=== PATIENT | male | born 1945 | race Caucasian/White ===

== ENCOUNTER 2020-05-15 18:33 | Emergency (ER) | payer MEDICARE ==
[~2020-05-15] VITALS: Ht 172.7 cm; Wt 70.3 kg
[2020-05-15 18:33] VITALS: BP 84/56
--- NOTE | 2020-05-15 18:40 | PHYS DOC ---
General Adult EDM: Chief Complaint: ALTERED MENTAL STATUS HPI: HPI: 74-year-old male with significant history of hypertension, diabetes mellitus, COPD, CAD with CABG, CHF, who presents from nursing facility for the evaluation of altered mentation and reported apneic episodes. The patient is new to the [facility] facility as of noon today. The patient reportedly had gradually decreasing mentation, as well as reported apneic episodes lasting several seconds at a time. Upon presentation, GCS is 7. He has some dried emesis around his mouth concerning for aspiration event. Of note, the patient had a recent bowel resection for pneumatosis with PEG placement at [place] in the very recent past. Review of Systems: Review of Systems: Review of systems unable to be obtained secondary to altered mentation. Heart Score: Risk Factors: Risk Factors: DM, Current or recent (<one month) smoker, HTN, HLP, family history of CAD, obesity. Risk Scores: Score 0 - 3: 2.5% MACE over next 6 weeks - Discharge Home Score 4 - 6: 20.3% MACE over next 6 weeks - Admit for Clinical Observation Score 7 - 10: 72.7% MACE over next 6 weeks - Early Invasive Strategies Physical Exam: PE: Gen: Obtunded. Head: NC/AT. Eyes: No scleral icterus. No conjunctival injection. PERRL 4 mm. ENT: MMM. Dried emesis around mouth. Neck: Supple. NT. CV: Tachycardic and regular 125. Peripheral pulses intact. Resp: Rhonchorous bilaterally. Occasional apneic episodes witnessed to last ~15 seconds at a time. Abd: Soft. NT. ND. Upper abdominal PEG in place. MSK: No peripheral cyanosis. No edema. Neuro: GCS 7. Skin. Warm. Dry. Psych: Obtunded. Current Patient Data: Labs: Laboratory Tests Test 05/15/20 18:41 05/15/20 19:27 White Blood Count 8.7 x10^3/uL (4.0-11.0) Red Blood Count 4.25 x10^6/uL (4.30-5.70) L Hemoglobin 11.0 g/dL (13.0-17.5) L Hematocrit 34.1 % (39.0-53.0) L Mean Corpuscular Volume 80 fL (79-100) Mean Corpuscular Hemoglobin 26 pg (25-35) Mean Corpuscular Hemoglobin Concent 32 g/dL (31-37) Red Cell Distribution Width 18.3 % (11.5-14.5) H Platelet Count 607 x10^3/uL (140-400) H Neutrophils (%) (Auto) 81 % (31-73) H Lymphocytes (%) (Auto) 3 % (24-48) L Monocytes (%) (Auto) 10 % (0-9) H Eosinophils (%) (Auto) 5 % (0-3) H Basophils (%) (Auto) 1 % (0-3) Neutrophils # (Auto) 7.0 x10^3uL (1.8-7.7) Lymphocytes # (Auto) 0.3 x10^3/uL (1.0-4.8) L Monocytes # (Auto) 0.9 x10^3/uL (0.0-1.1) Eosinophils # (Auto) 0.5 x10^3/uL (0.0-0.7) Basophils # (Auto) 0.1 x10^3/uL (0.0-0.2) Segmented Neutrophils % 64 % (35-66) Band Neutrophils % 15 % (0-9) H Lymphocytes % 4 % (24-48) L Monocytes % 7 % (0-10) Eosinophils % 9 % (0-5) H Basophils % 1 % (0-3) Platelet Estimate Increased (ADEQUATE) Sodium Level 135 mmol/L (136-145) L Potassium Level 6.1 mmol/L (3.5-5.1) *H Chloride Level 101 mmol/L (98-107) Carbon Dioxide Level 19 mmol/L (21-32) L Anion Gap 15 (6-14) H Blood Urea Nitrogen 25 mg/dL (8-26) Creatinine 1.5 mg/dL (0.7-1.3) H Estimated GFR (Cockcroft-Gault) 46.0 BUN/Creatinine Ratio 17 (6-20) Glucose Level 145 mg/dL (70-99) H Lactic Acid Level 3.0 mmol/L (0.4-2.0) H Calcium Level 9.3 mg/dL (8.5-10.1) Magnesium Level 2.0 mg/dL (1.8-2.4) Total Bilirubin 0.9 mg/dL (0.2-1.0) Aspartate Amino Transferase (AST) 54 U/L (15-37) H Alanine Aminotransferase (ALT) 55 U/L (16-63) Alkaline Phosphatase 254 U/L (46-116) H Troponin I Quantitative < 0.017 ng/mL (0-0.055) ZQ-Vbo-P-Type Natriuretic Peptide 232 pg/mL (0-124) H Total Protein 7.2 g/dL (6.4-8.2) Albumin 2.7 g/dL (3.4-5.0) L Albumin/Globulin Ratio 0.6 (1.0-1.7) L Blood pH 7.35 (7.35-7.46) Blood Gas PCO2 35 mmHg (35-46) Blood Gas PO2 352 mmHg (71-100) H Blood Gas HCO3 19 mmol/L (21-28) L Arterial Bld O2 Saturation (Calc) 100 % (92-99) H FiO2 100 % EKG: EKG: [] Radiology/Procedures: Radiology/Procedures: []FINDINGS: Single view of chest obtained. Degenerative changes of bilateral shoulders. Poststernotomy changes with surgical clips. Calcific atherosclerosis. Well-defined focal airspace consolidation is not seen. IMPRESSION: * No focal airspace consolidation. Electronically signed by: Mukesh Lozano MD (05/15/2020 6:59 PM) [id number] Course & Med Decision Making: Course & Med Decision Making Pertinent Labs and Imaging studies reviewed. (See chart for details) In summary, 74-year-old male who presents from nursing facility in the setting of recent small bowel resection and PEG tube placement, further evaluation of altered mentation and acute respiratory failure. He was intubated for airway protection at around 1900 with a 7.5 ETT, 22 cm at lip with etomidate/sadia. He was hypotensive and tachycardic prehospital, receiving aggressive IV fluid resuscitation. He was also started on low-dose Levophed drip peripherally. Receiving Rocephin as well as Flagyl with concern for possible aspiration event given recent PEG tube placement as well as perioral dried emesis. Attempted IJ central line placement, though unfortunately, the ultrasound device was not functioning. The patient is currently more stable at this time with good peripheral IV access. We will hold off on blind central access at this time, though we will attempt line femoral line if the need arises. [place] based right femoral line placement given labile BP, requiring > 5 mcg/min levophed. No linear probe available for US guided procedure. Awaiting transport to ICU at [facility]. Spoke with spouse in [place], who initially requested transfer back to [place], though I stated that due to patient's critical state, patient would be best suited for the shortest possible transfer to a tertiary facility, i.e. [facility]. Spouse agreeable. Feroz Disclaimer: [employer] Disclaimer: This electronic medical record was generated, in whole or in part, using a voice recognition dictation system. Departure Departure: Impression: Primary Impression: Acute respiratory failure Additional Impressions: Altered mental status Septic shock Disposition: 05 TRANSFER OTHER ([facility]) Admitting Physician: Other (Dr. Stafford) Condition: CRITICAL Justification of Admission: Justification of Admission: Justification of Admission Dx: Yes CHF: Hemodynamic Instability Respiratory Failure: Severe Resp Distress CENTRAL LINE PLACEMENT CENTRAL LINE PLACEMENT: Occupation of Bpm Analyst: Attending Physician Central Line Indications: Long-term IV med use Hand Hygiene Performed?: Yes Maximum Sterile Barriers Used: Mask, Sterile Gown, Sterile Gloves, Large Sterile Drape, Cap Skin Preperation: (Check All): Chlorhexidine Gluconate Prep dry @ Skin Puncture: Yes Patient < 2 months of age?: No Known allergy to CHG?: No Safety concern in premature in: No Insertion Site: Femoral (right) Antimicrobial Catheter Used?: Yes Central Line Catheter Type?: Non-tunneled Successful Placement?: Yes Critical Care Time Critical care time was [40] minutes exclusive of procedures. OSMIN NELSON DO May 15, 2020 18:40
[2020-05-15] MEDS ORDERED: IV NORMAL SALINE 1,000ML 1,000 ML IV ONE ×3 (18:45→23:30)
[2020-05-15] MEDS ORDERED: NOREPINEPHRINE BITARTRATE 8 MG in IV DEXTROSE 5% 250 ML IV PRN (18:45)
[2020-05-15] MEDS ORDERED: IV NORMAL SALINE 250ML 250 ML ONE (18:48)
[2020-05-15] MEDS ORDERED: NOREPINEPHRINE BITARTRATE 4 MG/4 ML VIAL. IV ONE (18:48)
[2020-05-15 19:02] LABS: BASO # 0.1 x10^3/uL (0.0-0.2); BASO % 1 % (0-3); EOS # 0.5 x10^3/uL (0.0-0.7); EOS % 5 % (0-3); HEMATOCRIT 34.1 % (39.0-53.0); LYMPH # 0.3 x10^3/uL (1.0-4.8); LYMPH % 3 % (24-48); MEAN CORPUSCULAR HEMOGLOBIN 26 pg (25-35); MEAN CORPUSCULAR HGB CONC 32 g/dL (31-37); MEAN CORPUSCULAR VOLUME 80 fL (79-100); MONO # 0.9 x10^3/uL (0.0-1.1); MONO % 10 % (0-9); NEUT % 81 % (31-73); PLATELET COUNT 607 x10^3/uL (140-400); RED BLOOD COUNT 4.25 x10^6/uL (4.30-5.70); RED CELL DISTRIBUTION WIDTH 18.3 % (11.5-14.5); WHITE BLOOD COUNT 8.7 x10^3/uL (4.0-11.0)
--- NOTE | 2020-05-15 19:02 | RAD ---
INDICATION: Reason: resp distress / Spl. Instructions: / History: COMPARISON: None. FINDINGS: Single view of chest obtained. Degenerative changes of bilateral shoulders. Poststernotomy changes with surgical clips. Calcific atherosclerosis. Well-defined focal airspace consolidation is not seen. IMPRESSION: * No focal airspace consolidation. Electronically signed by: Mukesh Lozano MD (05/15/2020 6:59 PM) [id number]
[2020-05-15 19:23] LABS: ALBUMIN 2.7 g/dL (3.4-5.0); ALBUMIN/GLOBULIN RATIO 0.6 (1.0-1.7); CALCIUM 9.3 mg/dL (8.5-10.1); CREATININE 1.5 mg/dL (0.7-1.3); TOTAL BILIRUBIN 0.9 mg/dL (0.2-1.0); TOTAL PROTEIN 7.2 g/dL (6.4-8.2)
[2020-05-15 19:27] LABS: POTASSIUM 6.1 mmol/L (3.5-5.1)
[2020-05-15] MEDS ORDERED: MIDAZOLAM HCL 50 MG in IV NORMAL SALINE 50ML 50 ML IV PRN (19:30)
[2020-05-15 19:40] LABS: BGAS PH 7.35 (7.35-7.46)
[2020-05-15] MEDS ORDERED: ROCURONIUM 50 MG/5 ML VIAL. ONE (20:00)
[2020-05-15] MEDS ORDERED: MIDAZOLAM HCL PF 5 MG/5 ML VIAL. ONE (20:00)
[2020-05-15] MEDS ORDERED: ETOMIDATE 40 MG/20 ML VIAL. IV ONE (20:00)
[2020-05-15] MEDS ORDERED: cefTRIAXone SODIUM 1 GM VIAL ONE ×2 (21:13→23:23)
[2020-05-15] MEDS ORDERED: IV NORMAL SALINE 50ML 0 ML ONE (21:13)
[2020-05-15 21:15] LABS: % BANDS 15 % (0-9); % BASOS 1 % (0-3); % EOS 9 % (0-5); % LYMPHS 4 % (24-48); % MONOS 7 % (0-10); % SEGS 64 % (35-66)
[2020-05-15 21:16] LABS: PLT ESTIMATE INCREASED (ADEQUATE)
--- NOTE | 2020-05-15 21:26 | RAD ---
Exam: Chest one INDICATION: Intubation TECHNIQUE: Frontal view of the chest Comparisons: None FINDINGS: Endotracheal tube with tip approximately 2 cm above the yael. Sternotomy wires are noted. Surgical clips overlying the left heart border are seen. The cardiomediastinal silhouette and pulmonary vessels are within normal limits. Strandy opacities at the left lung base. No pleural effusion. IMPRESSION: Lines and tubes described. Electronically signed by: Kar Salazar MD (05/15/2020 9:24 PM) [id number]
[2020-05-15] MEDS ORDERED: IV NORMAL SALINE 50ML 50 ML ONE (23:24)
[2020-05-15] MEDS ORDERED: MIDAZOLAM HCL PF 5 MG/5 ML VIAL. IV ONE (23:30)
== END 2020-05-15 21:53 | disposition short-term general hospital (02) ==
LOC: ER 18:33
DX: A41.9 Sepsis, unspecified organism (principal); R65.21 Severe sepsis with septic shock; J96.00 Acute respiratory failure, unspecified whether with hypoxia or hypercapnia; R41.82 Altered mental status, unspecified; R11.10 Vomiting, unspecified; J44.9 Chronic obstructive pulmonary disease, unspecified; I11.0 Hypertensive heart disease with heart failure; I50.9 Heart failure, unspecified; E11.9 Type 2 diabetes mellitus without complications
CPT/HCPCS: 31500; 36415; 36556; 36600; 71045; 80053; 82803; 83605; 83735; 83880; 84484; 85007; 85025; 94002; 96365; 96375; 99291; J0696; J2250; J3010; J7030

== ENCOUNTER 2020-09-22 09:27 | Emergency (ER) | payer MEDICARE ==
[~2020-09-22] VITALS: Ht 172.7 cm; Wt 60.0 kg
--- NOTE | 2020-09-22 09:43 | PHYS DOC ---
Past History Past Medical History: CAD, COPD, Diabetes, GERD, High Cholesterol, Hypertension, VT, Pneumonia, Other Additional Past Medical Histor: osteoporosis,back pain,carotid stenosis,osteoarthritis,DDD,PTSD,RESP FAIL Past Surgical History: Coronary Bypass Surgery, Hip Replacement, Tonsillectomy, Other Additional Past Surgical Histo: CABG, BOWEL RESECTION WITH PEG, SEPSIS Alcohol Use: None General Adult EDM: Chief Complaint: URINARY FREQUENCY HPI: HPI: Patient is a male who was sent here from the intermediate because he was not following instruction and being combative today there. Patient was recently diagnosed with UTI on 09/20/20, was put on Macrobid 100 mg bid for 7 days. [place] ent refused to take his medications today, refuse to follow instruction there. Patient said he just bought the place. He owns the place. They are working for him so they have to listen to him not the other way around. Patient denied suicidal ideation or homicidal ideation. He denied any abdominal pain, no nausea or vomiting, no chest pain, no shortness of air, no fever, no cough. Review of Systems: Review of Systems: Constitutional: Denies fever or chills Eyes: Denies change in visual acuity HENT: Denies nasal congestion or sore throat Respiratory: Denies cough or shortness of breath Cardiovascular: Denies chest pain or edema GI: Denies abdominal pain, nausea, vomiting, bloody stools or diarrhea : Denies dysuria Musculoskeletal: Denies back pain or joint pain Integument: Denies rash Neurologic: Denies headache, focal weakness or sensory changes Endocrine: Denies polyuria or polydipsia Lymphatic: Denies swollen glands Psychiatric: Denies depression or anxiety Allergies: Allergies: Allergies Coded Allergies Type Severity Reaction Last Updated Verified gabapentin Allergy Unknown Rash 05/16/20 Yes pantoprazole Allergy Unknown Rash 05/16/20 Yes Physical Exam: PE: Constitutional: Well developed, well nourished, no acute distress, non-toxic appearance. [] HENT: Normocephalic, atraumatic, bilateral external ears normal, oropharynx moist, no oral exudates, nose normal. [] Eyes: PERRLA, EOMI, conjunctiva normal, no discharge. [] Neck: Normal range of motion, no tenderness, supple, no stridor. [] Cardiovascular:Heart rate regular rhythm, no murmur [] Lungs & Thorax: Bilateral breath sounds clear to auscultation [] Abdomen: Bowel sounds normal, soft, no tenderness, no masses, no pulsatile masses. [] Skin: Warm, dry, no erythema, no rash. [] Back: No tenderness, no CVA tenderness. [] Extremities: No tenderness, no cyanosis, no clubbing, ROM intact, no edema. [] Neurologic: Alert and oriented X 3, normal motor function, normal sensory function, no focal deficits noted. [] Psychologic: Affect normal, judgement normal, mood normal. [] Current Patient Data: Labs: Laboratory Tests Test 09/22/20 10:00 09/22/20 10:20 Urine Collection Type Unknown Urine Color Yellow Urine Clarity Cloudy Urine pH 5.5 Urine Specific [place] 1.025 Urine Protein 30 mg/dl Urine Glucose (UA) Neg mg/dL Urine Ketones (Stick) Neg mg/dL Urine Blood Large Urine Nitrite Neg Urine Bilirubin Neg Urine Urobilinogen Dipstick 0.2 mg/dL Urine Leukocyte Esterase Trace Urine RBC >40 /HPF Urine WBC 11-20 /HPF Urine Squamous Epithelial Cells Occ /LPF Urine Bacteria Few /HPF Urine Opiates Screen Neg Urine Methadone Screen Neg Urine Barbiturates Neg Urine Phencyclidine Screen Neg Urine Amphetamine/Methamphetamine Neg Urine Benzodiazepines Screen Neg Urine Cocaine Screen Neg Urine Cannabinoids Screen Neg Urine Ethyl Alcohol Neg White Blood Count 4.8 x10^3/uL Red Blood Count 4.85 x10^6/uL Hemoglobin 11.7 g/dL Hematocrit 37.0 % Mean Corpuscular Volume 76 fL Mean Corpuscular Hemoglobin 24 pg Mean Corpuscular Hemoglobin Concent 32 g/dL Red Cell Distribution Width 16.9 % Platelet Count 187 x10^3/uL Neutrophils (%) (Auto) 58 % Lymphocytes (%) (Auto) 25 % Monocytes (%) (Auto) 9 % Eosinophils (%) (Auto) 6 % Basophils (%) (Auto) 1 % Neutrophils # (Auto) 2.8 x10^3uL Lymphocytes # (Auto) 1.2 x10^3/uL Monocytes # (Auto) 0.4 x10^3/uL Eosinophils # (Auto) 0.3 x10^3/uL Basophils # (Auto) 0.1 x10^3/uL Sodium Level 137 mmol/L Potassium Level 3.2 mmol/L Chloride Level 102 mmol/L Carbon Dioxide Level 26 mmol/L Anion Gap 9 Blood Urea Nitrogen 10 mg/dL Creatinine 1.0 mg/dL Estimated GFR (Cockcroft-Gault) 73.2 BUN/Creatinine Ratio 10 Glucose Level 137 mg/dL Calcium Level 8.7 mg/dL Magnesium Level 1.8 mg/dL Total Bilirubin 0.6 mg/dL Aspartate Amino Transf (AST/SGOT) 30 U/L Alanine Aminotransferase (ALT/SGPT) 14 U/L Alkaline Phosphatase 129 U/L Total Protein 7.0 g/dL Albumin 2.6 g/dL Albumin/Globulin Ratio 0.6 Thyroid Stimulating Hormone (TSH) 2.217 uIU/mL Salicylates Level < 2.8 mg/dL Salicylate Last Dose Date Unknown Salicylate Last Dose Time Unknown Acetaminophen Level < 2 mcg/mL Acetaminophen Last Dose Date Unknown Acetaminophen Last Dose Time Unknown Current Medications Medications (Trade) Dose Ordered Sig/[place] Route PRN Reason Start Time Stop Time Status Last Admin Dose Admin Sodium Chloride 500 ml @ 0 mls/hr 1X ONCE IV 09/22/20 10:15 09/22/20 10:16 DC 09/22/20 10:39 Ceftriaxone Sodium 1 gm/ Sodium Chloride 50 ml @ 100 mls/hr 1X ONCE IV 09/22/20 11:45 09/22/20 12:14 DC 09/22/20 12:29 Sodium Chloride 500 ml @ 0 mls/hr 1X ONCE IV 09/22/20 11:45 09/22/20 11:51 DC 09/22/20 12:28 Sodium Chloride 50 ml @ As Directed STK-MED ONCE .ROUTE 09/22/20 12:21 09/22/20 12:21 DC Ceftriaxone Sodium (Rocephin) 1 gm STK-MED ONCE .ROUTE 09/22/20 12:21 09/22/20 12:21 DC Potassium Chloride (Klor-Con) 40 meq 1X ONCE PO 09/22/20 12:45 09/22/20 12:46 DC 09/22/20 13:19 EKG: EKG: [] Radiology/Procedures: Radiology/Procedures: [] Heart Score: Risk Factors: Risk Factors: DM, Current or recent (<one month) smoker, HTN, HLP, family history of CAD, obesity. Risk Scores: Score 0 - 3: 2.5% MACE over next 6 weeks - Discharge Home Score 4 - 6: 20.3% MACE over next 6 weeks - Admit for Clinical Observation Score 7 - 10: 72.7% MACE over next 6 weeks - Early Invasive Strategies Course & Med Decision Making: Course & Med Decision Making Pertinent Labs and Imaging studies reviewed. (See chart for details) Patient is a 75-year-old male who was sent here from intermediate because of he was not cooperative with them this morning.. He was very cooperative, follow instruction and command. He was found to have UTI. He was given IV fluid and Rocephin IV. He denied suicidal ideation or homicidal ideation. He was discharged back to the intermediate. Dragon Disclaimer: [employer] Disclaimer: This electronic medical record was generated, in whole or in part, using a voice recognition dictation system. Departure Departure: Impression: Primary Impression: UTI (urinary tract infection) Additional Impression: Dehydration Disposition: 01 DC HOME SELF CARE/HOMELESS Condition: STABLE Referrals: PCP,UNKNOWN (PCP) STOP TAKING ANTIBIOTIC Patient Instructions: Dehydration, Adult, Urinary Tract Infection Additional Instructions: Thank you for visiting our Emergency Department. We appreciate you trusting us with your care. If any additional problems come up don't hesitate to return to visit us. Please follow up with your primary care provider so they can plan additional care if needed and know about the problem that you had. If symptoms worsen come back to the Emergency Department. Any concerning symptoms that start such as chest pain, shortness of air, weakness or numbness on one side of the body, running high fevers or any other concerning symptoms return to the ER. Scripts Sulfamethoxazole/Trimethoprim (BACTRIM DS TABLET) 1 Each Tablet 1 TAB PO BID for uti for 10 Days, #20 TAB 0 Refills Prov: KEVIN PADILLA DO 09/22/20 KEVIN PADILLA DO Sep 22, 2020 09:43
[2020-09-22] MEDS ORDERED: IV NORMAL SALINE 500ML 500 ML IV ONE ×2 (10:15→11:45)
[2020-09-22 10:30] LABS: BARBITURATES NEG (NEG); BENZODIAZEPINES NEG (NEG); CANNABINOIDS NEG (NEG); COCAINE NEG (NEG); METHADONE NEG (NEG); OPIATES NEG (NEG); PHENCYCLIDINE NEG (NEG)
[2020-09-22 10:36] LABS: BILIRUBIN,URINE NEG (NEG); CLARITY,URINE CLOUDY; COLOR,URINE YELLOW; GLUCOSE,URINE NEG (NEG); NITRITE,URINE NEG (NEG); RBC,URINE >40 /HPF (0-2); UROBILINOGEN,URINE 0.2 mg/dL (0.2 mg/dL)
[2020-09-22 10:37] LABS: BACTERIA,URINE FEW /HPF (0-FEW); SQUAMOUS EPITHELIAL CELL,UR OCC /LPF
[2020-09-22 10:44] LABS: AMPHETAMINE/METHAMPHETAMINE NEG (NEG)
[2020-09-22 10:59] LABS: BASO # 0.1 x10^3/uL (0.0-0.2); BASO % 1 % (0-3); CALCIUM 8.7 mg/dL (8.5-10.1); EOS # 0.3 x10^3/uL (0.0-0.7); EOS % 6 % (0-3); GFR 73.2; HEMOGLOBIN 11.7 g/dL (13.0-17.5); LYMPH # 1.2 x10^3/uL (1.0-4.8); LYMPH % 25 % (24-48); MEAN CORPUSCULAR HEMOGLOBIN 24 pg (25-35); MEAN CORPUSCULAR HGB CONC 32 g/dL (31-37); MEAN CORPUSCULAR VOLUME 76 fL (79-100); MONO # 0.4 x10^3/uL (0.0-1.1); MONO % 9 % (0-9); NEUT # 2.8 x10^3uL (1.8-7.7); NEUT % 58 % (31-73); PLATELET COUNT 187 x10^3/uL (140-400); POTASSIUM 3.2 mmol/L (3.5-5.1); RED BLOOD COUNT 4.85 x10^6/uL (4.30-5.70); RED CELL DISTRIBUTION WIDTH 16.9 % (11.5-14.5); WHITE BLOOD COUNT 4.8 x10^3/uL (4.0-11.0)
[2020-09-22 11:04] LABS: ACETAMIN < 2 mcg/mL (10-30); SALIC < 2.8 mg/dL (2.8-20.0)
[2020-09-22 11:05] LABS: ALBUMIN 2.6 g/dL (3.4-5.0); ALBUMIN/GLOBULIN RATIO 0.6 (1.0-1.7); MAGNESIUM 1.8 mg/dL (1.8-2.4); TOTAL BILIRUBIN 0.6 mg/dL (0.2-1.0)
[2020-09-22] MEDS ORDERED: IV NORMAL SALINE 50ML 50 ML ONE (12:21)
[2020-09-22] MEDS ORDERED: cefTRIAXone SODIUM 1 GM VIAL ONE (12:21)
[2020-09-22] MEDS ORDERED: POTASSIUM CHLORIDE 20 MEQ TABLET.ER. PO ONE (12:45)
[2020-09-22 13:20] VITALS: BP 126/56
[2020-09-22] MEDS ORDERED: SULF1TAB24 PO (13:50)
[2020-09-22] MEDS ORDERED: VIT1TABL6 PO (22:54)
[2020-09-22] MEDS ORDERED: AMLO2.5T5 PO (22:54)
[2020-09-22] MEDS ORDERED: MIRT7.5T8 PO (22:54)
[2020-09-22] MEDS ORDERED: TAMS0.4C97 PO (22:54)
[2020-09-22] MEDS ORDERED: LANO250L TP (22:54)
[2020-09-22] MEDS ORDERED: TRAM50TA PO (22:54)
[2020-09-22] MEDS ORDERED: MELA10TA PO (22:54)
[2020-09-22] MEDS ORDERED: CHOL5POW PO (22:54)
[2020-09-22] MEDS ORDERED: FAMO20TA5 PO (22:54)
[2020-09-22] MEDS ORDERED: APIX5TAB3 PO (22:54)
[2020-09-22] MEDS ORDERED: ACET325T21 PO (22:54)
[2020-09-22] MEDS ORDERED: ALBU2.5V5 NEB (22:54)
[2020-09-22] MEDS ORDERED: LOPE2TAB27 PO (22:54)
[2020-09-22] MEDS ORDERED: OLAN2.5T3 PO (22:54)
[2020-09-22] MEDS ORDERED: GLUC1KIT IM (22:54)
[2020-09-22] MEDS ORDERED: METO25TA4 PO (22:54)
[2020-09-22] MEDS ORDERED: L. R1CAP2 PO (22:54)
[2020-09-22] MEDS ORDERED: NPH,100I3 SQ (22:54)
[2020-09-22] MEDS ORDERED: HALO5AMP IJ (22:54)
[2020-09-22] MEDS ORDERED: ASPI81TA59 PO (22:54)
[2020-09-22] MEDS ORDERED: IPRA3AMP29 NEB (22:54)
[2020-09-22] MEDS ORDERED: POTA20TA4 PO (22:54)
== END 2020-09-22 14:39 | disposition home or self-care (01) ==
LOC: ER 09:27
DX: N39.0 Urinary tract infection, site not specified (principal); E86.0 Dehydration; R35.0 Frequency of micturition; J44.9 Chronic obstructive pulmonary disease, unspecified; K21.9 Gastro-esophageal reflux disease without esophagitis; E11.9 Type 2 diabetes mellitus without complications; E78.00 Pure hypercholesterolemia, unspecified; I11.9 Hypertensive heart disease without heart failure; I25.2 Old myocardial infarction; Z98.890 Other specified postprocedural states; Z88.8 Allergy status to other drugs, medicaments and biological substances
CPT/HCPCS: 36415; 80053; 80307; 80329; 81001; 83735; 84443; 85025; 87086; 96361; 96365; 99284; J0696; J7040; G0480

== ENCOUNTER 2020-09-22 19:49 | Inpatient (IN) | payer MEDICARE ==
[~2020-09-22] VITALS: Ht 165.1 cm; Wt 63.6 kg
[~2020-09-22 19:49] MED LIST: SULF1TAB24 PO
[2020-09-22 21:10] VITALS: BP 148/71
[2020-09-22] MEDS ORDERED: AMLO2.5T5 PO (22:54)
[2020-09-22] MEDS ORDERED: ASPI81TA59 PO (22:54)
[2020-09-22] MEDS ORDERED: VIT1TABL6 PO (22:54)
[2020-09-22] MEDS ORDERED: METO25TA4 PO (22:54)
[2020-09-22] MEDS ORDERED: L. R1CAP2 PO (22:54)
[2020-09-22] MEDS ORDERED: ALBU2.5V5 NEB (22:54)
[2020-09-22] MEDS ORDERED: OLAN2.5T3 PO (22:54)
[2020-09-22] MEDS ORDERED: GLUC1KIT IM (22:54)
[2020-09-22] MEDS ORDERED: POTA20TA4 PO (22:54)
[2020-09-22] MEDS ORDERED: APIX5TAB3 PO (22:54)
[2020-09-22] MEDS ORDERED: LANO250L TP (22:54)
[2020-09-22] MEDS ORDERED: IPRA3AMP29 NEB (22:54)
[2020-09-22] MEDS ORDERED: FAMO20TA5 PO (22:54)
[2020-09-22] MEDS ORDERED: ACET325T21 PO (22:54)
[2020-09-22] MEDS ORDERED: NPH,100I3 SQ (22:54)
[2020-09-22] MEDS ORDERED: HALO5AMP IJ (22:54)
[2020-09-22] MEDS ORDERED: MELA10TA PO (22:54)
[2020-09-22] MEDS ORDERED: TAMS0.4C97 PO (22:54)
[2020-09-22] MEDS ORDERED: MIRT7.5T8 PO (22:54)
[2020-09-22] MEDS ORDERED: LOPE2TAB27 PO (22:54)
[2020-09-22] MEDS ORDERED: TRAM50TA PO (22:54)
[2020-09-22] MEDS ORDERED: CHOL5POW PO (22:54)
[2020-09-22 22:58] LABS: BASO # 0.1 x10^3/uL (0.0-0.2); BASO % 1 % (0-3); EOS # 0.3 x10^3/uL (0.0-0.7); EOS % 4 % (0-3); HEMATOCRIT 36.1 % (39.0-53.0); HEMOGLOBIN 11.3 g/dL (13.0-17.5); LYMPH # 1.5 x10^3/uL (1.0-4.8); LYMPH % 23 % (24-48); MEAN CORPUSCULAR HEMOGLOBIN 24 pg (25-35); MEAN CORPUSCULAR HGB CONC 31 g/dL (31-37); MEAN CORPUSCULAR VOLUME 76 fL (79-100); MONO # 0.8 x10^3/uL (0.0-1.1); MONO % 12 % (0-9); NEUT % 60 % (31-73); PLATELET COUNT 199 x10^3/uL (140-400); RED BLOOD COUNT 4.73 x10^6/uL (4.30-5.70); WHITE BLOOD COUNT 6.7 x10^3/uL (4.0-11.0)
[2020-09-22 23:14] LABS: ALBUMIN 2.4 g/dL (3.4-5.0); ALBUMIN/GLOBULIN RATIO 0.6 (1.0-1.7); CALCIUM 8.3 mg/dL (8.5-10.1); GFR 73.2; MAGNESIUM 1.9 mg/dL (1.8-2.4); TOTAL BILIRUBIN 0.3 mg/dL (0.2-1.0); TOTAL PROTEIN 6.4 g/dL (6.4-8.2)
[2020-09-22 23:27] LABS: POTASSIUM 2.9 mmol/L (3.5-5.1)
[2020-09-22] MEDS: POTASSIUM BICARB 10 MEQ EFFERVESCENT TABLET. FT SCH (23:35)
[2020-09-23 00:35] LABS: BILIRUBIN,URINE NEG (NEG); CLARITY,URINE CLOUDY; COLOR,URINE YELLOW; GLUCOSE,URINE NEG (NEG); NITRITE,URINE NEG (NEG); RBC,URINE >40 /HPF (0-2); UROBILINOGEN,URINE 0.2 mg/dL (0.2 mg/dL)
[2020-09-23 00:36] LABS: BACTERIA,URINE FEW /HPF (0-FEW); SQUAMOUS EPITHELIAL CELL,UR OCC /LPF
--- NOTE | 2020-09-23 02:35 | EKG ---
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
[2020-09-23] MEDS: POTASSIUM BICARB 10 MEQ EFFERVESCENT TABLET. FT SCH (03:40)
[2020-09-23 08:50] VITALS: BP 149/77
[2020-09-23 09:48] VITALS: BP 139/75
[2020-09-23 10:48] LABS: THYROID STIM HORMONE (TSH) 2.056 uIU/mL (0.358-3.740)
[2020-09-23 11:31] LABS: CALCIUM 8.5 mg/dL (8.5-10.1); CREATININE 0.9 mg/dL (0.7-1.3); GFR 82.7; POTASSIUM 3.7 mmol/L (3.5-5.1)
[2020-09-23] MEDS ORDERED: ACETAMINOPHEN 325 MG TABLET PO PRN (12:30)
[2020-09-23] MEDS ORDERED: HALOPERIDOL LACTATE 5 MG IJ SCH ×2 (12:30→13:00)
[2020-09-23] MEDS ORDERED: IPRATRPIUM/ALBUTEROL 0.5/2.5MG 3 ML NEBU. NEB PRN ×2 (12:30→13:00)
[2020-09-23] MEDS ORDERED: NON FORMULARY ITEM (Glucagon,Human Recombinant (Glucagon Emergency Kit) 1 MG) IM SCH ×2 (12:30→13:00)
[2020-09-23] MEDS ORDERED: NON FORMULARY ITEM (Melatonin 1 TAB) PO PRN ×2 (12:30→13:00)
[2020-09-23] MEDS ORDERED: LOPERAMIDE HCL PO PRN ×2 (12:30→13:00)
[2020-09-23] MEDS ORDERED: ALBUTEROL SULFATE 2.5 MG/3 ML NEBU. NEB PRN ×2 (12:30→13:00)
[2020-09-23] MEDS ORDERED: traMADol 50 MG TABLET PO PRN ×2 (12:30→13:00)
[2020-09-23] MEDS ORDERED: MINERAL OIL TP PRN ×2 (12:30→13:00)
[2020-09-23] MEDS ORDERED: LANOLIN TP PRN ×2 (12:30→13:00)
--- NOTE | 2020-09-23 13:23 | SSS ---
ADMIT DATE: 09/23/2020 HISTORY OF PRESENT ILLNESS: The patient is a 75-year-old male patient, a resident at [facility] in [facility], who was admitted to [facility] to be screened for COVID-19 as he will be admitted to [facility] on account of chasing staff, threatening to rape and kill the staff, coming after the staff, threatening to burn down the facility and kill himself, he is going to get a gun. Despite treatment with Haldol, the patient continue this behavior and therefore, the patient was admitted and in fact his tested for coronavirus that to be negative. He himself denied any complaint; however, on initial evaluation, he was found to have hypokalemia with serum potassium of 2.9 that was replenished and his serum potassium is now 3.7 mEq per liter. PAST MEDICAL HISTORY: Significant for type 2 diabetes mellitus with hyperglycemia, dysphagia, oropharyngeal phase. He has chronic obstructive pulmonary disease, severe protein-calorie malnutrition. He has heart failure, essential hypertension, atherosclerotic disease with coronary artery disease, status post coronary artery bypass graft surgery, benign prostatic hypertrophy and resultant urinary retention. He has a gastrostomy tube. PAST SURGICAL HISTORY: Significant for bilateral cataract extraction, tonsillectomy, has coronary artery bypass graft surgery and right hip arthroplasty. He apparently has had a gastrostomy before, that was removed. ALLERGIES: HE IS ALLERGIC TO CALCITONIN, GABAPENTIN AND PROTONIX. MEDICATIONS: He is currently on following medications: He is on ipratropium bromide and albuterol sulfate 0.5-2.5 mg 3 mL by nebulizer twice a day, albuterol sulfate 2.5 mg 3 mL by nebulizer every 4 hours, tamsulosin 0.4 mg daily, apixaban 5 mg twice a day, cholestyramine 5 g powder twice a day, metoprolol tartrate 25 mg p.o. b.i.d., amlodipine besylate 2.5 mg daily, aspirin 81 mg once a day, tramadol 50 mg p.o. q.i.d., acetaminophen 650 mg every 6 hours, mirtazapine 7.5 mg at bedtime, Haldol 5 mg/mL, olanzapine 2.5 mg at bedtime, potassium chloride 20 mEq once a day, loperamide 2 mg 4 times a day, famotidine 20 mg twice a day, lactobacillus rhamnosus 1 capsule daily. He is on NPH insulin 10 units 3 times a day before meals and glucagon 1 mg intramuscular as needed for hypoglycemia, Eucerin cream applied topically as needed for dry skin twice a day, Cerefolin tablet 1 tablet daily and melatonin 3 mg at bedtime. REVIEW OF SYSTEMS: As per history of present illness. FAMILY HISTORY: Noncontributory. SOCIAL HISTORY: He is , has no children. According to him, he continued to smoke, does not drink alcohol or use recreational drugs. 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 PHYSICAL EXAMINATION: GENERAL: When I examined him this afternoon, he looked well and was clearly in no apparent respiratory distress. He was pale, but no jaundice, cyanosis or thyromegaly. No jugular venous distention or limb edema. VITAL SIGNS: His heart rate was 81, blood pressure was 139/75, temperature was 98.5, respiratory rate was 16, and oxygen saturation was 97% on room air. HEAD, EYES, EARS, NOSE AND THROAT: Showed normocephalic and atraumatic. NECK: Supple. HEART: Normal first and second heart sounds. No gallop, rub or murmur. CHEST: Showed central trachea, equal bilateral chest expansion, air entry, vesicular breath sounds. No crepitation or rhonchi. ABDOMEN: Distended, soft, nontender. NEUROLOGIC: He is awake, alert, responding appropriately. All cranial nerves intact. EXTREMITIES: He moves extremities without difficulty. He apparently ambulates with a walker. LABORATORY DATA: Showed a white cell count of 6700, hemoglobin 11, hematocrit 36, MCV 76 and platelet count of 199,000 with normal manual differential. His chemistry initially showed a serum sodium 140, potassium 2.9, chloride 106, bicarbonate 26, anion gap of 8, BUN 7, creatinine 1, estimated GFR was 73 mL per minute. His glucose was 50. Calcium was 8.3, magnesium was 1.9. Total bilirubin, AST, ALT, alkaline phosphatase were normal. Total protein was 6.4, albumin was 2.4. Serum triglycerides were 109, total cholesterol was 131, LDL was 75, HDL cholesterol was 34 and ratio was 3. TSH was 2.056. His D-dimer was 1.36. Urinalysis showed the urine was yellow, cloudy with a pH of 6, specific gravity of 1.030, small amount of protein. The urine was negative for glucose, ketones. There was large amount of blood, negative for nitrite and leukocyte esterase. There were more than 40 rbc's, 5-10 wbc's, and very few bacteria. His SARS-CoV-2 by PCR was negative. IMPRESSION: In summary, this is a 75-year-old male patient, who was a resident at [facility] in [facility], who was admitted on account of chasing staff, threatening to rape and kill staff, coming after the staff, threatening to burn down the facility and kill himself, he is going to get a gun. The patient was screened for his COVID-19 at the skilled side and turned out to be negative and therefore, the patient will be admitted to [facility] for inpatient psychiatric stabilization. RASHI RANDHAWA MD DR: JEAN/mirtha JOB#: [id number] / [id number]
[2020-09-23] MEDS ORDERED: NPH HUMAN INSULIN ISOPHANE SQ SCH ×2 (16:30)
[2020-09-23] MEDS ORDERED: OLANZapine 2.5 MG TABLET PO SCH ×2 (21:00)
[2020-09-23] MEDS ORDERED: SMX/TMP 800/160MG 2TABLET STARTPACK. PO SCH ×2 (21:00)
[2020-09-23] MEDS ORDERED: APIXABAN 5 MG TABLET. PO SCH ×2 (21:00)
[2020-09-23] MEDS ORDERED: MIRTAZAPINE 7.5 MG TABLET. PO SCH ×2 (21:00)
[2020-09-23] MEDS ORDERED: CHOLESTYRAMINE 4 GM PO SCH ×2 (21:00)
[2020-09-23] MEDS ORDERED: METOPROLOL TART IMMED RELEASE 25 MG TABLET. PO SCH ×2 (21:00)
[2020-09-23] MEDS ORDERED: FAMOTIDINE 20 MG TABLET PO SCH ×2 (21:00)
[2020-09-24] MEDS ORDERED: ASPIRIN CHEWABLE 81 MG TABLET. PO SCH ×2 (09:00)
[2020-09-24] MEDS ORDERED: INULIN PO SCH ×2 (09:00)
[2020-09-24] MEDS ORDERED: VIT B12 PO SCH ×2 (09:00)
[2020-09-24] MEDS ORDERED: POTASSIUM CHLORIDE 20 MEQ TABLET.ER. PO SCH ×2 (09:00)
[2020-09-24] MEDS ORDERED: VIT B6 PO SCH ×2 (09:00)
[2020-09-24] MEDS ORDERED: RHAMNOSUS GG PO SCH ×2 (09:00)
[2020-09-24] MEDS ORDERED: TAMSULOSIN 0.4 MG CAP.ER.24H. PO SCH ×2 (09:00)
[2020-09-24] MEDS ORDERED: B2 PO SCH ×2 (09:00)
[2020-09-24] MEDS ORDERED: amLODIPine BESYLATE 2.5 MG TABLET PO SCH ×2 (09:00)
[2020-09-24] MEDS ORDERED: LMEFOLATE CA PO SCH ×2 (09:00)
== END 2020-09-23 12:57 | DRG 640 ==
LOC: ICU 19:49 → UNDODISIN 09-23 12:57
PROVIDERS: ADMIT Internal Medicine; ATTEND Internal Medicine
DX: E87.6 Hypokalemia (principal); E43 Unspecified severe protein-calorie malnutrition; E11.9 Type 2 diabetes mellitus without complications; I11.0 Hypertensive heart disease with heart failure; I25.10 Atherosclerotic heart disease of native coronary artery without angina pectoris; I50.9 Heart failure, unspecified; J44.9 Chronic obstructive pulmonary disease, unspecified; Z96.641 Presence of right artificial hip joint; N40.1 Benign prostatic hyperplasia with lower urinary tract symptoms; R13.12 Dysphagia, oropharyngeal phase; Z20.828 Contact with and (suspected) exposure to other viral communicable diseases; Z93.1 Gastrostomy status; Z95.1 Presence of aortocoronary bypass graft; Z98.41 Cataract extraction status, right eye; Z98.42 Cataract extraction status, left eye; Z88.8 Allergy status to other drugs, medicaments and biological substances; Z68.23 Body mass index [BMI] 23.0-23.9, adult
CPT/HCPCS: 36415; 80048; 80053; 80061; 81001; 82306; 82607; 83036; 83735; 84443; 85025; 85379; 86592; 87086; 93005; U0003

== ENCOUNTER 2020-09-23 12:57 | Inpatient (IN) | payer MEDICARE ==
[~2020-09-23] VITALS: Ht 165.1 cm; Wt 65.6 kg
[~2020-09-23 12:57] MED LIST changes: +ACET325T21 PO; +ALBU2.5V5 NEB; +AMLO2.5T5 PO; +APIX5TAB3 PO; +ASPI81TA59 PO; +CHOL5POW PO; +FAMO20TA5 PO; +GLUC1KIT IM; +HALO5AMP IJ; +IPRA3AMP29 NEB; +L. R1CAP2 PO; +LANO250L TP; +LOPE2TAB27 PO; +MELA10TA PO; +METO25TA4 PO; +MIRT7.5T8 PO; +NPH,100I3 SQ; +OLAN2.5T3 PO; +POTA20TA4 PO; +TAMS0.4C97 PO; +TRAM50TA PO; +VIT1TABL6 PO
[2020-09-23] MEDS ORDERED: ALBUTEROL SULFATE 2.5 MG/3 ML NEBU. NEB PRN (14:15)
[2020-09-23] MEDS ORDERED: IPRATRPIUM/ALBUTEROL 0.5/2.5MG 3 ML NEBU. NEB PRN (14:15)
[2020-09-23] MEDS ORDERED: MINERAL OIL/PETROLATUM TOPICAL CREAM 113GM JAR. TP PRN (14:45)
[2020-09-23] MEDS ORDERED: MAG HYDROX/AL HYDROX/SIMETH 30 ML ORAL.SUSP PO PRN (14:45)
[2020-09-23] MEDS ORDERED: GLUCAGON,HUMAN RECOMBINANT 1 MG KIT. IM PRN (14:45)
[2020-09-23] MEDS ORDERED: MAGNESIUM HYDROXIDE 2,400 MG/30 ML ORAL.SUSP. PO PRN (14:45)
[2020-09-23] MEDS ORDERED: LOPERAMIDE 2 MG CAPSULE PO PRN (14:45)
[2020-09-23] MEDS ORDERED: METHYL SALICYLATE/MENTHOL TOPICAL OINTMENT 57GM TUBE. TP PRN (14:45)
[2020-09-23] MEDS: INSULIN LISPRO 300 UNITS/3 ML VIAL. SQ SCH (17:00)
[2020-09-23 17:34] VITALS: BP 119/71
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
[2020-09-23] MEDS: FAMOTIDINE 20 MG TABLET PO SCH (20:28)
[2020-09-23] MEDS: OLANZapine 2.5 MG TABLET PO SCH (20:28)
[2020-09-23] MEDS: LACTOBACILLUS RHAMNOSUS GG 1 CAPSULE. PO SCH (20:28)
[2020-09-23] MEDS: CHOLESTYRAMINE/ASPARTAME 4 GM PACKET PO SCH (20:28)
[2020-09-23] MEDS: MIRTAZAPINE 7.5 MG TABLET. PO SCH (20:28)
[2020-09-23] MEDS: METOPROLOL TART IMMED RELEASE 25 MG TABLET. PO SCH (20:28)
[2020-09-23] MEDS: APIXABAN 5 MG TABLET. PO SCH (20:29)
[2020-09-23] MEDS: CEFDINIR 300 MG CAPSULE PO SCH (20:29)
--- NOTE | 2020-09-23 20:45 | PDOC ---
Exam Note: Richy Note: Please also refer to the separate dictated note~for this date of service dictated separately.~Patient seen individually. Discussed the patient with Nursing staff reviewed the chart.~Reviewed interim history and current functioning. Reviewed vital signs,~Labs/ Radiology~and current medications noted below. Continue current treatment with the changes noted in the dictated addendum note Assessment: Vital Signs/I&O: Vital Signs Date Time Temp Pulse Resp B/P (MAP) Pulse Ox O2 Delivery O2 Flow Rate FiO2 09/23/20 17:34 98.8 86 18 119/71 (87) 97 Labs: Laboratory Tests Test 09/23/20 15:15 09/23/20 16:55 D-Dimer (Rachel) 2.16 mg/L (0.00-0.50) H Magnesium Level 1.8 mg/dL (1.8-2.4) Glucose (Fingerstick) 117 mg/dL (70-99) H Current Medications: Meds: Current Medications Medications (Trade) Dose Ordered Sig/[place] Route PRN Reason Start Time Stop Time Status Last Admin Dose Admin Insulin Human Lispro (HumaLOG) 10 units TIDWMEALS SQ 09/23/20 17:00 09/23/20 17:00 I have reviewed the current psychotropics carefully including drug interactions. Risk benefit ratio favors no change other than as noted in my dictated progress note. Diagnosis: Problems: (1) Major neurocognitive disorder (2) Dementia in Alzheimer's disease with delusions (3) Dementia in Alzheimer's disease with depression (4) Dementia of the Alzheimer's type with early onset with behavioral disturbance (5) Dementia, vascular, with delusions (6) Dementia, vascular, with depression (7) Anxiety disorder, unspecified (8) Impulse control disorder, unspecified MAYURI ANDERSEN MD Sep 23, 2020 20:45
[2020-09-23] MEDS ORDERED: SMZ/TMP 800/160MG TABLET. PO SCH (21:00)
[2020-09-24 05:57] VITALS: BP 160/80
[2020-09-24] MEDS ORDERED: VIT B12 PO SCH (09:00)
[2020-09-24] MEDS ORDERED: VIT B6 PO SCH (09:00)
[2020-09-24] MEDS ORDERED: B2 PO SCH (09:00)
[2020-09-24] MEDS ORDERED: LMEFOLATE CA PO SCH (09:00)
[2020-09-24] MEDS: POTASSIUM CHLORIDE 20 MEQ TABLET.ER. PO SCH (09:36)
[2020-09-24] MEDS: ASPIRIN CHEWABLE 81 MG TABLET. PO SCH (09:36)
[2020-09-24] MEDS: CHOLESTYRAMINE/ASPARTAME 4 GM PACKET PO SCH ×2 (09:36→20:31)
[2020-09-24] MEDS: LACTOBACILLUS RHAMNOSUS GG 1 CAPSULE. PO SCH ×2 (09:36→20:31)
[2020-09-24] MEDS: TAMSULOSIN 0.4 MG CAP.ER.24H. PO SCH (09:36)
[2020-09-24] MEDS: CEFDINIR 300 MG CAPSULE PO SCH (09:37)
[2020-09-24] MEDS: amLODIPine BESYLATE 2.5 MG TABLET PO SCH (09:37)
[2020-09-24] MEDS: METOPROLOL TART IMMED RELEASE 25 MG TABLET. PO SCH ×2 (09:37→20:32)
[2020-09-24] MEDS: FAMOTIDINE 20 MG TABLET PO SCH ×2 (09:37→20:32)
[2020-09-24] MEDS: APIXABAN 5 MG TABLET. PO SCH ×2 (09:38→20:32)
[2020-09-24] MEDS: INSULIN LISPRO 300 UNITS/3 ML VIAL. SQ SCH ×3 (09:39→17:34)
[2020-09-24] MEDS: DIVALPROEX 125 MG CAP.SPRINK PO SCH ×2 (12:52→17:33)
--- NOTE | 2020-09-24 13:44 | RAD ---
CT HEAD INDICATION: Mental status change COMPARISON: None Available. Exposure: One or more of the following individualized dose reduction techniques were utilized for this examination: 1. Automated exposure control 2. Adjustment of the mA and/or kV according to patient size 3. Use of iterative reconstruction technique TECHNIQUE: 5 mm contiguous axial images were obtained from the skull base to the vertex in both bone and soft tissue algorithm. FINDINGS: Mild bilateral periventricular white matter hypodensities likely chronic small vessel ischemic disease. No evidence of acute intracranial hemorrhage. No extra-axial fluid collections. No mass effect or midline shift. Ventricular size is appropriate. Basal cisterns are patent. No fractures identified.Arrieta-white differentiation is preserved.Globes and orbits are within normal limits. Paranasal sinuses and mastoid air cells are clear. IMPRESSION: No acute intracranial findings. Electronically signed by: Jose Dominguez MD (09/24/2020 1:42 PM) [id number]
[2020-09-24 15:11] VITALS: BP 118/72
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
[2020-09-24] MEDS: CHOLECALCIFEROL (VITAMIN D3) 50,000 UNIT CAPSULE PO SCH (17:59)
[2020-09-24] MEDS: OLANZapine 2.5 MG TABLET PO SCH (20:31)
[2020-09-24] MEDS: MIRTAZAPINE 7.5 MG TABLET. PO SCH (20:32)
--- NOTE | 2020-09-24 21:16 | PDOC ---
Exam Note: Richy Note: Please also refer to the separate dictated note~for this date of service dictated separately.~Patient seen individually. Discussed the patient with Nursing staff reviewed the chart.~Reviewed interim history and current functioning. Reviewed vital signs,~Labs/ Radiology~and current medications noted below. Continue current treatment with the changes noted in the dictated addendum note Assessment: Vital Signs/I&O: Vital Signs Date Time Temp Pulse Resp B/P (MAP) Pulse Ox O2 Delivery O2 Flow Rate FiO2 09/24/20 20:32 89 118/72 09/24/20 15:11 98.3 17 97 09/24/20 05:57 Room Air I & O 09/23/20 09/23/20 09/24/20 15:00 23:00 07:00 Intake Total 260 ml Balance 260 ml Labs: Laboratory Tests Test 09/24/20 08:00 09/24/20 11:50 09/24/20 17:04 Glucose (Fingerstick) 123 mg/dL (70-99) H 63 mg/dL (70-99) L 159 mg/dL (70-99) H Current Medications: Meds: Current Medications Medications (Trade) Dose Ordered Sig/[place] Route PRN Reason Start Time Stop Time Status Last Admin Dose Admin Amlodipine Besylate (Norvasc) 2.5 mg DAILY PO 09/24/20 09:00 09/24/20 09:37 Aspirin (Aspirin Chewable) 81 mg DAILY PO 09/24/20 09:00 09/24/20 09:36 Potassium Chloride (Klor-Con) 20 meq DAILY PO 09/24/20 09:00 09/24/20 09:36 Tamsulosin HCl (Flomax) 0.4 mg DAILY PO 09/24/20 09:00 09/24/20 09:36 Divalproex Sodium (Depakote Sprinkles) 125 mg 0900,1700 PO 09/24/20 12:30 09/24/20 17:33 Vitamin D (Vitamin D3) 50,000 unit WEEKLY PO 09/24/20 17:45 09/24/20 17:59 I have reviewed the current psychotropics carefully including drug interactions. Risk benefit ratio favors no change other than as noted in my dictated progress note. Diagnosis: Problems: (1) History of encephalopathy (2) Impulse control disorder, unspecified (3) Anxiety disorder, unspecified (4) Dementia, vascular, with depression (5) Dementia, vascular, with delusions (6) Dementia in Alzheimer's disease with depression (7) Dementia in Alzheimer's disease with delusions (8) Dementia of the Alzheimer's type with early onset with behavioral disturbance (9) Major neurocognitive disorder MAYURI ANDERSEN MD Sep 24, 2020 21:16
[2020-09-25] MEDS: traMADol 50 MG TABLET PO PRN (03:50)
[2020-09-25 05:51] VITALS: BP 137/73
--- NOTE | 2020-09-25 07:54 | PDOC ---
Exam Note: Richy Note: This note is a late entry for 09/24/2020 covers elements not covered in my initial note. Subjective: The patient was seen on telehealth rounds in the morning of 09/24/2020 for treatment team meeting with Shoshana Perez and Arlene social service agency director and Delilah PERERA. Discussed with nursing staff, reviewed the chart. He slept 8 hours previous night. Per nursing report the patient remains somewhat anxious, labile at times, minimizes, denies any problems prompting admission and rationalizes his behaviors. Review of Systems: Ambulation impaired in wheelchair. No CV, , pulmonary, eye, ENT system symptoms on review. Reliability poor. Mental Status Exam: The patient is oriented to himself and situation. Speech has some latency, at times somewhat pressured. Abstraction is fair. Computation is impaired. Language function intact. Attention span is short. Mood and affect remains somewhat labile, anxious. No suicidal or homicidal ideation. Laboratory Data: Reviewed. Impression: Major neurocognitive disorder Alzheimer vascular with delusion, depression, behavioral disturbance. Anxiety disorder unspecified. Impulse control disorder unspecified. Plan: Given the patients marked mood lability, his previous aggression, we will go ahead and start him on Depakote Sprinkle 125 mg 9 a.m. and 5 p.m. Check CBC, CMP, valproic acid level in 3 days. Continue Remeron and Zyprexa unchanged for now. Adjust further as clinically indicated. Assessment: Vital Signs/I&O: Vital Signs Date Time Temp Pulse Resp B/P (MAP) Pulse Ox O2 Delivery O2 Flow Rate FiO2 09/25/20 05:51 98.3 78 18 137/73 (94) 95 09/24/20 05:57 Room Air I & O 09/24/20 09/24/20 09/25/20 15:00 23:00 07:00 Intake Total 325 ml 445 ml Balance 325 ml 445 ml Labs: Laboratory Tests Test 09/24/20 08:00 09/24/20 11:50 09/24/20 17:04 Glucose (Fingerstick) 123 mg/dL (70-99) H 63 mg/dL (70-99) L 159 mg/dL (70-99) H Current Medications: Meds: Current Medications Medications (Trade) Dose Ordered Sig/[place] Route PRN Reason Start Time Stop Time Status Last Admin Dose Admin Amlodipine Besylate (Norvasc) 2.5 mg DAILY PO 09/24/20 09:00 09/24/20 09:37 Aspirin (Aspirin Chewable) 81 mg DAILY PO 09/24/20 09:00 09/24/20 09:36 Potassium Chloride (Klor-Con) 20 meq DAILY PO 09/24/20 09:00 09/24/20 09:36 Tamsulosin HCl (Flomax) 0.4 mg DAILY PO 09/24/20 09:00 09/24/20 09:36 Divalproex Sodium (Depakote Sprinkles) 125 mg 0900,1700 PO 09/24/20 12:30 09/24/20 17:33 Vitamin D (Vitamin D3) 50,000 unit WEEKLY PO 09/24/20 17:45 09/24/20 17:59 I have reviewed the current psychotropics carefully including drug interactions. Risk benefit ratio favors no change other than as noted in my dictated progress note. Diagnosis: Problems: (1) Impulse control disorder, unspecified (2) Anxiety disorder, unspecified (3) Dementia, vascular, with depression (4) Dementia, vascular, with delusions (5) Dementia in Alzheimer's disease with depression (6) Dementia in Alzheimer's disease with delusions (7) Dementia of the Alzheimer's type with early onset with behavioral disturba nce (8) Major neurocognitive disorder (9) History of encephalopathy MAYURI ANDERSEN MD Sep 25, 2020 07:54
[2020-09-25] MEDS: INSULIN LISPRO 300 UNITS/3 ML VIAL. SQ SCH ×3 (08:00→17:00)
[2020-09-25] MEDS: APIXABAN 5 MG TABLET. PO SCH ×2 (08:59→20:27)
[2020-09-25] MEDS: CHOLESTYRAMINE/ASPARTAME 4 GM PACKET PO SCH ×2 (08:59→20:27)
[2020-09-25] MEDS: TAMSULOSIN 0.4 MG CAP.ER.24H. PO SCH (08:59)
[2020-09-25] MEDS: LACTOBACILLUS RHAMNOSUS GG 1 CAPSULE. PO SCH ×2 (08:59→20:27)
[2020-09-25] MEDS: POTASSIUM CHLORIDE 20 MEQ TABLET.ER. PO SCH (08:59)
[2020-09-25] MEDS: amLODIPine BESYLATE 2.5 MG TABLET PO SCH (08:59)
[2020-09-25] MEDS: DIVALPROEX 125 MG CAP.SPRINK PO SCH ×2 (09:00→17:27)
[2020-09-25] MEDS: FAMOTIDINE 20 MG TABLET PO SCH ×2 (09:00→20:27)
[2020-09-25] MEDS: METOPROLOL TART IMMED RELEASE 25 MG TABLET. PO SCH ×2 (09:00→20:27)
[2020-09-25] MEDS: ASPIRIN CHEWABLE 81 MG TABLET. PO SCH (09:00)
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
[2020-09-25 15:45] VITALS: BP 132/68
[2020-09-25] MEDS: MIRTAZAPINE 7.5 MG TABLET. PO SCH (20:27)
[2020-09-25] MEDS: OLANZapine 2.5 MG TABLET PO SCH (20:27)
--- NOTE | 2020-09-25 20:56 | PDOC ---
Exam Note: Richy Note: Please also refer to the separate dictated note~for this date of service dictated separately.~Patient seen individually. Discussed the patient with Nursing staff reviewed the chart.~Reviewed interim history and current functioning. Reviewed vital signs,~Labs/ Radiology~and current medications noted below. Continue current treatment with the changes noted in the dictated addendum note Assessment: Vital Signs/I&O: Vital Signs Date Time Temp Pulse Resp B/P (MAP) Pulse Ox O2 Delivery O2 Flow Rate FiO2 09/25/20 20:27 81 132/68 09/25/20 15:45 98.2 19 100 09/24/20 05:57 Room Air I & O 09/24/20 09/24/20 09/25/20 15:00 23:00 07:00 Intake Total 325 ml 445 ml Balance 325 ml 445 ml Labs: Laboratory Tests Test 09/25/20 07:32 09/25/20 11:35 09/25/20 17:12 09/25/20 19:33 Glucose (Fingerstick) 98 mg/dL (70-99) 123 mg/dL (70-99) H 148 mg/dL (70-99) H 130 mg/dL (70-99) H Current Medications: I have reviewed the current psychotropics carefully including drug interactions. Risk benefit ratio favors no change other than as noted in my dictated progress note. Diagnosis: Problems: (1) Impulse control disorder, unspecified (2) Anxiety disorder, unspecified (3) Dementia, vascular, with depression (4) Dementia, vascular, with delusions (5) Dementia in Alzheimer's disease with depression (6) Dementia in Alzheimer's disease with delusions (7) Dementia of the Alzheimer's type with early onset with behavioral disturbance (8) Major neurocognitive disorder (9) History of encephalopathy MAYURI ANDERSEN MD Sep 25, 2020 20:56
[2020-09-26 06:00] VITALS: BP 153/80
[2020-09-26 06:29] VITALS: BP 153/80
[2020-09-26] MEDS: ASPIRIN CHEWABLE 81 MG TABLET. PO SCH (08:26)
[2020-09-26] MEDS: LACTOBACILLUS RHAMNOSUS GG 1 CAPSULE. PO SCH ×2 (08:26→21:01)
[2020-09-26] MEDS: INSULIN LISPRO 300 UNITS/3 ML VIAL. SQ SCH ×3 (08:26→17:23)
[2020-09-26] MEDS: FAMOTIDINE 20 MG TABLET PO SCH ×2 (08:26→21:02)
[2020-09-26] MEDS: DIVALPROEX 125 MG CAP.SPRINK PO SCH ×2 (08:27→17:21)
[2020-09-26] MEDS: METOPROLOL TART IMMED RELEASE 25 MG TABLET. PO SCH ×2 (08:27→21:02)
[2020-09-26] MEDS: APIXABAN 5 MG TABLET. PO SCH ×2 (08:27→21:01)
[2020-09-26] MEDS: POTASSIUM CHLORIDE 20 MEQ TABLET.ER. PO SCH (08:27)
[2020-09-26] MEDS: TAMSULOSIN 0.4 MG CAP.ER.24H. PO SCH (08:27)
[2020-09-26] MEDS: amLODIPine BESYLATE 2.5 MG TABLET PO SCH (08:27)
[2020-09-26] MEDS: CHOLESTYRAMINE/ASPARTAME 4 GM PACKET PO SCH ×2 (08:28→21:02)
[2020-09-26 15:46] VITALS: BP 108/76
--- NOTE | 2020-09-26 20:56 | PDOC ---
Exam Note: Richy Note: Please also refer to the separate dictated note~for this date of service dictated separately.~Patient seen individually. Discussed the patient with Nursing staff reviewed the chart.~Reviewed interim history and current functioning. Reviewed vital signs,~Labs/ Radiology~and current medications noted below. Continue current treatment with the changes noted in the dictated addendum note Assessment: Vital Signs/I&O: Vital Signs Date Time Temp Pulse Resp B/P (MAP) Pulse Ox O2 Delivery O2 Flow Rate FiO2 09/26/20 15:46 97.7 96 20 108/76 (87) 97 09/24/20 05:57 Room Air I & O 09/25/20 09/25/20 09/26/20 15:00 23:00 07:00 Intake Total 360 ml 360 ml Balance 360 ml 360 ml Labs: Laboratory Tests Test 09/26/20 07:51 09/26/20 11:40 09/26/20 12:06 09/26/20 17:06 Glucose (Fingerstick) 104 mg/dL (70-99) H 58 mg/dL (70-99) L 98 mg/dL (70-99) 185 mg/dL (70-99) H Test 09/26/20 19:03 Glucose (Fingerstick) 93 mg/dL (70-99) Current Medications: Meds: Current Medications Medications (Trade) Dose Ordered Sig/[place] Route PRN Reason Start Time Stop Time Status Last Admin Dose Admin Insulin Human Lispro (HumaLOG) 8 units TIDWMEALS SQ 09/26/20 17:15 09/26/20 17:23 I have reviewed the current psychotropics carefully including drug interactions. Risk benefit ratio favors no change other than as noted in my dictated progress note. Diagnosis: Problems: (1) Impulse control disorder, unspecified (2) Anxiety disorder, unspecified (3) Dementia, vascular, with depression (4) Dementia, vascular, with delusions (5) Dementia in Alzheimer's disease with depression (6) Dementia in Alzheimer's disease with delusions (7) Dementia of the Alzheimer's type with early onset with behavioral disturbance (8) Major neurocognitive disorder MAYURI ANDERSEN MD Sep 26, 2020 20:56
[2020-09-26] MEDS: OLANZapine 2.5 MG TABLET PO SCH (21:01)
[2020-09-26] MEDS: MIRTAZAPINE 7.5 MG TABLET. PO SCH (21:03)
[2020-09-27 05:37] VITALS: BP 144/79
[2020-09-27 06:04] LABS: BASO # 0.1 x10^3/uL (0.0-0.2); BASO % 2 % (0-3); EOS # 0.4 x10^3/uL (0.0-0.7); EOS % 8 % (0-3); HEMATOCRIT 37.1 % (39.0-53.0); HEMOGLOBIN 11.5 g/dL (13.0-17.5); LYMPH # 1.8 x10^3/uL (1.0-4.8); LYMPH % 37 % (24-48); MEAN CORPUSCULAR HEMOGLOBIN 24 pg (25-35); MEAN CORPUSCULAR HGB CONC 31 g/dL (31-37); MEAN CORPUSCULAR VOLUME 76 fL (79-100); MONO # 0.4 x10^3/uL (0.0-1.1); MONO % 8 % (0-9); NEUT # 2.3 x10^3uL (1.8-7.7); NEUT % 46 % (31-73); PLATELET COUNT 198 x10^3/uL (140-400); RED BLOOD COUNT 4.87 x10^6/uL (4.30-5.70); RED CELL DISTRIBUTION WIDTH 17.3 % (11.5-14.5)
[2020-09-27 06:36] LABS: ALBUMIN 2.4 g/dL (3.4-5.0); ALBUMIN/GLOBULIN RATIO 0.6 (1.0-1.7); ALK PHOS 139 U/L (46-116); ALT (SGPT) 12 U/L (16-63); ANION GAP 6 (6-14); AST (SGOT) 23 U/L (15-37); BLOOD UREA NITROGEN 7 mg/dL (8-26); BUN/CREATININE RATIO 7 (6-20); CALCIUM 8.8 mg/dL (8.5-10.1); CARBON DIOXIDE 27 mmol/L (21-32); CHLORIDE 105 mmol/L (98-107); GFR 73.2; GLUCOSE 103 mg/dL (70-99); SODIUM 138 mmol/L (136-145); TOTAL BILIRUBIN 0.5 mg/dL (0.2-1.0); TOTAL PROTEIN 6.6 g/dL (6.4-8.2); VAL ACID 26 mcg/mL (50-100)
[2020-09-27] MEDS: INSULIN LISPRO 300 UNITS/3 ML VIAL. SQ SCH ×3 (08:00→17:00)
[2020-09-27] MEDS: ASPIRIN CHEWABLE 81 MG TABLET. PO SCH (09:14)
[2020-09-27] MEDS: amLODIPine BESYLATE 2.5 MG TABLET PO SCH (09:14)
[2020-09-27] MEDS: FAMOTIDINE 20 MG TABLET PO SCH ×2 (09:14→20:54)
[2020-09-27] MEDS: POTASSIUM CHLORIDE 20 MEQ TABLET.ER. PO SCH (09:14)
[2020-09-27] MEDS: METOPROLOL TART IMMED RELEASE 25 MG TABLET. PO SCH ×2 (09:15→20:54)
[2020-09-27] MEDS: CHOLESTYRAMINE/ASPARTAME 4 GM PACKET PO SCH ×2 (09:15→20:54)
[2020-09-27] MEDS: TAMSULOSIN 0.4 MG CAP.ER.24H. PO SCH (09:15)
[2020-09-27] MEDS: DIVALPROEX 125 MG CAP.SPRINK PO SCH ×3 (09:15→20:54)
[2020-09-27] MEDS: LACTOBACILLUS RHAMNOSUS GG 1 CAPSULE. PO SCH ×2 (09:15→20:53)
[2020-09-27] MEDS: APIXABAN 5 MG TABLET. PO SCH ×2 (09:15→20:53)
[2020-09-27 15:38] VITALS: BP 124/70
--- NOTE | 2020-09-27 20:52 | PDOC ---
Exam Note: Richy Note: This note is a late entry for 09/25/2020 covers elements not covered in my initial note. Subjective: The patient was seen face to face in the evening of 09/25/2020 with Delilah PERERA. Discussed with nursing staff, reviewed the chart. He slept 5-3/4 hours previous night. The patient remains somewhat anxious, labile, but redirectable. Review of Systems: Ambulation impaired in wheelchair. No CV, , pulmonary, eye, ENT system symptoms on review. The patient still denies any problems that he was blamed for prior to admission and I addressed this with him. Mental Status Exam: The patient is oriented to himself and situation. Speech has some latency, at times somewhat pressured. Abstraction is fair. Computation is impaired. Language function intact. Attention span is short. Mood and affect somewhat anxious. No suicidal or homicidal ideation. Laboratory Data: Reviewed. Impression: Major neurocognitive disorder Alzheimer vascular with delusion, depression, behavioral disturbance. Anxiety disorder unspecified. Impulse control disorder unspecified. Plan: No change from initial note. We will make further adjustments after we get next set of labs on the Depakote and valproic acid level on 09/27. Assessment: Vital Signs/I&O: Vital Signs Date Time Temp Pulse Resp B/P (MAP) Pulse Ox O2 Delivery O2 Flow Rate FiO2 09/27/20 15:38 98.0 81 20 124/70 (88) 99 09/24/20 05:57 Room Air I & O 09/26/20 09/26/20 09/27/20 15:00 23:00 07:00 Intake Total 560 ml 480 ml Balance 560 ml 480 ml Labs: Laboratory Tests Test 09/27/20 05:50 09/27/20 07:14 09/27/20 11:54 09/27/20 16:49 White Blood Count 5.0 x10^3/uL (4.0-11.0) Red Blood Count 4.87 x10^6/uL (4.30-5.70) Hemoglobin 11.5 g/dL (13.0-17.5) L Hematocrit 37.1 % (39.0-53.0) L Mean Corpuscular Volume 76 fL (79-100) L Mean Corpuscular Hemoglobin 24 pg (25-35) L Mean Corpuscular Hemoglobin Concent 31 g/dL (31-37) Red Cell Distribution Width 17.3 % (11.5-14.5) H Platelet Count 198 x10^3/uL (140-400) Neutrophils (%) (Auto) 46 % (31-73) Lymphocytes (%) (Auto) 37 % (24-48) Monocytes (%) (Auto) 8 % (0-9) Eosinophils (%) (Auto) 8 % (0-3) H Basophils (%) (Auto) 2 % (0-3) Neutrophils # (Auto) 2.3 x10^3uL (1.8-7.7) Lymphocytes # (Auto) 1.8 x10^3/uL (1.0-4.8) Monocytes # (Auto) 0.4 x10^3/uL (0.0-1.1) Eosinophils # (Auto) 0.4 x10^3/uL (0.0-0.7) Basophils # (Auto) 0.1 x10^3/uL (0.0-0.2) Sodium Level 138 mmol/L (136-145) Potassium Level 4.0 mmol/L (3.5-5.1) Chloride Level 105 mmol/L (98-107) Carbon Dioxide Level 27 mmol/L (21-32) Anion Gap 6 (6-14) Blood Urea Nitrogen 7 mg/dL (8-26) L Creatinine 1.0 mg/dL (0.7-1.3) Estimated GFR (Cockcroft-Gault) 73.2 BUN/Creatinine Ratio 7 (6-20) Glucose Level 103 mg/dL (70-99) H Calcium Level 8.8 mg/dL (8.5-10.1) Total Bilirubin 0.5 mg/dL (0.2-1.0) Aspartate Amino Transferase (AST) 23 U/L (15-37) Alanine Aminotransferase (ALT) 12 U/L (16-63) L Alkaline Phosphatase 139 U/L (46-116) H Total Protein 6.6 g/dL (6.4-8.2) Albumin 2.4 g/dL (3.4-5.0) L Albumin/Globulin Ratio 0.6 (1.0-1.7) L Valproic Acid Level 26 mcg/mL (50-100) L Valproic Acid Last Dose Date 09/26/20 Valproic Acid Last Dose Time 1700 Glucose (Fingerstick) 102 mg/dL (70-99) H 133 mg/dL (70-99) H 123 mg/dL (70-99) H Test 09/27/20 19:11 Glucose (Fingerstick) 153 mg/dL (70-99) H Current Medications: I have reviewed the current psychotropics carefully including drug interactions. Risk benefit ratio favors no change other than as noted in my dictated progress note. Diagnosis: Problems: (1) Impulse control disorder, unspecified (2) Anxiety disorder, unspecified (3) Dementia, vascular, with depression (4) Dementia, vascular, with delusions (5) Dementia in Alzheimer's disease with depression (6) Dementia in Alzheimer's disease with delusions (7) Dementia of the Alzheimer's type with early onset with behavioral disturbance (8) Major neurocognitive disorder MAYURI ANDERSEN MD Sep 27, 2020 20:52
[2020-09-27] MEDS: MIRTAZAPINE 7.5 MG TABLET. PO SCH (20:54)
[2020-09-27] MEDS: OLANZapine 2.5 MG TABLET PO SCH (20:54)
--- NOTE | 2020-09-27 21:12 | PDOC ---
Exam Note: Richy Note: This note is a late entry for 09/26/2020 covers elements not covered in my initial note. Subjective: The patient was seen on telehealth rounds in the evening of 09/26/2020 with Heidi PERERA. Discussed with nursing staff, reviewed the chart. He slept 4 hours previous night. The patient has been irritable, cranky. Review of Systems: Ambulation impaired in wheelchair. No CV, , pulmonary, eye, ENT system symptoms on review. Reliability poor. Mental Status Exam: The patient is oriented to himself and situation. He is somewhat dismissive and I again addressed circumstances prompting admission. Denied any responsibility for this. Speech has some latency, at times somewhat pressured. Abstraction is fair. Computation is impaired. Language function intact. Attention span is short. Mood and affect remains somewhat labile, anxious. No suicidal or homicidal ideation. Laboratory Data: Reviewed. Impression: Major neurocognitive disorder Alzheimer vascular with delusion, depression, behavioral disturbance. Anxiety disorder unspecified. Impulse control disorder unspecified. Plan: We are still awaiting the valproic acid level labs on 09/27 and adjust Depakote thereafter. We may consider adding an atypical antipsychotic depending on how he does once the valproic acid level is therapeutic. Assessment: Vital Signs/I&O: Vital Signs Date Time Temp Pulse Resp B/P (MAP) Pulse Ox O2 Delivery O2 Flow Rate FiO2 09/27/20 20:54 81 124/70 09/27/20 15:38 98.0 20 99 09/24/20 05:57 Room Air I & O 09/26/20 09/26/20 09/27/20 15:00 23:00 07:00 Intake Total 560 ml 480 ml Balance 560 ml 480 ml Labs: Laboratory Tests Test 09/27/20 05:50 09/27/20 07:14 09/27/20 11:54 09/27/20 16:49 White Blood Count 5.0 x10^3/uL (4.0-11.0) Red Blood Count 4.87 x10^6/uL (4.30-5.70) Hemoglobin 11.5 g/dL (13.0-17.5) L Hematocrit 37.1 % (39.0-53.0) L Mean Corpuscular Volume 76 fL (79-100) L Mean Corpuscular Hemoglobin 24 pg (25-35) L Mean Corpuscular Hemoglobin Concent 31 g/dL (31-37) Red Cell Distribution Width 17.3 % (11.5-14.5) H Platelet Count 198 x10^3/uL (140-400) Neutrophils (%) (Auto) 46 % (31-73) Lymphocytes (%) (Auto) 37 % (24-48) Monocytes (%) (Auto) 8 % (0-9) Eosinophils (%) (Auto) 8 % (0-3) H Basophils (%) (Auto) 2 % (0-3) Neutrophils # (Auto) 2.3 x10^3uL (1.8-7.7) Lymphocytes # (Auto) 1.8 x10^3/uL (1.0-4.8) Monocytes # (Auto) 0.4 x10^3/uL (0.0-1.1) Eosinophils # (Auto) 0.4 x10^3/uL (0.0-0.7) Basophils # (Auto) 0.1 x10^3/uL (0.0-0.2) Sodium Level 138 mmol/L (136-145) Potassium Level 4.0 mmol/L (3.5-5.1) Chloride Level 105 mmol/L (98-107) Carbon Dioxide Level 27 mmol/L (21-32) Anion Gap 6 (6-14) Blood Urea Nitrogen 7 mg/dL (8-26) L Creatinine 1.0 mg/dL (0.7-1.3) Estimated GFR (Cockcroft-Gault) 73.2 BUN/Creatinine Ratio 7 (6-20) Glucose Level 103 mg/dL (70-99) H Calcium Level 8.8 mg/dL (8.5-10.1) Total Bilirubin 0.5 mg/dL (0.2-1.0) Aspartate Amino Transferase (AST) 23 U/L (15-37) Alanine Aminotransferase (ALT) 12 U/L (16-63) L Alkaline Phosphatase 139 U/L (46-116) H Total Protein 6.6 g/dL (6.4-8.2) Albumin 2.4 g/dL (3.4-5.0) L Albumin/Globulin Ratio 0.6 (1.0-1.7) L Valproic Acid Level 26 mcg/mL (50-100) L Valproic Acid Last Dose Date 09/26/20 Valproic Acid Last Dose Time 1700 Glucose (Fingerstick) 102 mg/dL (70-99) H 133 mg/dL (70-99) H 123 mg/dL (70-99) H Test 09/27/20 19:11 Glucose (Fingerstick) 153 mg/dL (70-99) H Current Medications: Meds: Current Medications Medications (Trade) Dose Ordered Sig/[place] Route PRN Reason Start Time Stop Time Status Last Admin Dose Admin Divalproex Sodium (Depakote Sprinkles) 250 mg 0900,1700 PO 09/27/20 21:00 09/27/20 20:54 I have reviewed the current psychotropics carefully including drug interactions. Risk benefit ratio favors no change other than as noted in my dictated progress note. Diagnosis: Problems: (1) Impulse control disorder, unspecified (2) Anxiety disorder, unspecified (3) Dementia, vascular, with depression (4) Dementia, vascular, with delusions (5) Dementia in Alzheimer's disease with depression (6) Dementia in Alzheimer's disease with delusions (7) Dementia of the Alzheimer's type with early onset with behavioral disturbance (8) Major neurocognitive disorder MAYURI ANDERSEN MD Sep 27, 2020 21:12
--- NOTE | 2020-09-27 21:32 | PDOC ---
Exam Note: Richy Note: Please also refer to the separate dictated note~for this date of service dictated separately.~Patient seen individually. Discussed the patient with Nursing staff reviewed the chart.~Reviewed interim history and current functioning. Reviewed vital signs,~Labs/ Radiology~and current medications noted below. Continue current treatment with the changes noted in the dictated addendum note Assessment: Vital Signs/I&O: Vital Signs Date Time Temp Pulse Resp B/P (MAP) Pulse Ox O2 Delivery O2 Flow Rate FiO2 09/27/20 20:54 81 124/70 09/27/20 15:38 98.0 20 99 09/24/20 05:57 Room Air I & O 09/26/20 09/26/20 09/27/20 15:00 23:00 07:00 Intake Total 560 ml 480 ml Balance 560 ml 480 ml Labs: Laboratory Tests Test 09/27/20 05:50 09/27/20 07:14 09/27/20 11:54 09/27/20 16:49 White Blood Count 5.0 x10^3/uL (4.0-11.0) Red Blood Count 4.87 x10^6/uL (4.30-5.70) Hemoglobin 11.5 g/dL (13.0-17.5) L Hematocrit 37.1 % (39.0-53.0) L Mean Corpuscular Volume 76 fL (79-100) L Mean Corpuscular Hemoglobin 24 pg (25-35) L Mean Corpuscular Hemoglobin Concent 31 g/dL (31-37) Red Cell Distribution Width 17.3 % (11.5-14.5) H Platelet Count 198 x10^3/uL (140-400) Neutrophils (%) (Auto) 46 % (31-73) Lymphocytes (%) (Auto) 37 % (24-48) Monocytes (%) (Auto) 8 % (0-9) Eosinophils (%) (Auto) 8 % (0-3) H Basophils (%) (Auto) 2 % (0-3) Neutrophils # (Auto) 2.3 x10^3uL (1.8-7.7) Lymphocytes # (Auto) 1.8 x10^3/uL (1.0-4.8) Monocytes # (Auto) 0.4 x10^3/uL (0.0-1.1) Eosinophils # (Auto) 0.4 x10^3/uL (0.0-0.7) Basophils # (Auto) 0.1 x10^3/uL (0.0-0.2) Sodium Level 138 mmol/L (136-145) Potassium Level 4.0 mmol/L (3.5-5.1) Chloride Level 105 mmol/L (98-107) Carbon Dioxide Level 27 mmol/L (21-32) Anion Gap 6 (6-14) Blood Urea Nitrogen 7 mg/dL (8-26) L Creatinine 1.0 mg/dL (0.7-1.3) Estimated GFR (Cockcroft-Gault) 73.2 BUN/Creatinine Ratio 7 (6-20) Glucose Level 103 mg/dL (70-99) H Calcium Level 8.8 mg/dL (8.5-10.1) Total Bilirubin 0.5 mg/dL (0.2-1.0) Aspartate Amino Transferase (AST) 23 U/L (15-37) Alanine Aminotransferase (ALT) 12 U/L (16-63) L Alkaline Phosphatase 139 U/L (46-116) H Total Protein 6.6 g/dL (6.4-8.2) Albumin 2.4 g/dL (3.4-5.0) L Albumin/Globulin Ratio 0.6 (1.0-1.7) L Valproic Acid Level 26 mcg/mL (50-100) L Valproic Acid Last Dose Date 09/26/20 Valproic Acid Last Dose Time 1700 Glucose (Fingerstick) 102 mg/dL (70-99) H 133 mg/dL (70-99) H 123 mg/dL (70-99) H Test 09/27/20 19:11 Glucose (Fingerstick) 153 mg/dL (70-99) H Current Medications: Meds: Current Medications Medications (Trade) Dose Ordered Sig/[place] Route PRN Reason Start Time Stop Time Status Last Admin Dose Admin Divalproex Sodium (Depakote Sprinkles) 250 mg 0900,1700 PO 09/27/20 21:00 09/27/20 20:54 I have reviewed the current psychotropics carefully including drug interactions. Risk benefit ratio favors no change other than as noted in my dictated progress note. Diagnosis: Problems: (1) Impulse control disorder, unspecified (2) Anxiety disorder, unspecified (3) Dementia, vascular, with depression (4) Dementia, vascular, with delusions (5) Dementia in Alzheimer's disease with depression (6) Dementia in Alzheimer's disease with delusions (7) Dementia of the Alzheimer's type with early onset with behavioral disturbance (8) Major neurocognitive disorder MAYURI ANDERSEN MD Sep 27, 2020 21:32
[2020-09-27] MEDS: MELATONIN 3 MG TABLET PO PRN (22:38)
[2020-09-28 06:07] VITALS: BP 107/68
--- NOTE | 2020-09-28 07:49 | PDOC ---
Exam Note: Richy Note: This note is a late entry for 09/27/2020 covers elements not covered in my initial note. Subjective: The patient was seen on telehealth rounds in the evening of 09/27/2020 with Heidi PERERA. Discussed with nursing staff, reviewed the chart. He slept 6-1/4 hours previous night. The patient has been somewhat irritable, cranky at times but perhaps a little less labile as compared to before. Review of Systems: Ambulation impaired in wheelchair. No CV, , pulmonary, eye, ENT system symptoms on review. Mental Status Exam: The patient is oriented to himself and situation. He is little more pleasant, cooperative, at times smiling but still dismissive of what prompted his admission. Speech has some latency, at times somewhat pressured. Abstraction is fair. Computation is impaired. Language function intact. Atten tion span is short. Mood and affect remains somewhat labile, anxious. No suicidal or homicidal ideation. Laboratory Data: Reviewed. Impression: Major neurocognitive disorder Alzheimer vascular with delusion, depression, behavioral disturbance. Anxiety disorder unspecified. Impulse control disorder unspecified. Plan: Valproic acid level is subtherapeutic at 26 on Depakote 125 mg twice a day. We will increase this to 250 mg twice a day. Check CBC, CMP, valproic acid level in 3 days. Adjust to reach therapeutic level. Continue rest of the psychotropics. Assessment: Vital Signs/I&O: Vital Signs Date Time Temp Pulse Resp B/P (MAP) Pulse Ox O2 Delivery O2 Flow Rate FiO2 09/28/20 06:07 98.0 92 18 107/68 (81) 97 Room Air I & O 09/27/20 09/27/20 09/28/20 15:00 23:00 07:00 Intake Total 960 ml 600 ml Balance 960 ml 600 ml Labs: Laboratory Tests Test 09/27/20 11:54 09/27/20 16:49 09/27/20 19:11 Glucose (Fingerstick) 133 mg/dL (70-99) H 123 mg/dL (70-99) H 153 mg/dL (70-99) H Current Medications: Meds: Current Medications Medications (Trade) Dose Ordered Sig/[place] Route PRN Reason Start Time Stop Time Status Last Admin Dose Admin Divalproex Sodium (Depakote Sprinkles) 250 mg 0900,1700 PO 09/27/20 21:00 09/27/20 20:54 I have reviewed the current psychotropics carefully including drug interactions. Risk benefit ratio favors no change other than as noted in my dictated progress note. Diagnosis: Problems: (1) Impulse control disorder, unspecified (2) Anxiety disorder, unspecified (3) Dementia, vascular, with depression (4) Dementia, vascular, with delusions (5) Dementia in Alzheimer's disease with depression (6) Dementia in Alzheimer's disease with delusions (7) Dementia of the Alzheimer's type with early onset with behavioral disturbance (8) Major neurocognitive disorder MAYURI ANDERSEN MD Sep 28, 2020 07:49
[2020-09-28] MEDS: INSULIN LISPRO 300 UNITS/3 ML VIAL. SQ SCH ×3 (08:00→17:00)
[2020-09-28] MEDS: METOPROLOL TART IMMED RELEASE 25 MG TABLET. PO SCH ×2 (09:00→19:54)
[2020-09-28] MEDS: DIVALPROEX 125 MG CAP.SPRINK PO SCH ×2 (09:21→17:26)
[2020-09-28] MEDS: POTASSIUM CHLORIDE 20 MEQ TABLET.ER. PO SCH (09:21)
[2020-09-28] MEDS: APIXABAN 5 MG TABLET. PO SCH ×2 (09:21→19:53)
[2020-09-28] MEDS: TAMSULOSIN 0.4 MG CAP.ER.24H. PO SCH (09:21)
[2020-09-28] MEDS: LACTOBACILLUS RHAMNOSUS GG 1 CAPSULE. PO SCH ×2 (09:21→19:52)
[2020-09-28] MEDS: ASPIRIN CHEWABLE 81 MG TABLET. PO SCH (09:21)
[2020-09-28] MEDS: FAMOTIDINE 20 MG TABLET PO SCH ×2 (09:21→19:53)
[2020-09-28] MEDS: amLODIPine BESYLATE 2.5 MG TABLET PO SCH (09:22)
[2020-09-28] MEDS: CHOLESTYRAMINE/ASPARTAME 4 GM PACKET PO SCH ×2 (09:23→19:54)
[2020-09-28 15:39] VITALS: BP 120/72
[2020-09-28] MEDS: MIRTAZAPINE 7.5 MG TABLET. PO SCH (19:52)
[2020-09-28] MEDS: OLANZapine 2.5 MG TABLET PO SCH (19:54)
--- NOTE | 2020-09-28 20:47 | PDOC ---
Exam Note: Richy Note: Please also refer to the separate dictated note~for this date of service dictated separately.~Patient seen individually. Discussed the patient with Nursing staff reviewed the chart.~Reviewed interim history and current functioning. Reviewed vital signs,~Labs/ Radiology~and current medications noted below. Continue current treatment with the changes noted in the dictated addendum note Assessment: Vital Signs/I&O: Vital Signs Date Time Temp Pulse Resp B/P (MAP) Pulse Ox O2 Delivery O2 Flow Rate FiO2 09/28/20 19:54 106 120/72 09/28/20 15:39 98.1 16 97 09/28/20 06:07 Room Air I & O 09/27/20 09/27/20 09/28/20 15:00 23:00 07:00 Intake Total 960 ml 600 ml Balance 960 ml 600 ml Labs: Laboratory Tests Test 09/28/20 07:46 09/28/20 11:44 09/28/20 17:02 09/28/20 19:25 Glucose (Fingerstick) 103 mg/dL (70-99) H 144 mg/dL (70-99) H 105 mg/dL (70-99) H 117 mg/dL (70-99) H Current Medications: Meds: Current Medications Medications (Trade) Dose Ordered Sig/[place] Route PRN Reason Start Time Stop Time Status Last Admin Dose Admin Divalproex Sodium (Depakote Sprinkles) 250 mg 0900,1700 PO 09/27/20 21:00 09/28/20 17:26 I have reviewed the current psychotropics carefully including drug interactions. Risk benefit ratio favors no change other than as noted in my dictated progress note. Diagnosis: Problems: (1) Impulse control disorder, unspecified (2) Anxiety disorder, unspecified (3) Dementia, vascular, with depression (4) Dementia, vascular, with delusions (5) Dementia in Alzheimer's disease with depression (6) Dementia in Alzheimer's disease with delusions (7) Dementia of the Alzheimer's type with early onset with behavioral disturbance (8) Major neurocognitive disorder MAYURI ANDERSEN MD Sep 28, 2020 20:47
[2020-09-29 06:26] VITALS: BP 145/72
[2020-09-29] MEDS: INSULIN LISPRO 300 UNITS/3 ML VIAL. SQ SCH ×3 (08:00→16:57)
[2020-09-29] MEDS: DIVALPROEX 125 MG CAP.SPRINK PO SCH ×2 (08:30→17:07)
[2020-09-29] MEDS: POTASSIUM CHLORIDE 20 MEQ TABLET.ER. PO SCH (08:30)
[2020-09-29] MEDS: amLODIPine BESYLATE 2.5 MG TABLET PO SCH (08:30)
[2020-09-29] MEDS: APIXABAN 5 MG TABLET. PO SCH ×2 (08:30→20:15)
[2020-09-29] MEDS: FAMOTIDINE 20 MG TABLET PO SCH ×2 (08:30→20:14)
[2020-09-29] MEDS: TAMSULOSIN 0.4 MG CAP.ER.24H. PO SCH (08:30)
[2020-09-29] MEDS: ASPIRIN CHEWABLE 81 MG TABLET. PO SCH (08:31)
[2020-09-29] MEDS: LACTOBACILLUS RHAMNOSUS GG 1 CAPSULE. PO SCH ×2 (08:31→20:14)
[2020-09-29] MEDS: CHOLESTYRAMINE/ASPARTAME 4 GM PACKET PO SCH ×2 (08:31→20:15)
[2020-09-29] MEDS: METOPROLOL TART IMMED RELEASE 25 MG TABLET. PO SCH ×2 (08:31→20:13)
[2020-09-29 16:41] VITALS: BP 102/66
[2020-09-29] MEDS: traMADol 50 MG TABLET PO PRN (18:42)
[2020-09-29] MEDS: MIRTAZAPINE 7.5 MG TABLET. PO SCH (20:15)
[2020-09-29] MEDS: OLANZapine 2.5 MG TABLET PO SCH (20:15)
--- NOTE | 2020-09-29 20:57 | PDOC ---
Exam Note: Richy Note: This note is a late entry for 09/28/2020 covers elements not covered in my initial note. Subjective: The patient was seen on telehealth rounds in the evening of 09/28/2020 with Delilah PERERA as the unit is on a lockdown by the [facility] because there were 2 patients who turned out positive for COVID-19 and no admission or discharges can be done for next 2 weeks due to the quarantine requirements. Discussed with nursing staff, reviewed the chart. He slept 3-1/4 hours previous night. Previous evening the patient received melatonin for his sleep but still did not sleep very well, [facility]. During the day on 09/28, he is pleasant at times, irritable at other times, wanting to call his , gets a little labile in his mood and we addressed this. Review of Systems: Ambulation impaired in wheelchair. No CV, , pulmonary, eye, ENT system symptoms on review. Mental Status Exam: The patient is oriented to himself and situation. He is less impulsive and less hyperverbal as compared to earlier and his hospitali zation. He is tolerating the increased Depakote. Speech has some latency, at times somewhat pressured. Abstraction is fair. Computation is impaired. Language function intact. Attention span is short. Mood and affect remains somewhat labile, anxious. No suicidal or homicidal ideation. Laboratory Data: Reviewed. Impression: Major neurocognitive disorder Alzheimer vascular with delusion, depression, behavioral disturbance. Anxiety disorder unspecified. Impulse control disorder unspecified. Plan: We have increased the Depakote. We will repeat labs level after 3 days of 250 mg b.i.d. Adjust gradually to reach therapeutic level. Assessment: Vital Signs/I&O: Vital Signs Date Time Temp Pulse Resp B/P (MAP) Pulse Ox O2 Delivery O2 Flow Rate FiO2 09/29/20 20:13 84 102/66 09/29/20 18:42 20 Room Air 09/29/20 16:41 97.3 98 I & O 09/28/20 09/28/20 09/29/20 15:00 23:00 07:00 Intake Total 240 ml 360 ml Balance 240 ml 360 ml Labs: Laboratory Tests Test 09/29/20 12:01 09/29/20 16:56 09/29/20 19:18 Glucose (Fingerstick) 145 mg/dL (70-99) H 116 mg/dL (70-99) H 161 mg/dL (70-99) H Current Medications: I have reviewed the current psychotropics carefully including drug interactions. Risk benefit ratio favors no change other than as noted in my dictated progress note. Diagnosis: Problems: (1) Impulse control disorder, unspecified (2) Anxiety disorder, unspecified (3) Dementia, vascular, with depression (4) Dementia, vascular, with delusions (5) Dementia in Alzheimer's disease with depression (6) Dementia in Alzheimer's disease with delusions (7) Dementia of the Alzheimer's type with early onset with behavioral disturbance (8) Major neurocognitive disorder MAYURI ANDERSEN MD Sep 29, 2020 20:57
--- NOTE | 2020-09-29 21:09 | PDOC ---
Exam Note: Richy Note: Please also refer to the separate dictated note~for this date of service dictated separately.~Patient seen individually. Discussed the patient with Nursing staff reviewed the chart.~Reviewed interim history and current functioning. Reviewed vital signs,~Labs/ Radiology~and current medications noted below. Continue current treatment with the changes noted in the dictated addendum note Assessment: Vital Signs/I&O: Vital Signs Date Time Temp Pulse Resp B/P (MAP) Pulse Ox O2 Delivery O2 Flow Rate FiO2 09/29/20 20:13 84 102/66 09/29/20 18:42 20 Room Air 09/29/20 16:41 97.3 98 I & O 09/28/20 09/28/20 09/29/20 15:00 23:00 07:00 Intake Total 240 ml 360 ml Balance 240 ml 360 ml Labs: Laboratory Tests Test 09/29/20 12:01 09/29/20 16:56 09/29/20 19:18 Glucose (Fingerstick) 145 mg/dL (70-99) H 116 mg/dL (70-99) H 161 mg/dL (70-99) H Current Medications: I have reviewed the current psychotropics carefully including drug interactions. Risk benefit ratio favors no change other than as noted in my dictated progress note. Diagnosis: Problems: (1) Impulse control disorder, unspecified (2) Anxiety disorder, unspecified (3) Dementia, vascular, with depression (4) Dementia, vascular, with delusions (5) Dementia in Alzheimer's disease with depression (6) Dementia in Alzheimer's disease with delusions (7) Dementia of the Alzheimer's type with early onset with behavioral disturbance (8) Major neurocognitive disorder MAYURI ANDERSEN MD Sep 29, 2020 21:09
[2020-09-30 06:19] VITALS: BP 113/66
[2020-09-30] MEDS: amLODIPine BESYLATE 2.5 MG TABLET PO SCH (07:24)
[2020-09-30] MEDS: CHOLESTYRAMINE/ASPARTAME 4 GM PACKET PO SCH ×2 (07:24→19:45)
[2020-09-30] MEDS: ASPIRIN CHEWABLE 81 MG TABLET. PO SCH (07:24)
[2020-09-30] MEDS: LACTOBACILLUS RHAMNOSUS GG 1 CAPSULE. PO SCH ×2 (07:24→19:46)
[2020-09-30] MEDS: POTASSIUM CHLORIDE 20 MEQ TABLET.ER. PO SCH (07:25)
[2020-09-30] MEDS: METOPROLOL TART IMMED RELEASE 25 MG TABLET. PO SCH ×2 (07:25→19:47)
[2020-09-30] MEDS: FAMOTIDINE 20 MG TABLET PO SCH ×2 (07:25→19:46)
[2020-09-30] MEDS: TAMSULOSIN 0.4 MG CAP.ER.24H. PO SCH (07:25)
[2020-09-30] MEDS: APIXABAN 5 MG TABLET. PO SCH ×2 (07:25→19:46)
[2020-09-30] MEDS: DIVALPROEX 125 MG CAP.SPRINK PO SCH ×2 (07:25→17:00)
[2020-09-30] MEDS: INSULIN LISPRO 300 UNITS/3 ML VIAL. SQ SCH ×3 (08:00→17:00)
[2020-09-30 15:57] VITALS: BP 90/57
[2020-09-30] MEDS: MIRTAZAPINE 7.5 MG TABLET. PO SCH (19:46)
[2020-09-30] MEDS: OLANZapine 2.5 MG TABLET PO SCH (19:47)
--- NOTE | 2020-10-01 00:23 | PDOC ---
Exam Note: Richy Note: This is a late entry for 09/30/2020. Please also refer to the separate dictated note~for this date of service dictated separately.~Patient seen individually. Discussed the patient with Nursing staff reviewed the chart.~Reviewed interim history and current functioning. Reviewed vital signs,~Labs/ Radiology~and cur rent medications noted below. Continue current treatment with the changes noted in the dictated addendum note Assessment: Vital Signs/I&O: Vital Signs Date Time Temp Pulse Resp B/P (MAP) Pulse Ox O2 Delivery O2 Flow Rate FiO2 09/30/20 19:47 93 90/57 09/30/20 15:57 97.3 18 99 09/30/20 06:19 Room Air I & O 09/30/20 09/30/20 10/01/20 15:00 23:00 07:00 Intake Total 480 ml 480 ml Balance 480 ml 480 ml Labs: Laboratory Tests Test 09/30/20 08:08 09/30/20 11:52 09/30/20 17:15 09/30/20 19:39 Glucose (Fingerstick) 116 mg/dL (70-99) H 164 mg/dL (70-99) H 121 mg/dL (70-99) H 100 mg/dL (70-99) H Current Medications: I have reviewed the current psychotropics carefully including drug interactions. Risk benefit ratio favors no change other than as noted in my dictated progress note. Diagnosis: Problems: (1) Impulse control disorder, unspecified (2) Anxiety disorder, unspecified (3) Dementia, vascular, with depression (4) Dementia, vascular, with delusions (5) Dementia in Alzheimer's disease with depression (6) Dementia in Alzheimer's disease with delusions (7) Dementia of the Alzheimer's type with early onset with behavioral disturbance (8) Major neurocognitive disorder MAYURI ANDERSEN MD Oct 01, 2020 00:23
[2020-10-01 05:57] VITALS: BP 148/79
[2020-10-01 06:19] LABS: BASO # 0.1 x10^3/uL (0.0-0.2); BASO % 1 % (0-3); EOS # 0.4 x10^3/uL (0.0-0.7); EOS % 8 % (0-3); HEMATOCRIT 38.5 % (39.0-53.0); HEMOGLOBIN 12.1 g/dL (13.0-17.5); LYMPH # 1.7 x10^3/uL (1.0-4.8); LYMPH % 28 % (24-48); MEAN CORPUSCULAR HEMOGLOBIN 24 pg (25-35); MEAN CORPUSCULAR HGB CONC 32 g/dL (31-37); MEAN CORPUSCULAR VOLUME 76 fL (79-100); MONO # 0.4 x10^3/uL (0.0-1.1); MONO % 7 % (0-9); NEUT # 3.4 x10^3uL (1.8-7.7); NEUT % 56 % (31-73); PLATELET COUNT 200 x10^3/uL (140-400); RED BLOOD COUNT 5.04 x10^6/uL (4.30-5.70); RED CELL DISTRIBUTION WIDTH 17.3 % (11.5-14.5)
[2020-10-01 06:44] LABS: ALBUMIN 2.7 g/dL (3.4-5.0); ALBUMIN/GLOBULIN RATIO 0.6 (1.0-1.7); ALK PHOS 154 U/L (46-116); ALT (SGPT) 16 U/L (16-63); ANION GAP 8 (6-14); AST (SGOT) 25 U/L (15-37); BLOOD UREA NITROGEN 12 mg/dL (8-26); BUN/CREATININE RATIO 11 (6-20); CALCIUM 8.9 mg/dL (8.5-10.1); CARBON DIOXIDE 26 mmol/L (21-32); CHLORIDE 104 mmol/L (98-107); CREATININE 1.1 mg/dL (0.7-1.3); GFR 65.6; GLUCOSE 106 mg/dL (70-99); POTASSIUM 4.5 mmol/L (3.5-5.1); SODIUM 138 mmol/L (136-145); TOTAL BILIRUBIN 0.4 mg/dL (0.2-1.0)
[2020-10-01 06:45] LABS: VAL ACID 40 mcg/mL (50-100)
[2020-10-01] MEDS: FAMOTIDINE 20 MG TABLET PO SCH ×2 (07:59→20:55)
[2020-10-01] MEDS: CHOLESTYRAMINE/ASPARTAME 4 GM PACKET PO SCH ×2 (07:59→20:54)
[2020-10-01] MEDS: APIXABAN 5 MG TABLET. PO SCH ×2 (08:00→20:55)
[2020-10-01] MEDS: TAMSULOSIN 0.4 MG CAP.ER.24H. PO SCH (08:00)
[2020-10-01] MEDS: amLODIPine BESYLATE 2.5 MG TABLET PO SCH (08:00)
[2020-10-01] MEDS: INSULIN LISPRO 300 UNITS/3 ML VIAL. SQ SCH ×3 (08:00→17:14)
[2020-10-01] MEDS: METOPROLOL TART IMMED RELEASE 25 MG TABLET. PO SCH ×2 (08:00→20:55)
[2020-10-01] MEDS: POTASSIUM CHLORIDE 20 MEQ TABLET.ER. PO SCH (08:00)
[2020-10-01] MEDS: ASPIRIN CHEWABLE 81 MG TABLET. PO SCH (08:00)
[2020-10-01] MEDS: DIVALPROEX 125 MG CAP.SPRINK PO SCH ×2 (08:01→17:10)
[2020-10-01] MEDS: LACTOBACILLUS RHAMNOSUS GG 1 CAPSULE. PO SCH ×2 (08:01→20:55)
[2020-10-01] MEDS: CHOLECALCIFEROL (VITAMIN D3) 50,000 UNIT CAPSULE PO SCH (08:02)
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
[2020-10-01 14:26] VITALS: BP 113/68
--- NOTE | 2020-10-01 20:50 | PDOC ---
Exam Note: Richy Note: Please also refer to the separate dictated note~for this date of service dictated separately.~Patient seen individually. Discussed the patient with Nursing staff reviewed the chart.~Reviewed interim history and current functioning. Reviewed vital signs,~Labs/ Radiology~and current medications noted below. Continue current treatment with the changes noted in the dictated addendum note Assessment: Vital Signs/I&O: Vital Signs Date Time Temp Pulse Resp B/P (MAP) Pulse Ox O2 Delivery O2 Flow Rate FiO2 10/01/20 14:26 98.3 90 18 113/68 (83) 97 09/30/20 06:19 Room Air I & O 09/30/20 09/30/20 10/01/20 15:00 23:00 07:00 Intake Total 480 ml 480 ml Balance 480 ml 480 ml Labs: Laboratory Tests Test 10/01/20 06:05 10/01/20 07:46 10/01/20 12:04 10/01/20 17:05 White Blood Count 6.0 x10^3/uL (4.0-11.0) Red Blood Count 5.04 x10^6/uL (4.30-5.70) Hemoglobin 12.1 g/dL (13.0-17.5) L Hematocrit 38.5 % (39.0-53.0) L Mean Corpuscular Volume 76 fL (79-100) L Mean Corpuscular Hemoglobin 24 pg (25-35) L Mean Corpuscular Hemoglobin Concent 32 g/dL (31-37) Red Cell Distribution Width 17.3 % (11.5-14.5) H Platelet Count 200 x10^3/uL (140-400) Neutrophils (%) (Auto) 56 % (31-73) Lymphocytes (%) (Auto) 28 % (24-48) Monocytes (%) (Auto) 7 % (0-9) Eosinophils (%) (Auto) 8 % (0-3) H Basophils (%) (Auto) 1 % (0-3) Neutrophils # (Auto) 3.4 x10^3uL (1.8-7.7) Lymphocytes # (Auto) 1.7 x10^3/uL (1.0-4.8) Monocytes # (Auto) 0.4 x10^3/uL (0.0-1.1) Eosinophils # (Auto) 0.4 x10^3/uL (0.0-0.7) Basophils # (Auto) 0.1 x10^3/uL (0.0-0.2) Sodium Level 138 mmol/L (136-145) Potassium Level 4.5 mmol/L (3.5-5.1) Chloride Level 104 mmol/L (98-107) Carbon Dioxide Level 26 mmol/L (21-32) Anion Gap 8 (6-14) Blood Urea Nitrogen 12 mg/dL (8-26) Creatinine 1.1 mg/dL (0.7-1.3) Estimated GFR (Cockcroft-Gault) 65.6 BUN/Creatinine Ratio 11 (6-20) Glucose Level 106 mg/dL (70-99) H Calcium Level 8.9 mg/dL (8.5-10.1) Total Bilirubin 0.4 mg/dL (0.2-1.0) Aspartate Amino Transferase (AST) 25 U/L (15-37) Alanine Aminotransferase (ALT) 16 U/L (16-63) Alkaline Phosphatase 154 U/L (46-116) H Total Protein 7.0 g/dL (6.4-8.2) Albumin 2.7 g/dL (3.4-5.0) L Albumin/Globulin Ratio 0.6 (1.0-1.7) L Valproic Acid Level 40 mcg/mL (50-100) L Valproic Acid Last Dose Date 09/30/20 Valproic Acid Last Dose Time 1700 Glucose (Fingerstick) 118 mg/dL (70-99) H 106 mg/dL (70-99) H 158 mg/dL (70-99) H Test 10/01/20 19:17 Glucose (Fingerstick) 82 mg/dL (70-99) Current Medications: Meds: Current Medications Medications (Trade) Dose Ordered Sig/[place] Route PRN Reason Start Time Stop Time Status Last Admin Dose Admin Divalproex Sodium (Depakote Sprinkles) 500 mg 1700 PO 10/01/20 17:00 10/01/20 17:10 I have reviewed the current psychotropics carefully including drug interactions. Risk benefit ratio favors no change other than as noted in my dictated progress note. Diagnosis: Problems: (1) Impulse control disorder, unspecified (2) Anxiety disorder, unspecified (3) Dementia, vascular, with depression (4) Dementia, vascular, with delusions (5) Dementia in Alzheimer's disease with depression (6) Dementia in Alzheimer's disease with delusions (7) Dementia of the Alzheimer's type with early onset with behavioral disturbance (8) Major neurocognitive disorder MAYURI ANDERSEN MD Oct 01, 2020 20:50
[2020-10-01] MEDS: MIRTAZAPINE 7.5 MG TABLET. PO SCH (20:55)
[2020-10-01] MEDS: OLANZapine 2.5 MG TABLET PO SCH (20:55)
[2020-10-02] MEDS: MELATONIN 3 MG TABLET PO PRN (00:10)
[2020-10-02] MEDS: traMADol 50 MG TABLET PO PRN (00:10)
[2020-10-02 05:28] VITALS: BP 123/76
[2020-10-02] MEDS: INSULIN LISPRO 300 UNITS/3 ML VIAL. SQ SCH ×3 (08:00→17:00)
[2020-10-02] MEDS: CHOLESTYRAMINE/ASPARTAME 4 GM PACKET PO SCH ×2 (08:17→20:01)
[2020-10-02] MEDS: FAMOTIDINE 20 MG TABLET PO SCH ×2 (08:18→20:01)
[2020-10-02] MEDS: APIXABAN 5 MG TABLET. PO SCH ×2 (08:18→20:02)
[2020-10-02] MEDS: ASPIRIN CHEWABLE 81 MG TABLET. PO SCH (08:18)
[2020-10-02] MEDS: POTASSIUM CHLORIDE 20 MEQ TABLET.ER. PO SCH (08:18)
[2020-10-02] MEDS: LACTOBACILLUS RHAMNOSUS GG 1 CAPSULE. PO SCH ×2 (08:18→20:01)
[2020-10-02] MEDS: METOPROLOL TART IMMED RELEASE 25 MG TABLET. PO SCH ×2 (08:19→20:02)
[2020-10-02] MEDS: amLODIPine BESYLATE 2.5 MG TABLET PO SCH (08:19)
[2020-10-02] MEDS: TAMSULOSIN 0.4 MG CAP.ER.24H. PO SCH (08:19)
[2020-10-02] MEDS: DIVALPROEX 125 MG CAP.SPRINK PO SCH ×2 (08:21→17:24)
--- NOTE | 2020-10-02 08:37 | PDOC ---
Exam Note: Richy Note: This note is a late entry for 09/29/2020 covers elements not covered in my initial note. Subjective: The patient was seen on telehealth rounds in the evening of 09/29/2020 with Cristi PERERA as the unit is on a lockdown by the [facility] because of COVID-19 exposure on the unit and no admission or discharges can be done for next 2 weeks due to the quarantine requirements. Discussed with nursing staff, reviewed the chart. He slept 6-1/4 hours previous night. No behaviors noted. He gets a little anxious, grandiose but does redirect. Appetite is fair. No p.r.n.s. have been given. Review of Systems: Ambulation impaired in wheelchair. No CV, , pulmonary, eye, ENT system symptoms on review. Mental Status Exam: The patient is oriented to himself and situation. Speech pressured at times. Abstraction is fair. Computation is impaired. Language function intact. Attention span is short. Mood and affect remains somewhat labile, anxious. No suicidal or homicidal ideation. Laboratory Data: Reviewed. Impression: Major neurocognitive disorder Alzheimer vascular with delusion, depression, behavioral disturbance. Anxiety disorder unspecified. Impulse control disorder unspecified. Plan: No change from initial note. Assessment: Vital Signs/I&O: Vital Signs Date Time Temp Pulse Resp B/P (MAP) Pulse Ox O2 Delivery O2 Flow Rate FiO2 10/02/20 08:19 74 123/76 10/02/20 05:28 97.6 18 97 10/02/20 01:15 Room Air I & O 10/01/20 10/01/20 10/02/20 15:00 23:00 07:00 Intake Total 600 ml 480 ml Balance 600 ml 480 ml Labs: Laboratory Tests Test 10/01/20 12:04 10/01/20 17:05 10/01/20 19:17 10/02/20 07:39 Glucose (Fingerstick) 106 mg/dL (70-99) H 158 mg/dL (70-99) H 82 mg/dL (70-99) 113 mg/dL (70-99) H Current Medications: Meds: Current Medications Medications (Trade) Dose Ordered Sig/[place] Route PRN Reason Start Time Stop Time Status Last Admin Dose Admin Divalproex Sodium (Depakote Sprinkles) 250 mg 0900 PO 10/02/20 09:00 10/02/20 08:21 Divalproex Sodium (Depakote Sprinkles) 500 mg 1700 PO 10/01/20 17:00 10/01/20 17:10 I have reviewed the current psychotropics carefully including drug interactions. Risk benefit ratio favors no change other than as noted in my dictated progress note. Diagnosis: Problems: (1) Impulse control disorder, unspecified (2) Anxiety disorder, unspecified (3) Dementia, vascular, with depression (4) Dementia, vascular, with delusions (5) Dementia in Alzheimer's disease with depression (6) Dementia in Alzheimer's disease with delusions (7) Dementia of the Alzheimer's type with early onset with behavioral distu rbance (8) Major neurocognitive disorder MAYURI ANDERSEN MD Oct 02, 2020 08:37
--- NOTE | 2020-10-02 08:55 | PDOC ---
Exam Note: Richy Note: This note is a late entry for 09/30/2020 covers elements not covered in my initial note. Subjective: The patient was seen on telehealth rounds in the evening of 09/30/2020 with Cristi PERERA as the unit is on a lockdown by the [facility] because of COVID-19 exposure on the unit and no admission or discharges can be done for next 2 weeks due to the quarantine requirements. Discussed with nursing staff, reviewed the chart. He slept 4 hours previous night. The patient has been agitated with the nursing staff. He was going around the unit with his telephone loud and giving a running commentary to his family about the happenings on the unit. Review of Systems: Ambulation impaired in wheelchair. No CV, , pulmonary, eye, ENT system symptoms on review. Mental Status Exam: The patient is oriented to himself and situation. Speech has some latency, coherent. Abstraction is fair. Computation is impaired. Language function intact. Attention span is short. Mood and affect remains labile, anxious. No suicidal or homicidal ideation. Laboratory Data: Reviewed. Impression: Major neurocognitive disorder Alzheimer vascular with delusion, depression, behavioral disturbance. Anxiety disorder unspecified. Impulse control disorder unspecified. Plan: No change from initial note. Assessment: Vital Signs/I&O: Vital Signs Date Time Temp Pulse Resp B/P (MAP) Pulse Ox O2 Delivery O2 Flow Rate FiO2 10/02/20 08:19 74 123/76 10/02/20 05:28 97.6 18 97 10/02/20 01:15 Room Air l I & O 10/01/20 10/01/20 10/02/20 14:59 22:59 06:59 Intake Total 600 ml 480 ml Balance 600 ml 480 ml Labs: Laboratory Tests Test 10/01/20 12:04 10/01/20 17:05 10/01/20 19:17 10/02/20 07:39 Glucose (Fingerstick) 106 mg/dL (70-99) H 158 mg/dL (70-99) H 82 mg/dL (70-99) 113 mg/dL (70-99) H Current Medications: Meds: Current Medications Medications (Trade) Dose Ordered Sig/[place] Route PRN Reason Start Time Stop Time Status Last Admin Dose Admin Divalproex Sodium (Depakote Sprinkles) 250 mg 0900 PO 10/02/20 09:00 10/02/20 08:21 Divalproex Sodium (Depakote Sprinkles) 500 mg 1700 PO 10/01/20 17:00 10/01/20 17:10 I have reviewed the current psychotropics carefully including drug interactions. Risk benefit ratio favors no change other than as noted in my dictated progress note. Diagnosis: Problems: (1) Impulse control disorder, unspecified (2) Anxiety disorder, unspecified (3) Dementia, vascular, with depression (4) Dementia, vascular, with delusions (5) Dementia in Alzheimer's disease with depression (6) Dementia in Alzheimer's disease with delusions (7) Dementia of the Alzheimer's type with early onset with behavioral disturbance (8) Major neurocognitive disorder MAYURI ANDERSEN MD Oct 02, 2020 08:55
--- NOTE | 2020-10-02 09:09 | PDOC ---
Exam Note: Richy Note: This note is a late entry for 10/01/2020 covers elements not covered in my initial note. Subjective: The patient was seen on telehealth rounds in the morning of 10/01/2020 for treatment team meeting with Arlene Diana, community mental health social worker, Sherley, activity therapy and Delilah PERERA as the unit is on a lockdown by the [facility] of COVID-19 exposure on the unit and no admission or discharges can be done for next 2 weeks due to the quarantine requirements. Discussed with nursing staff, reviewed the chart. He slept 3 hours previous night. Sleeping average 6 hours. Appetite is 75%. He has made telephone calls to his , has had a good day today as compared to the we ekend. Review of Systems: Ambulation impaired in wheelchair. No CV, , pulmonary, eye, ENT system symptoms on review. Mental Status Exam: The patient is oriented to himself and situation. Speech has some latency, coherent. Abstraction is fair. Computation is impaired. Language function intact. Attention span is short. Mood and affect remains labile, anxious. No suicidal or homicidal ideation. Laboratory Data: Reviewed. Impression: Major neurocognitive disorder Alzheimer vascular with delusion, depression, behavioral disturbance. Anxiety disorder unspecified. Impulse control disorder unspecified. Plan: No change from initial note. Valproic acid level is 40 subtherapeutic and we will increase the Depakote to 250 a.m. and 500 mg h.s. Check CBC, CMP, valproic acid level, ammonia level in 3 days. Assessment: Vital Signs/I&O: Vital Signs Date Time Temp Pulse Resp B/P (MAP) Pulse Ox O2 Delivery O2 Flow Rate FiO2 10/02/20 08:19 74 123/76 10/02/20 05:28 97.6 18 97 10/02/20 01:15 Room Air I & O 10/01/20 10/01/20 10/02/20 15:00 23:00 07:00 Intake Total 600 ml 480 ml Balance 600 ml 480 ml Labs: Laboratory Tests Test 10/01/20 12:04 10/01/20 17:05 10/01/20 19:17 10/02/20 07:39 Glucose (Fingerstick) 106 mg/dL (70-99) H 158 mg/dL (70-99) H 82 mg/dL (70-99) 113 mg/dL (70-99) H Current Medications: Meds: Current Medications Medications (Trade) Dose Ordered Sig/[place] Route PRN Reason Start Time Stop Time Status Last Admin Dose Admin Divalproex Sodium (Depakote Sprinkles) 250 mg 0900 PO 10/02/20 09:00 10/02/20 08:21 Divalproex Sodium (Depakote Sprinkles) 500 mg 1700 PO 10/01/20 17:00 10/01/20 17:10 I have reviewed the current psychotropics carefully including drug interactions. Risk benefit ratio favors no change other than as noted in my dictated progress note. Diagnosis: Problems: (1) Impulse control disorder, unspecified (2) Anxiety disorder, unspecified (3) Dementia, vascular, with depression (4) Dementia, vascular, with delusions (5) Dementia in Alzheimer's disease with depression (6) Dementia in Alzheimer's disease with delusions (7) Dementia of the Alzheimer's type with early onset with behavioral disturbance (8) Major neurocognitive disorder MAYURI ANDERSEN MD Oct 02, 2020 09:09
[2020-10-02 15:41] VITALS: BP 101/62
[2020-10-02] MEDS: MIRTAZAPINE 7.5 MG TABLET. PO SCH (20:01)
[2020-10-02] MEDS: OLANZapine 2.5 MG TABLET PO SCH (20:02)
--- NOTE | 2020-10-02 21:01 | PDOC ---
Exam Note: Richy Note: Please also refer to the separate dictated note~for this date of service dictated separately.~Patient seen individually. Discussed the patient with Nursing staff reviewed the chart.~Reviewed interim history and current functioning. Reviewed vital signs,~Labs/ Radiology~and current medications noted below. Continue current treatment with the changes noted in the dictated addendum note Assessment: Vital Signs/I&O: Vital Signs Date Time Temp Pulse Resp B/P (MAP) Pulse Ox O2 Delivery O2 Flow Rate FiO2 10/02/20 20:02 76 101/62 10/02/20 15:41 97.6 16 99 10/02/20 01:15 Room Air I & O 10/01/20 10/01/20 10/02/20 15:00 23:00 07:00 Intake Total 600 ml 480 ml Balance 600 ml 480 ml Labs: Laboratory Tests Test 10/02/20 07:39 10/02/20 11:48 10/02/20 16:58 10/02/20 19:04 Glucose (Fingerstick) 113 mg/dL (70-99) H 88 mg/dL (70-99) 131 mg/dL (70-99) H 180 mg/dL (70-99) H Current Medications: Meds: Current Medications Medications (Trade) Dose Ordered Sig/[place] Route PRN Reason Start Time Stop Time Status Last Admin Dose Admin Divalproex Sodium (Depakote Sprinkles) 250 mg 0900 PO 10/02/20 09:00 10/02/20 08:21 I have reviewed the current psychotropics carefully including drug interactions. Risk benefit ratio favors no change other than as noted in my dictated progress note. Diagnosis: Problems: (1) Impulse control disorder, unspecified (2) Anxiety disorder, unspecified (3) Dementia, vascular, with depression (4) Dementia, vascular, with delusions (5) Dementia in Alzheimer's disease with depression (6) Dementia in Alzheimer's disease with delusions (7) Dementia of the Alzheimer's type with early onset with behavioral disturbance (8) Major neurocognitive disorder MAYURI ANDERSEN MD Oct 02, 2020 21:01
[2020-10-03 06:16] VITALS: BP 100/66
[2020-10-03] MEDS: INSULIN LISPRO 300 UNITS/3 ML VIAL. SQ SCH ×3 (08:00→17:11)
[2020-10-03] MEDS: CHOLESTYRAMINE/ASPARTAME 4 GM PACKET PO SCH ×2 (08:17→19:53)
[2020-10-03] MEDS: FAMOTIDINE 20 MG TABLET PO SCH ×2 (08:18→19:53)
[2020-10-03] MEDS: TAMSULOSIN 0.4 MG CAP.ER.24H. PO SCH (08:18)
[2020-10-03] MEDS: amLODIPine BESYLATE 2.5 MG TABLET PO SCH (08:18)
[2020-10-03] MEDS: ASPIRIN CHEWABLE 81 MG TABLET. PO SCH (08:18)
[2020-10-03] MEDS: DIVALPROEX 125 MG CAP.SPRINK PO SCH ×2 (08:18→17:10)
[2020-10-03] MEDS: LACTOBACILLUS RHAMNOSUS GG 1 CAPSULE. PO SCH ×2 (08:19→19:53)
[2020-10-03] MEDS: POTASSIUM CHLORIDE 20 MEQ TABLET.ER. PO SCH (08:19)
[2020-10-03] MEDS: APIXABAN 5 MG TABLET. PO SCH ×2 (08:19→19:53)
[2020-10-03] MEDS: METOPROLOL TART IMMED RELEASE 25 MG TABLET. PO SCH ×2 (08:20→19:53)
[2020-10-03 15:07] VITALS: BP 97/65
[2020-10-03 19:52] VITALS: BP 106/72
[2020-10-03] MEDS: MELATONIN 3 MG TABLET PO PRN (19:53)
[2020-10-03] MEDS: MIRTAZAPINE 7.5 MG TABLET. PO SCH (19:53)
[2020-10-03] MEDS: OLANZapine 2.5 MG TABLET PO SCH (19:53)
--- NOTE | 2020-10-03 20:46 | PDOC ---
Exam Note: Richy Note: Please also refer to the separate dictated note~for this date of service dictated separately.~Patient seen individually. Discussed the patient with Nursing staff reviewed the chart.~Reviewed interim history and current functioning. Reviewed vital signs,~Labs/ Radiology~and current medications noted below. Continue current treatment with the changes noted in the dictated addendum note Assessment: Vital Signs/I&O: Vital Signs Date Time Temp Pulse Resp B/P (MAP) Pulse Ox O2 Delivery O2 Flow Rate FiO2 10/03/20 19:53 112 106/72 10/03/20 19:52 18 100 Room Air 10/03/20 15:07 98.2 I & O 10/02/20 10/02/20 10/03/20 15:00 23:00 07:00 Intake Total 600 ml 240 ml 120 ml Balance 600 ml 240 ml 120 ml Labs: Laboratory Tests Test 10/03/20 07:18 10/03/20 11:59 10/03/20 16:59 10/03/20 19:02 Glucose (Fingerstick) 114 mg/dL (70-99) H 156 mg/dL (70-99) H 161 mg/dL (70-99) H 154 mg/dL (70-99) H Current Medications: I have reviewed the current psychotropics carefully including drug interactions. Risk benefit ratio favors no change other than as noted in my dictated progress note. Diagnosis: Problems: (1) Impulse control disorder, unspecified (2) Anxiety disorder, unspecified (3) Dementia, vascular, with depression (4) Dementia, vascular, with delusions (5) Dementia in Alzheimer's disease with depression (6) Dementia in Alzheimer's disease with delusions (7) Dementia of the Alzheimer's type with early onset with behavioral disturbance (8) Major neurocognitive disorder MAYURI ANDERSEN MD Oct 03, 2020 20:46
[2020-10-04 06:06] VITALS: BP 100/66
[2020-10-04 07:29] LABS: BASO # 0.1 x10^3/uL (0.0-0.2); BASO % 1 % (0-3); EOS # 0.4 x10^3/uL (0.0-0.7); EOS % 6 % (0-3); HEMATOCRIT 39.1 % (39.0-53.0); HEMOGLOBIN 12.3 g/dL (13.0-17.5); LYMPH # 1.7 x10^3/uL (1.0-4.8); LYMPH % 28 % (24-48); MEAN CORPUSCULAR HEMOGLOBIN 24 pg (25-35); MEAN CORPUSCULAR HGB CONC 31 g/dL (31-37); MEAN CORPUSCULAR VOLUME 77 fL (79-100); MONO # 0.5 x10^3/uL (0.0-1.1); MONO % 8 % (0-9); NEUT # 3.6 x10^3uL (1.8-7.7); NEUT % 57 % (31-73); PLATELET COUNT 210 x10^3/uL (140-400); RED CELL DISTRIBUTION WIDTH 17.5 % (11.5-14.5); WHITE BLOOD COUNT 6.3 x10^3/uL (4.0-11.0)
[2020-10-04 07:50] LABS: ALBUMIN 2.7 g/dL (3.4-5.0); ALBUMIN/GLOBULIN RATIO 0.6 (1.0-1.7); ALK PHOS 138 U/L (46-116); ALT (SGPT) 17 U/L (16-63); ANION GAP 6 (6-14); AST (SGOT) 24 U/L (15-37); BLOOD UREA NITROGEN 15 mg/dL (8-26); BUN/CREATININE RATIO 14 (6-20); CALCIUM 9.1 mg/dL (8.5-10.1); CARBON DIOXIDE 27 mmol/L (21-32); CHLORIDE 105 mmol/L (98-107); CREATININE 1.1 mg/dL (0.7-1.3); GFR 65.6; GLUCOSE 105 mg/dL (70-99); POTASSIUM 4.7 mmol/L (3.5-5.1); SODIUM 138 mmol/L (136-145); TOTAL BILIRUBIN 0.4 mg/dL (0.2-1.0); TOTAL PROTEIN 7.1 g/dL (6.4-8.2)
[2020-10-04 07:51] LABS: VAL ACID 51 mcg/mL (50-100)
[2020-10-04] MEDS: LACTOBACILLUS RHAMNOSUS GG 1 CAPSULE. PO SCH ×2 (07:57→19:20)
[2020-10-04] MEDS: CHOLESTYRAMINE/ASPARTAME 4 GM PACKET PO SCH ×2 (07:57→19:21)
[2020-10-04] MEDS: FAMOTIDINE 20 MG TABLET PO SCH ×2 (07:58→19:20)
[2020-10-04] MEDS: INSULIN LISPRO 300 UNITS/3 ML VIAL. SQ SCH ×3 (07:58→17:00)
[2020-10-04] MEDS: TAMSULOSIN 0.4 MG CAP.ER.24H. PO SCH (07:58)
[2020-10-04] MEDS: POTASSIUM CHLORIDE 20 MEQ TABLET.ER. PO SCH (07:58)
[2020-10-04] MEDS: APIXABAN 5 MG TABLET. PO SCH ×2 (07:58→19:21)
[2020-10-04] MEDS: ASPIRIN CHEWABLE 81 MG TABLET. PO SCH (07:58)
[2020-10-04] MEDS: DIVALPROEX 125 MG CAP.SPRINK PO SCH ×2 (07:58→17:12)
[2020-10-04] MEDS: amLODIPine BESYLATE 2.5 MG TABLET PO SCH (07:58)
[2020-10-04] MEDS: METOPROLOL TART IMMED RELEASE 25 MG TABLET. PO SCH ×2 (07:59→19:20)
[2020-10-04 15:05] VITALS: BP 114/78
[2020-10-04] MEDS: MIRTAZAPINE 7.5 MG TABLET. PO SCH (19:20)
[2020-10-04] MEDS: OLANZapine 2.5 MG TABLET PO SCH (19:20)
[2020-10-04] MEDS: MELATONIN 3 MG TABLET PO PRN (19:21)
--- NOTE | 2020-10-04 20:59 | PDOC ---
Exam Note: Richy Note: Please also refer to the separate dictated note~for this date of service dictated separately.~Patient seen individually. Discussed the patient with Nursing staff reviewed the chart.~Reviewed interim history and current functioning. Reviewed vital signs,~Labs/ Radiology~and current medications noted below. Continue current treatment with the changes noted in the dictated addendum note Assessment: Vital Signs/I&O: Vital Signs Date Time Temp Pulse Resp B/P (MAP) Pulse Ox O2 Delivery O2 Flow Rate FiO2 10/04/20 19:20 99 114/78 10/04/20 15:05 98.1 20 97 10/04/20 06:06 Room Air I & O 10/03/20 10/03/20 10/04/20 15:00 23:00 07:00 Intake Total 600 ml 480 ml 240 ml Balance 600 ml 480 ml 240 ml Labs: Laboratory Tests Test 10/04/20 07:10 10/04/20 07:37 10/04/20 12:02 10/04/20 16:58 White Blood Count 6.3 x10^3/uL (4.0-11.0) Red Blood Count 5.10 x10^6/uL (4.30-5.70) Hemoglobin 12.3 g/dL (13.0-17.5) L Hematocrit 39.1 % (39.0-53.0) Mean Corpuscular Volume 77 fL (79-100) L Mean Corpuscular Hemoglobin 24 pg (25-35) L Mean Corpuscular Hemoglobin Concent 31 g/dL (31-37) Red Cell Distribution Width 17.5 % (11.5-14.5) H Platelet Count 210 x10^3/uL (140-400) Neutrophils (%) (Auto) 57 % (31-73) Lymphocytes (%) (Auto) 28 % (24-48) Monocytes (%) (Auto) 8 % (0-9) Eosinophils (%) (Auto) 6 % (0-3) H Basophils (%) (Auto) 1 % (0-3) Neutrophils # (Auto) 3.6 x10^3uL (1.8-7.7) Lymphocytes # (Auto) 1.7 x10^3/uL (1.0-4.8) Monocytes # (Auto) 0.5 x10^3/uL (0.0-1.1) Eosinophils # (Auto) 0.4 x10^3/uL (0.0-0.7) Basophils # (Auto) 0.1 x10^3/uL (0.0-0.2) Sodium Level 138 mmol/L (136-145) Potassium Level 4.7 mmol/L (3.5-5.1) Chloride Level 105 mmol/L (98-107) Carbon Dioxide Level 27 mmol/L (21-32) Anion Gap 6 (6-14) Blood Urea Nitrogen 15 mg/dL (8-26) Creatinine 1.1 mg/dL (0.7-1.3) Estimated GFR (Cockcroft-Gault) 65.6 BUN/Creatinine Ratio 14 (6-20) Glucose Level 105 mg/dL (70-99) H Calcium Level 9.1 mg/dL (8.5-10.1) Total Bilirubin 0.4 mg/dL (0.2-1.0) Aspartate Amino Transferase (AST) 24 U/L (15-37) Alanine Aminotransferase (ALT) 17 U/L (16-63) Alkaline Phosphatase 138 U/L (46-116) H Ammonia 10 mcmol/L (11-34) L Total Protein 7.1 g/dL (6.4-8.2) Albumin 2.7 g/dL (3.4-5.0) L Albumin/Globulin Ratio 0.6 (1.0-1.7) L Valproic Acid Level 51 mcg/mL (50-100) Valproic Acid Last Dose Date 10/03/20 Valproic Acid Last Dose Time 1700 Glucose (Fingerstick) 98 mg/dL (70-99) 198 mg/dL (70-99) H 136 mg/dL (70-99) H Test 10/04/20 20:02 Glucose (Fingerstick) 184 mg/dL (70-99) H Current Medications: I have reviewed the current psychotropics carefully including drug interactions. Risk benefit ratio favors no change other than as noted in my dictated progress note. Diagnosis: Problems: (1) Impulse control disorder, unspecified (2) Anxiety disorder, unspecified (3) Dementia, vascular, with depression (4) Dementia, vascular, with delusions (5) Dementia in Alzheimer's disease with depression (6) Dementia in Alzheimer's disease with delusions (7) Dementia of the Alzheimer's type with early onset with behavioral disturbance (8) Major neurocognitive disorder MAYURI ANDERSEN MD Oct 04, 2020 20:59
[2020-10-04] MEDS: QUEtiapine 25 MG TABLET. PO SCH (21:06)
[2020-10-05 06:33] VITALS: BP 89/56
[2020-10-05] MEDS: CHOLESTYRAMINE/ASPARTAME 4 GM PACKET PO SCH ×2 (07:50→19:33)
[2020-10-05] MEDS: ASPIRIN CHEWABLE 81 MG TABLET. PO SCH (07:50)
[2020-10-05] MEDS: POTASSIUM CHLORIDE 20 MEQ TABLET.ER. PO SCH (07:50)
[2020-10-05] MEDS: DIVALPROEX 125 MG CAP.SPRINK PO SCH ×2 (07:50→17:41)
[2020-10-05] MEDS: FAMOTIDINE 20 MG TABLET PO SCH ×2 (07:50→19:34)
[2020-10-05] MEDS: LACTOBACILLUS RHAMNOSUS GG 1 CAPSULE. PO SCH ×2 (07:50→19:33)
[2020-10-05] MEDS: INSULIN LISPRO 300 UNITS/3 ML VIAL. SQ SCH ×3 (07:51→17:49)
[2020-10-05] MEDS: TAMSULOSIN 0.4 MG CAP.ER.24H. PO SCH (07:51)
[2020-10-05] MEDS: APIXABAN 5 MG TABLET. PO SCH ×2 (07:51→19:34)
[2020-10-05] MEDS: METOPROLOL TART IMMED RELEASE 25 MG TABLET. PO SCH ×2 (07:51→19:34)
[2020-10-05] MEDS: amLODIPine BESYLATE 2.5 MG TABLET PO SCH (07:51)
--- NOTE | 2020-10-05 08:01 | PDOC ---
Exam Note: Richy Note: This note is a late entry for 10/02/2020 covers elements not covered in my initial note. Subjective: The patient was seen on telehealth rounds in the evening of 10/02/2020 with Delilah PERERA as the unit is on a lockdown by the [facility] of [facility] of COVID-19 exposure on the unit and no admission or discharges can be done. Discussed with nursing staff, reviewed the chart. He slept 5-3/4 hours previous night. He had a good day. Review of Systems: Ambulation impaired in wheelchair. No CV, , pulmonary, eye, ENT system symptoms on review. Mental Status Exam: The patient is oriented to himself and situation. Speech has some latency, coherent. Abstraction is fair. Computation is impaired. Language function intact. Attention span is short. Mood and affect remains labile, anxious. No suicidal or homicidal ideation. Laboratory Data: Reviewed. Impression: Major neurocognitive disorder Alzheimer vascular with delusion, depression, behavioral disturbance. Anxiety disorder unspecified. Impulse control disorder unspecified. Plan: No change from initial note. Assessment: Vital Signs/I&O: Vital Signs Date Time Temp Pulse Resp B/P (MAP) Pulse Ox O2 Delivery O2 Flow Rate FiO2 10/05/20 07:51 72 103/68 10/05/20 06:33 97.4 16 98 10/04/20 06:06 Room Air I & O 10/04/20 10/04/20 10/05/20 15:00 23:00 07:00 Intake Total 600 ml 480 ml Balance 600 ml 480 ml Labs: Laboratory Tests Test 10/04/20 12:02 10/04/20 16:58 10/04/20 20:02 10/05/20 07:44 Glucose (Fingerstick) 198 mg/dL (70-99) H 136 mg/dL (70-99) H 184 mg/dL (70-99) H 113 mg/dL (70-99) H Current Medications: Meds: Current Medications Medications (Trade) Dose Ordered Sig/[place] Route PRN Reason Start Time Stop Time Status Last Admin Dose Admin Quetiapine Fumarate (SEROquel) 25 mg QHS PO 10/04/20 21:00 10/04/20 21:06 I have reviewed the current psychotropics carefully including drug interactions. Risk benefit ratio favors no change other than as noted in my dictated progress note. Diagnosis: Problems: (1) Impulse control disorder, unspecified (2) Anxiety disorder, unspecified (3) Dementia, vascular, with depression (4) Dementia, vascular, with delusions (5) Dementia in Alzheimer's disease with depression (6) Dementia in Alzheimer's disease with delusions (7) Dementia of the Alzheimer's type with early onset with behavioral disturbance (8) Major neurocognitive disorder MAYURI ANDERSEN MD Oct 05, 2020 08:01
--- NOTE | 2020-10-05 08:16 | PDOC ---
Exam Note: Richy Note: This note is a late entry for 10/03/2020 covers elements not covered in my initial note. Subjective: The patient was seen on telehealth rounds in the evening of 10/03/2020 with Delilah PERERA as the unit is on a lockdown by the [facility] of COVID-19 exposure on the unit and no admission or discharges can be done. Discussed with nursing staff, reviewed the chart. He slept 3 hours previous night. He was agitated in the morning with his medications, resistive to medications, took it later and I addressed this with him. Review of Systems: Ambulation impaired in wheelchair. No CV, , pulmonary, eye, ENT system symptoms on review. Mental Status Exam: The patient is oriented to himself and situation. Speech has some latency, coherent. Abstraction is fair. Computation is impaired. Language function intact. Attention span is short. Mood and affect remains labile, anxious. No suicidal or homicidal ideation. Laboratory Data: Reviewed. Impression: Major neurocognitive disorder Alzheimer vascular with delusion, depression, behavioral disturbance. Anxiety disorder unspecified. Impulse control disorder unspecified. Plan: No change from initial note. Assessment: Vital Signs/I&O: Vital Signs Date Time Temp Pulse Resp B/P (MAP) Pulse Ox O2 Delivery O2 Flow Rate FiO2 10/05/20 07:51 72 103/68 10/05/20 06:33 97.4 16 98 10/04/20 06:06 Room Air I & O 10/04/20 10/04/20 10/05/20 15:00 23:00 07:00 Intake Total 600 ml 480 ml Balance 600 ml 480 ml Labs: Laboratory Tests Test 10/04/20 12:02 10/04/20 16:58 10/04/20 20:02 10/05/20 07:44 Glucose (Fingerstick) 198 mg/dL (70-99) H 136 mg/dL (70-99) H 184 mg/dL (70-99) H 113 mg/dL (70-99) H Current Medications: Meds: Current Medications Medications (Trade) Dose Ordered Sig/[place] Route PRN Reason Start Time Stop Time Status Last Admin Dose Admin Quetiapine Fumarate (SEROquel) 25 mg QHS PO 10/04/20 21:00 10/04/20 21:06 I have reviewed the current psychotropics carefully including drug interactions. Risk benefit ratio favors no change other than as noted in my dictated progress note. Diagnosis: Problems: (1) Impulse control disorder, unspecified (2) Anxiety disorder, unspecified (3) Dementia, vascular, with depression (4) Dementia, vascular, with delusions (5) Dementia in Alzheimer's disease with depression (6) Dementia in Alzheimer's disease with delusions (7) Dementia of the Alzheimer's type with early onset with behavioral disturbance (8) Major neurocognitive disorder MAYURI ANDERSEN MD Oct 05, 2020 08:16
--- NOTE | 2020-10-05 08:41 | PDOC ---
Exam Note: Richy Note: This note is a late entry for 10/04/2020 covers elements not covered in my initial note. Subjective: The patient was seen on telehealth rounds in the evening of 10/04/2020 with Leigh Ann PERERA as the unit is on a lockdown by the [facility] of COVID-19 exposure on the unit and no admission or discharges can be done. Discussed with nursing staff, reviewed the chart. He slept 5-1/4 hours previous night. He had a better morning, agitated in the evening. He is using profanities physically, threatening to attack staff. He had to go to the [facility] to reduce sensory stimuli and then he did better after a while and then make out of the hallway. He remains somewhat paranoid. Review of Systems: Ambulation impaired in wheelchair. No CV, , pulmonary, eye, ENT system symptoms on review. Mental Status Exam: The patient is oriented to himself and situation. Speech has some latency, coherent. Abstraction is fair. Computation is impaired. Language function intact. Attention span is short. Mood and affect remains labile, anxious. No suicidal or homicidal ideation. Laboratory Data: Reviewed. Impression: Major neurocognitive disorder Alzheimer vascular with delusion, depression, behavioral disturbance. Anxiety disorder unspecified. Impulse control disorder unspecified. Plan: No change from initial note. Valproic acid level is 51. Continue Depakote at current dosage. Level therapeutic. Start Seroquel 25 mg h.s. given his mood lability and psychotic symptoms. Continue rest unchanged. Adjust further as clinically indicated. Assessment: Vital Signs/I&O: Vital Signs Date Time Temp Pulse Resp B/P (MAP) Pulse Ox O2 Delivery O2 Flow Rate FiO2 10/05/20 07:51 72 103/68 10/05/20 06:33 97.4 16 98 10/04/20 06:06 Room Air I & O 10/04/20 10/04/20 10/05/20 15:00 23:00 07:00 Intake Total 600 ml 480 ml Balance 600 ml 480 ml Labs: Laboratory Tests Test 10/04/20 12:02 10/04/20 16:58 10/04/20 20:02 10/05/20 07:44 Glucose (Fingerstick) 198 mg/dL (70-99) H 136 mg/dL (70-99) H 184 mg/dL (70-99) H 113 mg/dL (70-99) H Current Medications: Meds: Current Medications Medications (Trade) Dose Ordered Sig/[place] Route PRN Reason Start Time Stop Time Status Last Admin Dose Admin Quetiapine Fumarate (SEROquel) 25 mg QHS PO 10/04/20 21:00 10/04/20 21:06 I have reviewed the current psychotropics carefully including drug interactions. Risk benefit ratio favors no change other than as noted in my dictated progress note. Diagnosis: Problems: (1) Impulse control disorder, unspecified (2) Anxiety disorder, unspecified (3) Dementia, vascular, with depression (4) Dementia, vascular, with delusions (5) Dementia in Alzheimer's disease with depression (6) Dementia in Alzheimer's disease with delusions (7) Dementia of the Alzheimer's type with early onset with behavioral disturbance (8) Major neurocognitive disorder MAYURI ANDERSEN MD Oct 05, 2020 08:41
[2020-10-05 15:41] VITALS: BP 118/75
[2020-10-05 19:30] VITALS: BP 121/70
[2020-10-05] MEDS: QUEtiapine 25 MG TABLET. PO SCH (19:33)
[2020-10-05] MEDS: OLANZapine 2.5 MG TABLET PO SCH (19:33)
[2020-10-05] MEDS: MIRTAZAPINE 7.5 MG TABLET. PO SCH (19:33)
--- NOTE | 2020-10-05 20:56 | PDOC ---
Exam Note: Richy Note: Please also refer to the separate dictated note~for this date of service dictated separately.~Patient seen individually. Discussed the patient with Nursing staff reviewed the chart.~Reviewed interim history and current functioning. Reviewed vital signs,~Labs/ Radiology~and current medications noted below. Continue current treatment with the changes noted in the dictated addendum note Assessment: Vital Signs/I&O: Vital Signs Date Time Temp Pulse Resp B/P (MAP) Pulse Ox O2 Delivery O2 Flow Rate FiO2 10/05/20 19:34 94 121/70 10/05/20 15:41 98.1 16 96 Room Air I & O 10/04/20 10/04/20 10/05/20 15:00 23:00 07:00 Intake Total 600 ml 480 ml Balance 600 ml 480 ml Labs: Laboratory Tests Test 10/05/20 07:44 10/05/20 11:57 10/05/20 17:21 10/05/20 19:17 Glucose (Fingerstick) 113 mg/dL (70-99) H 174 mg/dL (70-99) H 139 mg/dL (70-99) H 121 mg/dL (70-99) H Current Medications: Meds: Current Medications Medications (Trade) Dose Ordered Sig/[place] Route PRN Reason Start Time Stop Time Status Last Admin Dose Admin Quetiapine Fumarate (SEROquel) 25 mg QHS PO 10/04/20 21:00 10/05/20 19:33 Metoprolol Tartrate (Lopressor) 12.5 mg BID PO 10/05/20 21:00 10/05/20 19:34 I have reviewed the current psychotropics carefully including drug interactions. Risk benefit ratio favors no change other than as noted in my dictated progress note. Diagnosis: Problems: (1) Impulse control disorder, unspecified (2) Anxiety disorder, unspecified (3) Dementia, vascular, with depression (4) Dementia, vascular, with delusions (5) Dementia in Alzheimer's disease with depression (6) Dementia in Alzheimer's disease with delusions (7) Dementia of the Alzheimer's type with early onset with behavioral disturbance (8) Major neurocognitive disorder MAYURI ANDERSEN MD Oct 05, 2020 20:56
[2020-10-06 06:25] VITALS: BP 100/63
[2020-10-06] MEDS: FAMOTIDINE 20 MG TABLET PO SCH ×2 (08:02→20:11)
[2020-10-06] MEDS: CHOLESTYRAMINE/ASPARTAME 4 GM PACKET PO SCH ×2 (08:02→20:05)
[2020-10-06] MEDS: TAMSULOSIN 0.4 MG CAP.ER.24H. PO SCH (08:03)
[2020-10-06] MEDS: POTASSIUM CHLORIDE 20 MEQ TABLET.ER. PO SCH (08:03)
[2020-10-06] MEDS: LACTOBACILLUS RHAMNOSUS GG 1 CAPSULE. PO SCH ×2 (08:03→20:05)
[2020-10-06] MEDS: ASPIRIN CHEWABLE 81 MG TABLET. PO SCH (08:04)
[2020-10-06] MEDS: METOPROLOL TART IMMED RELEASE 25 MG TABLET. PO SCH ×2 (08:04→20:07)
[2020-10-06] MEDS: DIVALPROEX 125 MG CAP.SPRINK PO SCH ×2 (08:04→17:00)
[2020-10-06] MEDS: APIXABAN 5 MG TABLET. PO SCH ×2 (08:04→20:06)
[2020-10-06] MEDS: INSULIN LISPRO 300 UNITS/3 ML VIAL. SQ SCH ×3 (08:07→17:00)
[2020-10-06 15:00] VITALS: BP 121/72
[2020-10-06] MEDS: MIRTAZAPINE 7.5 MG TABLET. PO SCH (20:09)
[2020-10-06] MEDS: OLANZapine 2.5 MG TABLET PO SCH (20:10)
[2020-10-06] MEDS: QUEtiapine 25 MG TABLET. PO SCH (20:10)
[2020-10-06] MEDS: QUEtiapine 50 MG TABLET. PO SCH (21:00)
--- NOTE | 2020-10-06 21:11 | PDOC ---
Exam Note: Richy Note: Please also refer to the separate dictated note~for this date of service dictated separately.~Patient seen individually. Discussed the patient with Nursing staff reviewed the chart.~Reviewed interim history and current functioning. Reviewed vital signs,~Labs/ Radiology~and current medications noted below. Continue current treatment with the changes noted in the dictated addendum note Assessment: Vital Signs/I&O: Vital Signs Date Time Temp Pulse Resp B/P (MAP) Pulse Ox O2 Delivery O2 Flow Rate FiO2 10/06/20 20:07 94 121/72 10/06/20 15:00 98.4 20 99 Room Air I & O 10/05/20 10/05/20 10/06/20 15:00 23:00 07:00 Intake Total 720 ml 600 ml Balance 720 ml 600 ml Labs: Laboratory Tests Test 10/06/20 07:32 10/06/20 11:36 10/06/20 16:57 10/06/20 17:04 Glucose (Fingerstick) 125 mg/dL (70-99) H 180 mg/dL (70-99) H 332 mg/dL (70-99) H 219 mg/dL (70-99) H Test 10/06/20 19:18 Glucose (Fingerstick) 121 mg/dL (70-99) H Current Medications: I have reviewed the current psychotropics carefully including drug interactions. Risk benefit ratio favors no change other than as noted in my dictated progress note. Diagnosis: Problems: (1) Impulse control disorder, unspecified (2) Anxiety disorder, unspecified (3) Dementia, vascular, with depression (4) Dementia, vascular, with delusions (5) Dementia in Alzheimer's disease with depression (6) Dementia in Alzheimer's disease with delusions (7) Dementia of the Alzheimer's type with early onset with behavioral disturbance (8) Major neurocognitive disorder MAYURI ANDERSEN MD Oct 06, 2020 21:11
[2020-10-07 06:09] VITALS: BP 127/83
[2020-10-07] MEDS: INSULIN LISPRO 300 UNITS/3 ML VIAL. SQ SCH ×3 (07:58→17:00)
[2020-10-07] MEDS: FAMOTIDINE 20 MG TABLET PO SCH ×2 (08:45→20:30)
[2020-10-07] MEDS: METOPROLOL TART IMMED RELEASE 25 MG TABLET. PO SCH ×2 (08:46→20:27)
[2020-10-07] MEDS: POTASSIUM CHLORIDE 20 MEQ TABLET.ER. PO SCH (08:46)
[2020-10-07] MEDS: APIXABAN 5 MG TABLET. PO SCH ×2 (08:47→20:26)
[2020-10-07] MEDS: CHOLESTYRAMINE/ASPARTAME 4 GM PACKET PO SCH ×2 (08:47→20:26)
[2020-10-07] MEDS: LACTOBACILLUS RHAMNOSUS GG 1 CAPSULE. PO SCH ×2 (08:47→20:28)
[2020-10-07] MEDS: TAMSULOSIN 0.4 MG CAP.ER.24H. PO SCH (08:47)
[2020-10-07] MEDS: DIVALPROEX 125 MG CAP.SPRINK PO SCH ×2 (08:47→17:25)
[2020-10-07] MEDS: ASPIRIN CHEWABLE 81 MG TABLET. PO SCH (08:47)
[2020-10-07 16:09] VITALS: BP 107/69
[2020-10-07] MEDS: QUEtiapine 50 MG TABLET. PO SCH (20:28)
[2020-10-07] MEDS: OLANZapine 2.5 MG TABLET PO SCH (20:29)
[2020-10-07] MEDS: MIRTAZAPINE 7.5 MG TABLET. PO SCH (20:29)
--- NOTE | 2020-10-07 21:26 | PDOC ---
Exam Note: Richy Note: This note is a late entry for 10/05/2020 covers elements not covered in my initial note. Subjective: The patient was seen on telehealth rounds in the evening of 10/05/2020 with Delilah PERERA as the unit is on a lockdown by the [facility] of COVID-19 exposure on the unit with no admissions or discharges. Discussed with nursing staff, reviewed the chart. He slept 5-3/4 hours previous night. Per nursing report, the patient appeared somewhat confused previous evening, [place] [employer] and felt they were checking his blood sugars. He was agitated, had to be in the [place] [facility] but he has done better during the day on 10/05. He continues to have some mood lability, agitation but better than before. Review of Systems: Ambulation impaired in wheelchair. No CV, , pulmonary, eye, ENT system symptoms on review. Mental Status Exam: The patient is oriented to himself and situation. He was seen on telehealth rounds, still somewhat paranoid. I discussed with him that I had a communication with [facility] staff and there was Covid 19 exposure in the [facility] quite extensively and he is adamant he wants to go home. I processed this with him. Speech has some latency, coherent. Abstraction is fair. Computation is impaired. Language function intact. Attention span is short. Mood and affect remains labile. No suicidal or homicidal ideation. Laboratory Data: Reviewed. Impression: Major neurocognitive disorder Alzheimer vascular with delusion, depression, behavioral disturbance. Anxiety disorder unspecified. Impulse control disorder unspecified. Plan: No change from initial note. Assessment: Vital Signs/I&O: Vital Signs Date Time Temp Pulse Resp B/P (MAP) Pulse Ox O2 Delivery O2 Flow Rate FiO2 10/07/20 20:27 87 107/69 10/07/20 16:09 98.2 20 96 10/07/20 06:09 Room Air I & O 10/06/20 10/06/20 10/07/20 15:00 23:00 07:00 Intake Total 720 ml 600 ml Balance 720 ml 600 ml Labs: Laboratory Tests Test 10/07/20 07:48 10/07/20 11:48 10/07/20 16:49 10/07/20 19:16 Glucose (Fingerstick) 114 mg/dL (70-99) H 184 mg/dL (70-99) H 188 mg/dL (70-99) H 160 mg/dL (70-99) H Current Medications: I have reviewed the current psychotropics carefully including drug interactions. Risk benefit ratio favors no change other than as noted in my dictated progress note. Diagnosis: Problems: (1) Impulse control disorder, unspecified (2) Anxiety disorder, unspecified (3) Dementia, vascular, with depression (4) Dementia, vascular, with delusions (5) Dementia in Alzheimer's disease with depression (6) Dementia in Alzheimer's disease with delusions (7) Dementia of the Alzheimer's type with early onset with behavioral disturbance (8) Major neurocognitive disorder MAYURI ANDERSEN MD Oct 07, 2020 21:26
--- NOTE | 2020-10-07 21:37 | PDOC ---
Exam Note: Richy Note: This note is a late entry for 10/06/2020 covers elements not covered in my initial note. Subjective: The patient was seen on telehealth rounds in the evening of 10/06/2020 with Cristi PERERA as the unit is on a lockdown by the [facility] of COVID-19 exposure on the unit with no admissions or discharges. Discussed with nursing staff, reviewed the chart. He slept 7-1/2 hours previous night. He has had a little better day. After I completed the rounds, the patient found me in a different part of the unit, came in his wheelchair demanding to talk to his over the phone. He was informed that it was rather late and he can have a telephone call on 10/07. He became loud, threatening, stating he would not take any of his medications, demanding. I processed this with him. Review of Systems: Ambulation impaired in wheelchair. No CV, , pulmonary, eye, ENT system symptoms on review. Mental Status Exam: The patient is oriented to himself and situation. He was somewhat paranoid, suspicious, again demanding to go home rather than back to the alf. I addressed this with him. Speech has some latency, coherent. Abstraction is fair. Computation is impaired. Language function intact. Attention span is short. Mood and affect labile, paranoid. No suicidal or homicidal ideation. Laboratory Data: Reviewed. Impression: Major neurocognitive disorder Alzheimer vascular with delusion, depression, behavioral disturbance. Anxiety disorder unspecified. Impulse control disorder unspecified. Plan: No change from initial note. The patient is currently on Seroquel 25 mg h.s. We will increase to 50 mg h.s. Valproic acid level is therapeutic at 51 on Depakote 250 mg a.m. and 500 mg 5 p.m. Continue Remeron along with Zyprexa p.r.n., melatonin p.r.n. Assessment: Vital Signs/I&O: Vital Signs Date Time Temp Pulse Resp B/P (MAP) Pulse Ox O2 Delivery O2 Flow Rate FiO2 10/07/20 20:27 87 107/69 10/07/20 16:09 98.2 20 96 10/07/20 06:09 Room Air I & O 10/06/20 10/06/20 10/07/20 15:00 23:00 07:00 Intake Total 720 ml 600 ml Balance 720 ml 600 ml Labs: Laboratory Tests Test 10/07/20 07:48 10/07/20 11:48 10/07/20 16:49 10/07/20 19:16 Glucose (Fingerstick) 114 mg/dL (70-99) H 184 mg/dL (70-99) H 188 mg/dL (70-99) H 160 mg/dL (70-99) H Current Medications: I have reviewed the current psychotropics carefully including drug interactions. Risk benefit ratio favors no change other than as noted in my dictated progress note. Diagnosis: Problems: (1) Impulse control disorder, unspecified (2) Anxiety disorder, unspecified (3) Dementia, vascular, with depression (4) Dementia, vascular, with delusions (5) Dementia in Alzheimer's disease with depression (6) Dementia in Alzheimer's disease with delusions (7) Dementia of the Alzheimer's type with early onset with behavioral disturbance (8) Major neurocognitive disorder MAYURI ANDERSEN MD Oct 07, 2020 21:37
--- NOTE | 2020-10-07 21:37 | PDOC ---
Exam Note: Richy Note: Please also refer to the separate dictated note~for this date of service dictated separately.~Patient seen individually. Discussed the patient with Nursing staff reviewed the chart.~Reviewed interim history and current functioning. Reviewed vital signs,~Labs/ Radiology~and current medications noted below. Continue current treatment with the changes noted in the dictated addendum note Assessment: Vital Signs/I&O: Vital Signs Date Time Temp Pulse Resp B/P (MAP) Pulse Ox O2 Delivery O2 Flow Rate FiO2 10/07/20 20:27 87 107/69 10/07/20 16:09 98.2 20 96 10/07/20 06:09 Room Air I & O 10/06/20 10/06/20 10/07/20 15:00 23:00 07:00 Intake Total 720 ml 600 ml Balance 720 ml 600 ml Labs: Laboratory Tests Test 10/07/20 07:48 10/07/20 11:48 10/07/20 16:49 10/07/20 19:16 Glucose (Fingerstick) 114 mg/dL (70-99) H 184 mg/dL (70-99) H 188 mg/dL (70-99) H 160 mg/dL (70-99) H Current Medications: I have reviewed the current psychotropics carefully including drug interactions. Risk benefit ratio favors no change other than as noted in my dictated progress note. Diagnosis: Problems: (1) Impulse control disorder, unspecified (2) Anxiety disorder, unspecified (3) Dementia, vascular, with depression (4) Dementia, vascular, with delusions (5) Dementia in Alzheimer's disease with depression (6) Dementia in Alzheimer's disease with delusions (7) Dementia of the Alzheimer's type with early onset with behavioral disturbance (8) Major neurocognitive disorder MAYURI ANDERSEN MD Oct 07, 2020 21:37
[2020-10-08 06:03] VITALS: BP 147/70
[2020-10-08] MEDS: INSULIN LISPRO 300 UNITS/3 ML VIAL. SQ SCH ×3 (07:49→17:00)
[2020-10-08] MEDS: ASPIRIN CHEWABLE 81 MG TABLET. PO SCH (08:32)
[2020-10-08] MEDS: POTASSIUM CHLORIDE 20 MEQ TABLET.ER. PO SCH (08:32)
[2020-10-08] MEDS: APIXABAN 5 MG TABLET. PO SCH ×2 (08:32→20:09)
[2020-10-08] MEDS: TAMSULOSIN 0.4 MG CAP.ER.24H. PO SCH (08:32)
[2020-10-08] MEDS: DIVALPROEX 125 MG CAP.SPRINK PO SCH ×2 (08:33→17:20)
[2020-10-08] MEDS: CHOLECALCIFEROL (VITAMIN D3) 50,000 UNIT CAPSULE PO SCH (08:33)
[2020-10-08] MEDS: METOPROLOL TART IMMED RELEASE 25 MG TABLET. PO SCH ×2 (08:33→20:10)
[2020-10-08] MEDS: LACTOBACILLUS RHAMNOSUS GG 1 CAPSULE. PO SCH ×2 (08:33→20:08)
[2020-10-08] MEDS: CHOLESTYRAMINE/ASPARTAME 4 GM PACKET PO SCH ×2 (08:33→20:08)
[2020-10-08] MEDS: FAMOTIDINE 20 MG TABLET PO SCH ×2 (08:33→20:10)
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
[2020-10-08 15:50] VITALS: BP 112/68
[2020-10-08] MEDS: OLANZapine 2.5 MG TABLET PO SCH (20:09)
[2020-10-08] MEDS: QUEtiapine 50 MG TABLET. PO SCH (20:09)
[2020-10-08] MEDS: MIRTAZAPINE 7.5 MG TABLET. PO SCH (20:10)
[2020-10-08] MEDS: traMADol 50 MG TABLET PO PRN (20:16)
--- NOTE | 2020-10-08 20:58 | PDOC ---
Exam Note: Richy Note: Please also refer to the separate dictated note~for this date of service dictated separately.~Patient seen individually. Discussed the patient with Nursing staff reviewed the chart.~Reviewed interim history and current functioning. Reviewed vital signs,~Labs/ Radiology~and current medications noted below. Continue current treatment with the changes noted in the dictated addendum note Assessment: Vital Signs/I&O: Vital Signs Date Time Temp Pulse Resp B/P (MAP) Pulse Ox O2 Delivery O2 Flow Rate FiO2 10/08/20 20:16 99 10/08/20 20:10 86 112/68 10/08/20 15:50 97.9 18 10/07/20 06:09 Room Air I & O 10/07/20 10/07/20 10/08/20 15:00 23:00 07:00 Intake Total 720 ml 360 ml Balance 720 ml 360 ml Labs: Laboratory Tests Test 10/08/20 07:42 10/08/20 11:29 10/08/20 17:08 10/08/20 19:08 Glucose (Fingerstick) 107 mg/dL (70-99) H 160 mg/dL (70-99) H 168 mg/dL (70-99) H 204 mg/dL (70-99) H Current Medications: Meds: Current Medications Medications (Trade) Dose Ordered Sig/[place] Route PRN Reason Start Time Stop Time Status Last Admin Dose Admin Quetiapine Fumarate (SEROquel) 75 mg QHS PO 10/08/20 21:00 10/08/20 20:09 I have reviewed the current psychotropics carefully including drug interactions. Risk benefit ratio favors no change other than as noted in my dictated progress note. Diagnosis: Problems: (1) Impulse control disorder, unspecified (2) Anxiety disorder, unspecified (3) Dementia, vascular, with depression (4) Dementia, vascular, with delusions (5) Dementia in Alzheimer's disease with depression (6) Dementia in Alzheimer's disease with delusions (7) Dementia of the Alzheimer's type with early onset with behavioral disturbance (8) Major neurocognitive disorder MAYURI ANDERSEN MD Oct 08, 2020 20:58
[2020-10-09 05:58] VITALS: BP 123/68
--- NOTE | 2020-10-09 07:59 | PDOC ---
Exam Note: Richy Note: This note is a late entry for 10/07/2020 covers elements not covered in my initial note. Subjective: The patient was seen on telehealth rounds in the evening of 10/07/2020 with Cristi PERERA as the unit is on a lockdown by the [facility] of COVID-19 exposure on the unit with no admissions or discharges. Discussed with nursing staff, reviewed the chart. He slept 5-1/2 hours previous night. He has had a better day. He has been incontinent of stool at one time, getting friendly with another hypomanic patient. In the evening, he was extremely agitated, wanting nursing staff to get him a newspaper and when they are unable to, he said he would find her in an alley and shoot her. He has very limited insight when addressed. Review of Systems: Ambulation impaired in wheelchair. No CV, , pulmonary, eye, ENT system symptoms on review. Mental Status Exam: The patient is oriented to himself and situation. He seemed to show very limited insight into his threats and agitation, aggression later seems to try and take back the threats he makes. Speech coherent. Abstraction is fair. Computation is impaired. Language function intact. Attention span is somewhat short. Mood and affect paranoid, labile. No suicidal or homicidal ideation. Laboratory Data: Reviewed. Impression: Major neurocognitive disorder Alzheimer vascular with delusion, depression, behavioral disturbance. Anxiety disorder unspecified. Impulse control disorder unspecified. Plan: No change from initial note. We have recently increased the patients Seroquel to 50 mg h.s. We may need to increase it again in due course. Assessment: Vital Signs/I&O: Vital Signs Date Time Temp Pulse Resp B/P (MAP) Pulse Ox O2 Delivery O2 Flow Rate FiO2 10/09/20 05:58 97.6 84 18 123/68 (86) 99 10/07/20 06:09 Room Air I & O 10/08/20 10/08/20 10/09/20 15:00 23:00 07:00 Intake Total 840 ml 480 ml Balance 840 ml 480 ml Labs: Laboratory Tests Test 10/08/20 11:29 10/08/20 17:08 10/08/20 19:08 10/09/20 07:31 Glucose (Fingerstick) 160 mg/dL (70-99) H 168 mg/dL (70-99) H 204 mg/dL (70-99) H 115 mg/dL (70-99) H Current Medications: Meds: Current Medications Medications (Trade) Dose Ordered Sig/[place] Route PRN Reason Start Time Stop Time Status Last Admin Dose Admin Quetiapine Fumarate (SEROquel) 75 mg QHS PO 10/08/20 21:00 10/08/20 20:09 I have reviewed the current psychotropics carefully including drug interactions. Risk benefit ratio favors no change other than as noted in my dictated progress note. Diagnosis: Problems: (1) Impulse control disorder, unspecified (2) Anxiety disorder, unspecified (3) Dementia, vascular, with depression (4) Dementia, vascular, with delusions (5) Dementia in Alzheimer's disease with depression (6) Dementia in Alzheimer's disease with delusions (7) Dementia of the Alzheimer's type with early onset with behavioral disturbance (8) Major neurocognitive disorder MAYURI ANDERSEN MD Oct 09, 2020 07:58
[2020-10-09] MEDS: APIXABAN 5 MG TABLET. PO SCH ×2 (08:00→20:18)
[2020-10-09] MEDS: DIVALPROEX 125 MG CAP.SPRINK PO SCH ×2 (08:00→16:47)
[2020-10-09] MEDS: FAMOTIDINE 20 MG TABLET PO SCH ×2 (08:00→20:17)
[2020-10-09] MEDS: POTASSIUM CHLORIDE 20 MEQ TABLET.ER. PO SCH (08:00)
[2020-10-09] MEDS: TAMSULOSIN 0.4 MG CAP.ER.24H. PO SCH (08:00)
[2020-10-09] MEDS: INSULIN LISPRO 300 UNITS/3 ML VIAL. SQ SCH ×3 (08:00→17:41)
[2020-10-09] MEDS: METOPROLOL TART IMMED RELEASE 25 MG TABLET. PO SCH ×2 (08:00→20:23)
[2020-10-09] MEDS: CHOLESTYRAMINE/ASPARTAME 4 GM PACKET PO SCH ×2 (08:00→20:19)
[2020-10-09] MEDS: LACTOBACILLUS RHAMNOSUS GG 1 CAPSULE. PO SCH ×2 (08:01→20:18)
[2020-10-09] MEDS: ASPIRIN CHEWABLE 81 MG TABLET. PO SCH (08:01)
[2020-10-09] MEDS: ACETAMINOPHEN 325 MG TABLET PO PRN (08:02)
--- NOTE | 2020-10-09 08:10 | PDOC ---
Exam Note: Richy Note: This note is a late entry for 10/08/2020 covers elements not covered in my initial note. Subjective: The patient was seen on telehealth rounds in the morning of 10/08/2020 for treatment team meeting with Nasim (social sciences professor), Jennifer, activity therapy, and Heidi RN as the unit is on a lockdown by the [facility] of COVID-19 exposure on the unit with no admissions or discharges. Discussed with nursing staff, reviewed the chart. He slept 6 hours previous night. He gets intermittently aggressive, angry, agitated and was quite impulsive when confronted on his threats. Assessment was made partly by observation by nursing staff. Also discussed the patient in the evening with Leigh Ann PERERA. He is irritable at time, specifically with another patient on the unit. Review of Systems: Ambulation impaired in wheelchair. No CV, , pulmonary, eye, ENT system symptoms on review. Mental Status Exam: The patient is oriented to himself and situation. He is angry, agitated and quite impulsive. Speech has been coherent. Abstraction is fair. Computation is impaired. Language function intact. Attention span is short. Mood and affect is withdrawn. No suicidal or homicidal ideation. Laboratory Data: Reviewed. Impression: Major neurocognitive disorder Alzheimer vascular with delusion, depression, behavioral disturbance. Anxiety disorder unspecified. Impulse control disorder unspecified. Plan: Continue psychotropics from initial note. Increase Seroquel from 50 mg h.s. to 75 mg h.s. Assessment: Vital Signs/I&O: Vital Signs Date Time Temp Pulse Resp B/P (MAP) Pulse Ox O2 Delivery O2 Flow Rate FiO2 10/09/20 08:00 84 123/68 10/09/20 05:58 97.6 18 99 10/07/20 06:09 Room Air I & O 10/08/20 10/08/20 10/09/20 15:00 23:00 07:00 Intake Total 840 ml 480 ml Balance 840 ml 480 ml Labs: Laboratory Tests Test 10/08/20 11:29 10/08/20 17:08 10/08/20 19:08 10/09/20 07:31 Glucose (Fingerstick) 160 mg/dL (70-99) H 168 mg/dL (70-99) H 204 mg/dL (70-99) H 115 mg/dL (70-99) H Current Medications: Meds: Current Medications Medications (Trade) Dose Ordered Sig/[place] Route PRN Reason Start Time Stop Time Status Last Admin Dose Admin Quetiapine Fumarate (SEROquel) 75 mg QHS PO 10/08/20 21:00 10/08/20 20:09 I have reviewed the current psychotropics carefully including drug interactions. Risk benefit ratio favors no change other than as noted in my dictated progress note. Diagnosis: Problems: (1) Impulse control disorder, unspecified (2) Anxiety disorder, unspecified (3) Dementia, vascular, with depression (4) Dementia, vascular, with delusions (5) Dementia in Alzheimer's disease with depression (6) Dementia in Alzheimer's disease with delusions (7) Dementia of the Alzheimer's type with early onset with behavioral disturbance (8) Major neurocognitive disorder MAYURI ANDERSEN MD Oct 09, 2020 08:10
[2020-10-09 15:47] VITALS: BP 93/59
[2020-10-09] MEDS: OLANZapine 2.5 MG TABLET PO SCH (20:17)
[2020-10-09] MEDS: MIRTAZAPINE 7.5 MG TABLET. PO SCH (20:18)
[2020-10-09] MEDS: QUEtiapine 50 MG TABLET. PO SCH (20:19)
--- NOTE | 2020-10-09 21:03 | PDOC ---
Exam Note: Richy Note: Please also refer to the separate dictated note~for this date of service dictated separately.~Patient seen individually. Discussed the patient with Nursing staff reviewed the chart.~Reviewed interim history and current functioning. Reviewed vital signs,~Labs/ Radiology~and current medications noted below. Continue current treatment with the changes noted in the dictated addendum note Assessment: Vital Signs/I&O: Vital Signs Date Time Temp Pulse Resp B/P (MAP) Pulse Ox O2 Delivery O2 Flow Rate FiO2 10/09/20 20:23 79 108/65 10/09/20 15:47 97.5 18 97 10/07/20 06:09 Room Air I & O 10/08/20 10/08/20 10/09/20 14:59 22:59 06:59 Intake Total 840 ml 480 ml Balance 840 ml 480 ml Labs: Laboratory Tests Test 10/09/20 07:31 10/09/20 11:06 10/09/20 16:24 10/09/20 19:16 Glucose (Fingerstick) 115 mg/dL (70-99) H 129 mg/dL (70-99) H 212 mg/dL (70-99) H 140 mg/dL (70-99) H Current Medications: I have reviewed the current psychotropics carefully including drug interactions. Risk benefit ratio favors no change other than as noted in my dictated progress note. Diagnosis: Problems: (1) Impulse control disorder, unspecified (2) Anxiety disorder, unspecified (3) Dementia, vascular, with depression (4) Dementia, vascular, with delusions (5) Dementia in Alzheimer's disease with depression (6) Dementia in Alzheimer's disease with delusions (7) Dementia of the Alzheimer's type with early onset with behavioral disturbance (8) Major neurocognitive disorder MAYURI ANDERSEN MD Oct 09, 2020 21:03
[2020-10-10 05:55] VITALS: BP 106/66
[2020-10-10] MEDS: INSULIN LISPRO 300 UNITS/3 ML VIAL. SQ SCH ×3 (08:00→17:00)
[2020-10-10] MEDS: TAMSULOSIN 0.4 MG CAP.ER.24H. PO SCH (08:19)
[2020-10-10] MEDS: DIVALPROEX 125 MG CAP.SPRINK PO SCH ×2 (08:19→17:04)
[2020-10-10] MEDS: POTASSIUM CHLORIDE 20 MEQ TABLET.ER. PO SCH (08:19)
[2020-10-10] MEDS: CHOLESTYRAMINE/ASPARTAME 4 GM PACKET PO SCH ×2 (08:19→20:51)
[2020-10-10] MEDS: FAMOTIDINE 20 MG TABLET PO SCH ×2 (08:19→20:51)
[2020-10-10] MEDS: ASPIRIN CHEWABLE 81 MG TABLET. PO SCH (08:19)
[2020-10-10] MEDS: LACTOBACILLUS RHAMNOSUS GG 1 CAPSULE. PO SCH ×2 (08:19→20:51)
[2020-10-10] MEDS: APIXABAN 5 MG TABLET. PO SCH ×2 (08:20→20:53)
[2020-10-10] MEDS: METOPROLOL TART IMMED RELEASE 25 MG TABLET. PO SCH ×2 (08:20→20:52)
[2020-10-10 15:47] VITALS: BP 105/66
[2020-10-10] MEDS: QUEtiapine 50 MG TABLET. PO SCH (20:51)
--- NOTE | 2020-10-10 20:52 | PDOC ---
Exam Note: Richy Note: Please also refer to the separate dictated note~for this date of service dictated separately.~Patient seen individually. Discussed the patient with Nursing staff reviewed the chart.~Reviewed interim history and current functioning. Reviewed vital signs,~Labs/ Radiology~and current medications noted below. Continue current treatment with the changes noted in the dictated addendum note Assessment: Vital Signs/I&O: Vital Signs Date Time Temp Pulse Resp B/P (MAP) Pulse Ox O2 Delivery O2 Flow Rate FiO2 10/10/20 15:47 98.2 87 16 105/66 (79) 98 10/07/20 06:09 Room Air I & O 10/09/20 10/09/20 10/10/20 15:00 23:00 07:00 Intake Total 720 ml 600 ml Balance 720 ml 600 ml Labs: Laboratory Tests Test 10/10/20 07:53 10/10/20 12:03 10/10/20 16:49 10/10/20 18:56 Glucose (Fingerstick) 115 mg/dL (70-99) H 140 mg/dL (70-99) H 142 mg/dL (70-99) H 177 mg/dL (70-99) H Current Medications: I have reviewed the current psychotropics carefully including drug interactions. Risk benefit ratio favors no change other than as noted in my dictated progress note. Diagnosis: Problems: (1) Impulse control disorder, unspecified (2) Anxiety disorder, unspecified (3) Dementia, vascular, with depression (4) Dementia, vascular, with delusions (5) Dementia in Alzheimer's disease with depression (6) Dementia in Alzheimer's disease with delusions (7) Dementia of the Alzheimer's type with early onset with behavioral disturbance (8) Major neurocognitive disorder MAYURI ANDERSEN MD Oct 10, 2020 20:52
[2020-10-10] MEDS: MIRTAZAPINE 7.5 MG TABLET. PO SCH (20:53)
[2020-10-10] MEDS: OLANZapine 2.5 MG TABLET PO SCH (20:53)
[2020-10-11 06:09] VITALS: BP 136/68
[2020-10-11] MEDS: INSULIN LISPRO 300 UNITS/3 ML VIAL. SQ SCH ×3 (08:00→17:00)
--- NOTE | 2020-10-11 08:09 | PDOC ---
Exam Note: Richy Note: This note is a late entry for 10/09/2020 covers elements not covered in my initial note. Subjective: The patient was seen on telehealth rounds in the evening of 10/09/2020 with Delilah PERERA as the unit is on a lockdown by the [facility] of COVID-19 exposure on the unit with no admission or discharges can be done. Discussed with nursing staff, reviewed the chart. He slept 7 hours previous night. The patient was quite agitated previous night, specifically with other patients on the unit. I addressed this with him. Review of Systems: Ambulation impaired in wheelchair. No CV, , pulmonary, eye, ENT system symptoms on review. Mental Status Exam: The patient is oriented to himself and situation. He was fixated on discharge plans during individual visit and I addressed this with him. Speech has been coherent. Abstraction is fair. Computation is impaired. Language function intact. Attention span is short. Mood and affect is withdrawn. No suicidal or homicidal ideation. Laboratory Data: Reviewed. Impression: Major neurocognitive disorder Alzheimer vascular with delusion, depression, behavioral disturbance. Anxiety disorder unspecified. Impulse control disorder unspecified. Plan: Continue psychotropics from initial note. Assessment: Vital Signs/I&O: Vital Signs Date Time Temp Pulse Resp B/P (MAP) Pulse Ox O2 Delivery O2 Flow Rate FiO2 10/11/20 06:09 97.7 89 20 136/68 (90) 98 10/07/20 06:09 Room Air I & O 10/10/20 10/10/20 10/11/20 15:00 23:00 07:00 Intake Total 840 ml 480 ml Balance 840 ml 480 ml Labs: Laboratory Tests Test 10/10/20 12:03 10/10/20 16:49 10/10/20 18:56 10/11/20 07:52 Glucose (Fingerstick) 140 mg/dL (70-99) H 142 mg/dL (70-99) H 177 mg/dL (70-99) H 115 mg/dL (70-99) H Current Medications: I have reviewed the current psychotropics carefully including drug interactions. Risk benefit ratio favors no change other than as noted in my dictated progress note. Diagnosis: Problems: (1) Impulse control disorder, unspecified (2) Anxiety disorder, unspecified (3) Dementia, vascular, with depression (4) Dementia, vascular, with delusions (5) Dementia in Alzheimer's disease with depression (6) Dementia in Alzheimer's disease with delusions (7) Dementia of the Alzheimer's type with early onset with behavioral disturbance (8) Major neurocognitive disorder MAYURI ANDERSEN MD Oct 11, 2020 08:09
--- NOTE | 2020-10-11 08:21 | PDOC ---
Exam Note: Richy Note: This note is a late entry for 10/10/2020 covers elements not covered in my initial note. Subjective: The patient was seen on telehealth rounds in the evening of 10/10/2020 with Delilah PERERA as the unit is on a lockdown by the [facility] of COVID-19 exposure on the unit with no admission or discharges can be done. Discussed with nursing staff, reviewed the chart. He slept 7 hours previous night. He has been taking his Ensure supplement; otherwise oral intake remains somewhat poor. He remains on doxycycline for his UTI. Review of Systems: Patient complains of feeling cold again and once again his room temperature is 74.5. [facility] nursing aid double checked this. Ambulation impaired in wheelchair. No CV, , pulmonary, eye, ENT system symptoms on review. He is hard of hearing. Mental Status Exam: The patient is oriented to himself and situation. He is verbal, interactive, smiling, has difficulty following a conversation if anyone speaks fast to him. Speech has been coherent. Abstraction is fair. Computation is impaired. Language function intact. Attention span is short. Mood and affect is improved. No suicidal or homicidal ideation. Laboratory Data: Reviewed. Impression: Major neurocognitive disorder Alzheimer vascular with delusion, depression, behavioral disturbance. Anxiety disorder unspecified. Impulse control disorder unspecified. Plan: Continue psychotropics from initial note. Assessment: Vital Signs/I&O: Vital Signs Date Time Temp Pulse Resp B/P (MAP) Pulse Ox O2 Delivery O2 Flow Rate FiO2 10/11/20 06:09 97.7 89 20 136/68 (90) 98 10/07/20 06:09 Room Air I & O 10/10/20 10/10/20 10/11/20 15:00 23:00 07:00 Intake Total 840 ml 480 ml Balance 840 ml 480 ml Labs: Laboratory Tests Test 10/10/20 12:03 10/10/20 16:49 10/10/20 18:56 10/11/20 07:52 Glucose (Fingerstick) 140 mg/dL (70-99) H 142 mg/dL (70-99) H 177 mg/dL (70-99) H 115 mg/dL (70-99) H Current Medications: I have reviewed the current psychotropics carefully including drug interactions. Risk benefit ratio favors no change other than as noted in my dictated progress note. Diagnosis: Problems: (1) Impulse control disorder, unspecified (2) Anxiety disorder, unspecified (3) Dementia, vascular, with depression (4) Dementia, vascular, with delusions (5) Dementia in Alzheimer's disease with depression (6) Dementia in Alzheimer's disease with delusions (7) Dementia of the Alzheimer's type with early onset with behavioral disturbance (8) Major neurocognitive disorder MAYURI ANDERSEN MD Oct 11, 2020 08:21
[2020-10-11] MEDS: APIXABAN 5 MG TABLET. PO SCH ×2 (08:35→20:40)
[2020-10-11] MEDS: ASPIRIN CHEWABLE 81 MG TABLET. PO SCH (08:35)
[2020-10-11] MEDS: LACTOBACILLUS RHAMNOSUS GG 1 CAPSULE. PO SCH ×2 (08:35→20:40)
[2020-10-11] MEDS: FAMOTIDINE 20 MG TABLET PO SCH ×2 (08:35→20:40)
[2020-10-11] MEDS: DIVALPROEX 125 MG CAP.SPRINK PO SCH ×2 (08:35→17:06)
[2020-10-11] MEDS: METOPROLOL TART IMMED RELEASE 25 MG TABLET. PO SCH ×2 (08:36→20:40)
[2020-10-11] MEDS: POTASSIUM CHLORIDE 20 MEQ TABLET.ER. PO SCH (08:36)
[2020-10-11] MEDS: TAMSULOSIN 0.4 MG CAP.ER.24H. PO SCH (08:36)
[2020-10-11] MEDS: CHOLESTYRAMINE/ASPARTAME 4 GM PACKET PO SCH ×2 (08:41→20:40)
[2020-10-11 15:42] VITALS: BP 129/77
[2020-10-11 16:54] LABS: BASO # 0.1 x10^3/uL (0.0-0.2); BASO % 1 % (0-3); EOS # 0.2 x10^3/uL (0.0-0.7); EOS % 4 % (0-3); HEMATOCRIT 38.1 % (39.0-53.0); HEMOGLOBIN 11.9 g/dL (13.0-17.5); LYMPH # 1.3 x10^3/uL (1.0-4.8); LYMPH % 26 % (24-48); MEAN CORPUSCULAR HEMOGLOBIN 24 pg (25-35); MEAN CORPUSCULAR HGB CONC 31 g/dL (31-37); MEAN CORPUSCULAR VOLUME 78 fL (79-100); MONO # 0.5 x10^3/uL (0.0-1.1); MONO % 10 % (0-9); NEUT % 59 % (31-73); PLATELET COUNT 198 x10^3/uL (140-400); RED BLOOD COUNT 4.91 x10^6/uL (4.30-5.70); RED CELL DISTRIBUTION WIDTH 17.9 % (11.5-14.5); WHITE BLOOD COUNT 5.1 x10^3/uL (4.0-11.0)
[2020-10-11 17:04] LABS: ALBUMIN 2.8 g/dL (3.4-5.0); ALBUMIN/GLOBULIN RATIO 0.6 (1.0-1.7); CALCIUM 8.9 mg/dL (8.5-10.1); CREATININE 1.1 mg/dL (0.7-1.3); GFR 65.6; POTASSIUM 4.8 mmol/L (3.5-5.1); TOTAL BILIRUBIN 0.3 mg/dL (0.2-1.0); TOTAL PROTEIN 7.2 g/dL (6.4-8.2)
[2020-10-11] MEDS: MIRTAZAPINE 7.5 MG TABLET. PO SCH (20:40)
[2020-10-11] MEDS: OLANZapine 2.5 MG TABLET PO SCH (20:40)
[2020-10-11] MEDS: QUEtiapine 50 MG TABLET. PO SCH (20:41)
--- NOTE | 2020-10-11 20:57 | PDOC ---
Exam Note: Richy Note: Please also refer to the separate dictated note~for this date of service dictated separately.~Patient seen individually. Discussed the patient with Nursing staff reviewed the chart.~Reviewed interim history and current functioning. Reviewed vital signs,~Labs/ Radiology~and current medications noted below. Continue current treatment with the changes noted in the dictated addendum note Assessment: Vital Signs/I&O: Vital Signs Date Time Temp Pulse Resp B/P (MAP) Pulse Ox O2 Delivery O2 Flow Rate FiO2 10/11/20 20:40 84 129/77 10/11/20 15:42 97.9 18 98 10/07/20 06:09 Room Air I & O 10/10/20 10/10/20 10/11/20 15:00 23:00 07:00 Intake Total 840 ml 480 ml Balance 840 ml 480 ml Labs: Laboratory Tests Test 10/11/20 07:52 10/11/20 12:02 10/11/20 16:43 10/11/20 16:58 Glucose (Fingerstick) 115 mg/dL (70-99) H 151 mg/dL (70-99) H 158 mg/dL (70-99) H White Blood Count 5.1 x10^3/uL (4.0-11.0) Red Blood Count 4.91 x10^6/uL (4.30-5.70) Hemoglobin 11.9 g/dL (13.0-17.5) L Hematocrit 38.1 % (39.0-53.0) L Mean Corpuscular Volume 78 fL (79-100) L Mean Corpuscular Hemoglobin 24 pg (25-35) L Mean Corpuscular Hemoglobin Concent 31 g/dL (31-37) Red Cell Distribution Width 17.9 % (11.5-14.5) H Platelet Count 198 x10^3/uL (140-400) Neutrophils (%) (Auto) 59 % (31-73) Lymphocytes (%) (Auto) 26 % (24-48) Monocytes (%) (Auto) 10 % (0-9) H Eosinophils (%) (Auto) 4 % (0-3) H Basophils (%) (Auto) 1 % (0-3) Neutrophils # (Auto) 3.0 x10^3uL (1.8-7.7) Lymphocytes # (Auto) 1.3 x10^3/uL (1.0-4.8) Monocytes # (Auto) 0.5 x10^3/uL (0.0-1.1) Eosinophils # (Auto) 0.2 x10^3/uL (0.0-0.7) Basophils # (Auto) 0.1 x10^3/uL (0.0-0.2) Sodium Level 140 mmol/L (136-145) Potassium Level 4.8 mmol/L (3.5-5.1) Chloride Level 105 mmol/L (98-107) Carbon Dioxide Level 27 mmol/L (21-32) Anion Gap 8 (6-14) Blood Urea Nitrogen 16 mg/dL (8-26) Creatinine 1.1 mg/dL (0.7-1.3) Estimated GFR (Cockcroft-Gault) 65.6 BUN/Creatinine Ratio 15 (6-20) Glucose Level 170 mg/dL (70-99) H Calcium Level 8.9 mg/dL (8.5-10.1) Total Bilirubin 0.3 mg/dL (0.2-1.0) Aspartate Amino Transferase (AST) 22 U/L (15-37) Alanine Aminotransferase (ALT) 19 U/L (16-63) Alkaline Phosphatase 130 U/L (46-116) H Total Protein 7.2 g/dL (6.4-8.2) Albumin 2.8 g/dL (3.4-5.0) L Albumin/Globulin Ratio 0.6 (1.0-1.7) L Test 10/11/20 19:38 Glucose (Fingerstick) 148 mg/dL (70-99) H Current Medications: I have reviewed the current psychotropics carefully including drug interactions. Risk benefit ratio favors no change other than as noted in my dictated progress note. Diagnosis: Problems: (1) Impulse control disorder, unspecified (2) Anxiety disorder, unspecified (3) Dementia, vascular, with depression (4) Dementia, vascular, with delusions (5) Dementia in Alzheimer's disease with depression (6) Dementia in Alzheimer's disease with delusions (7) Dementia of the Alzheimer's type with early onset with behavioral disturbance (8) Major neurocognitive disorder MAYURI ANDERSEN MD Oct 11, 2020 20:57
[2020-10-12 05:56] VITALS: BP 145/79
[2020-10-12] MEDS: ASPIRIN CHEWABLE 81 MG TABLET. PO SCH (07:27)
[2020-10-12] MEDS: CHOLESTYRAMINE/ASPARTAME 4 GM PACKET PO SCH ×2 (07:27→20:17)
[2020-10-12] MEDS: DIVALPROEX 125 MG CAP.SPRINK PO SCH ×2 (07:27→16:54)
[2020-10-12] MEDS: FAMOTIDINE 20 MG TABLET PO SCH ×2 (07:27→20:17)
[2020-10-12] MEDS: LACTOBACILLUS RHAMNOSUS GG 1 CAPSULE. PO SCH ×2 (07:28→20:16)
[2020-10-12] MEDS: POTASSIUM CHLORIDE 20 MEQ TABLET.ER. PO SCH (07:28)
[2020-10-12] MEDS: METOPROLOL TART IMMED RELEASE 25 MG TABLET. PO SCH ×2 (07:28→20:18)
[2020-10-12] MEDS: APIXABAN 5 MG TABLET. PO SCH ×2 (07:29→20:15)
[2020-10-12] MEDS: TAMSULOSIN 0.4 MG CAP.ER.24H. PO SCH (07:29)
[2020-10-12] MEDS: INSULIN LISPRO 300 UNITS/3 ML VIAL. SQ SCH ×3 (07:50→16:58)
[2020-10-12] MEDS ORDERED: DIVA125C2 PO ×2 (12:27→12:29)
[2020-10-12] MEDS ORDERED: QUET25TA5 PO (12:31)
[2020-10-12] MEDS ORDERED: CHOL500021 PO (12:35)
[2020-10-12] MEDS ORDERED: MAGN24003 PO (12:37)
[2020-10-12] MEDS ORDERED: MAG-95 PO (12:40)
[2020-10-12] MEDS ORDERED: METH57CR17 TP (12:46)
[2020-10-12 15:27] VITALS: BP 103/62
[2020-10-12] MEDS: OLANZapine 2.5 MG TABLET PO SCH (20:15)
[2020-10-12] MEDS: QUEtiapine 50 MG TABLET. PO SCH (20:16)
[2020-10-12] MEDS: MIRTAZAPINE 7.5 MG TABLET. PO SCH (20:16)
[2020-10-12] MEDS: ACETAMINOPHEN 325 MG TABLET PO PRN (20:17)
--- NOTE | 2020-10-12 20:53 | PDOC ---
Exam Note: Richy Note: Please also refer to the separate dictated note~for this date of service dictated separately.~Patient seen individually. Discussed the patient with Nursing staff reviewed the chart.~Reviewed interim history and current functioning. Reviewed vital signs,~Labs/ Radiology~and current medications noted below. Continue current treatment with the changes noted in the dictated addendum note Assessment: Vital Signs/I&O: Vital Signs Date Time Temp Pulse Resp B/P (MAP) Pulse Ox O2 Delivery O2 Flow Rate FiO2 10/12/20 20:18 90 103/62 10/12/20 15:27 98.0 16 98 Room Air I & O 10/11/20 10/11/20 10/12/20 15:00 23:00 07:00 Intake Total 600 ml 360 ml 120 ml Balance 600 ml 360 ml 120 ml Labs: Laboratory Tests Test 10/12/20 07:46 10/12/20 11:40 10/12/20 16:30 10/12/20 19:18 Glucose (Fingerstick) 119 mg/dL (70-99) H 136 mg/dL (70-99) H 135 mg/dL (70-99) H 138 mg/dL (70-99) H Current Medications: I have reviewed the current psychotropics carefully including drug interactions. Risk benefit ratio favors no change other than as noted in my dictated progress note. Diagnosis: Problems: (1) Impulse control disorder, unspecified (2) Anxiety disorder, unspecified (3) Dementia, vascular, with depression (4) Dementia, vascular, with delusions (5) Dementia in Alzheimer's disease with depression (6) Dementia in Alzheimer's disease with delusions (7) Dementia of the Alzheimer's type with early onset with behavioral disturbance (8) Major neurocognitive disorder MAYURI ANDERSEN MD Oct 12, 2020 20:53
[2020-10-13 06:00] VITALS: BP 119/71
[2020-10-13] MEDS: FAMOTIDINE 20 MG TABLET PO SCH ×2 (08:35→20:32)
[2020-10-13] MEDS: CHOLESTYRAMINE/ASPARTAME 4 GM PACKET PO SCH ×2 (08:35→20:32)
[2020-10-13] MEDS: DIVALPROEX 125 MG CAP.SPRINK PO SCH ×2 (08:35→17:00)
[2020-10-13] MEDS: TAMSULOSIN 0.4 MG CAP.ER.24H. PO SCH (08:36)
[2020-10-13] MEDS: POTASSIUM CHLORIDE 20 MEQ TABLET.ER. PO SCH (08:36)
[2020-10-13] MEDS: METOPROLOL TART IMMED RELEASE 25 MG TABLET. PO SCH ×2 (08:36→20:33)
[2020-10-13] MEDS: ASPIRIN CHEWABLE 81 MG TABLET. PO SCH (08:36)
[2020-10-13] MEDS: LACTOBACILLUS RHAMNOSUS GG 1 CAPSULE. PO SCH ×2 (08:37→20:33)
[2020-10-13] MEDS: APIXABAN 5 MG TABLET. PO SCH ×2 (08:37→20:32)
[2020-10-13] MEDS: INSULIN LISPRO 300 UNITS/3 ML VIAL. SQ SCH ×3 (08:39→17:00)
[2020-10-13 16:03] VITALS: BP 113/72
[2020-10-13] MEDS: MIRTAZAPINE 7.5 MG TABLET. PO SCH (20:32)
[2020-10-13] MEDS: OLANZapine 2.5 MG TABLET PO SCH (20:34)
[2020-10-13] MEDS: QUEtiapine 50 MG TABLET. PO SCH (20:34)
[2020-10-14 05:55] VITALS: BP_SYST 115; BP_SYST 145; BP_DIAS 73; BP_DIAS 98
[2020-10-14] MEDS: LACTOBACILLUS RHAMNOSUS GG 1 CAPSULE. PO SCH ×2 (07:58→19:54)
[2020-10-14] MEDS: DIVALPROEX 125 MG CAP.SPRINK PO SCH ×2 (07:58→17:00)
[2020-10-14] MEDS: TAMSULOSIN 0.4 MG CAP.ER.24H. PO SCH (07:58)
[2020-10-14] MEDS: FAMOTIDINE 20 MG TABLET PO SCH ×2 (07:58→19:55)
[2020-10-14] MEDS: APIXABAN 5 MG TABLET. PO SCH ×2 (07:58→19:55)
[2020-10-14] MEDS: CHOLESTYRAMINE/ASPARTAME 4 GM PACKET PO SCH ×2 (07:58→19:54)
[2020-10-14] MEDS: ASPIRIN CHEWABLE 81 MG TABLET. PO SCH (07:58)
[2020-10-14] MEDS: POTASSIUM CHLORIDE 20 MEQ TABLET.ER. PO SCH (07:59)
[2020-10-14] MEDS: METOPROLOL TART IMMED RELEASE 25 MG TABLET. PO SCH ×2 (08:00→19:56)
[2020-10-14] MEDS: INSULIN LISPRO 300 UNITS/3 ML VIAL. SQ SCH ×3 (08:00→17:00)
--- NOTE | 2020-10-14 10:11 | PDOC ---
Exam Note: Richy Note: Please ignore the 10/10/2020 note as it is an error.Please also refer to the separate dictated note~for this date of service dictated separately.~Patient seen individually. Discussed the patient with Nursing staff reviewed the chart.~Reviewed interim history and current functioning. Reviewed vital signs,~Labs/ Radiology~and current medications noted below. Continue current treatment with the changes noted in the dictated addendum note Assessment: Vital Signs/I&O: Vital Signs Date Time Temp Pulse Resp B/P (MAP) Pulse Ox O2 Delivery O2 Flow Rate FiO2 10/14/20 08:00 88 115/73 10/14/20 05:55 97.7 18 96 10/12/20 15:27 Room Air I & O 10/13/20 10/13/20 10/14/20 15:59 23:59 07:59 Intake Total 720 ml 360 ml Balance 720 ml 360 ml Labs: Laboratory Tests Test 10/13/20 11:44 10/13/20 16:59 10/13/20 19:08 10/14/20 07:46 Glucose (Fingerstick) 138 mg/dL (70-99) H 116 mg/dL (70-99) H 168 mg/dL (70-99) H 107 mg/dL (70-99) H Current Medications: I have reviewed the current psychotropics carefully including drug interactions. Risk benefit ratio favors no change other than as noted in my dictated progress note. Diagnosis: Problems: (1) Impulse control disorder, unspecified (2) Anxiety disorder, unspecified (3) Dementia, vascular, with depression (4) Dementia, vascular, with delusions (5) Dementia in Alzheimer's disease with depression (6) Dementia in Alzheimer's disease with delusions (7) Dementia of the Alzheimer's type with early onset with behavioral disturbance (8) Major neurocognitive disorder MAYURI ANDERSEN MD Oct 14, 2020 10:11
--- NOTE | 2020-10-14 10:12 | PDOC ---
Exam Note: Richy Note: This note is a late entry and corrected note for 10/10/2020 covers elements not covered in my initial note. Subjective: The patient was seen on telehealth rounds in the evening of 07/2020 with Delilah PERERA as the unit is on a lockdown by the [facility] of COVID-19 exposure on the unit with no admission or discharges can be done. Discussed with nursing staff, reviewed the chart. Patient was confused, urinated on the floor in the bedroom, unable to get to the restroom. He blames the nursing staff for not assisting him. I addressed this with him. He slept 7 hours previous night. Review of Systems: Ambulation impaired in wheelchair. No CV, , pulmonary, eye, ENT system symptoms on review. Mental Status Exam: The patient is oriented to himself and situation. Speech has been coherent. Abstraction is fair. Computation is impaired. Language function intact. Attention span is short. Mood and affect is improved. No suicidal or homicidal ideation. Laboratory Data: Reviewed. Impression: Major neurocognitive disorder Alzheimer vascular with delusion, depression, behavioral disturbance. Anxiety disorder unspecified. Impulse control disorder unspecified. Plan: Continue psychotropics from initial note. Assessment: Vital Signs/I&O: Vital Signs Date Time Temp Pulse Resp B/P (MAP) Pulse Ox O2 Delivery O2 Flow Rate FiO2 10/14/20 08:00 88 115/73 10/14/20 05:55 97.7 18 96 10/12/20 15:27 Room Air I & O 10/13/20 10/13/20 10/14/20 15:59 23:59 07:59 Intake Total 720 ml 360 ml Balance 720 ml 360 ml Labs: Laboratory Tests Test 10/13/20 11:44 10/13/20 16:59 10/13/20 19:08 10/14/20 07:46 Glucose (Fingerstick) 138 mg/dL (70-99) H 116 mg/dL (70-99) H 168 mg/dL (70-99) H 107 mg/dL (70-99) H Current Medications: I have reviewed the current psychotropics carefully including drug interactions. Risk benefit ratio favors no change other than as noted in my dictated progress note. Diagnosis: Problems: (1) Impulse control disorder, unspecified (2) Anxiety disorder, unspecified (3) Dementia, vascular, with depression (4) Dementia, vascular, with delusions (5) Dementia in Alzheimer's disease with depression (6) Dementia in Alzheimer's disease with delusions (7) Dementia of the Alzheimer's type with early onset with behavioral disturbance (8) Major neurocognitive disorder MAYURI ANDERSEN MD Oct 14, 2020 10:12
[2020-10-14 15:48] VITALS: BP 95/64
[2020-10-14] MEDS: OLANZapine 2.5 MG TABLET PO SCH (19:54)
[2020-10-14] MEDS: MIRTAZAPINE 7.5 MG TABLET. PO SCH (19:55)
[2020-10-14] MEDS: QUEtiapine 50 MG TABLET. PO SCH (19:56)
--- NOTE | 2020-10-14 20:58 | PDOC ---
Exam Note: Richy Note: This note is a late entry for 10/11/2020 covers elements not covered in my initial note. Subjective: The patient was reviewed on telehealth rounds in the evening of 10/11/2020 with Herminio PERERA as the unit is on a lockdown by the [facility] of COVID-19 exposure on the unit with no admission or discharges can be done. Discussed with nursing staff, reviewed the chart. He slept 6-3/4 hours previous night. He gets intermittently agitated with another patient on the unit. I addressed this with him in ways to distract himself, so he does not get agitated. He was fairly cooperative. He gets a little irritable with cares. Review of Systems: Ambulation impaired in wheelchair. No CV, , pulmonary, eye, ENT system symptoms on review. Mental Status Exam: The patient is oriented to himself and situation. He fairly cooperative. Speech is coherent. Abstraction is fair, somewhat distractible. Computation is impaired. Language function intact. Attention span is short. Mood and affect is improved. No suicidal or homicidal ideation. Laboratory Data: Reviewed. Valproic acid level therapeutic at 51. Impression: Major neurocognitive disorder Alzheimer vascular with delusion, depression, behavioral disturbance. Anxiety disorder unspecified. Impulse control disorder unspecified. Plan: Continue psychotropics from initial note. Assessment: Vital Signs/I&O: Vital Signs Date Time Temp Pulse Resp B/P (MAP) Pulse Ox O2 Delivery O2 Flow Rate FiO2 10/14/20 19:56 80 95/64 10/14/20 15:48 97.2 20 99 10/12/20 15:27 Room Air I & O 10/13/20 10/13/20 10/14/20 15:00 23:00 07:00 Intake Total 720 ml 360 ml Balance 720 ml 360 ml Labs: Laboratory Tests Test 10/14/20 07:46 10/14/20 12:03 10/14/20 17:07 10/14/20 19:21 Glucose (Fingerstick) 107 mg/dL (70-99) H 138 mg/dL (70-99) H 147 mg/dL (70-99) H 166 mg/dL (70-99) H Current Medications: I have reviewed the current psychotropics carefully including drug interactions. Risk benefit ratio favors no change other than as noted in my dictated progress note. Diagnosis: Problems: (1) Impulse control disorder, unspecified (2) Anxiety disorder, unspecified (3) Dementia, vascular, with depression (4) Dementia, vascular, with delusions (5) Dementia in Alzheimer's disease with depression (6) Dementia in Alzheimer's disease with delusions (7) Dementia of the Alzheimer's type with early onset with behavioral di sturbance (8) Major neurocognitive disorder MAYURI ANDERSEN MD Oct 14, 2020 20:58
[2020-10-14] MEDS: MELATONIN 3 MG TABLET PO PRN (21:08)
--- NOTE | 2020-10-14 21:20 | PDOC ---
Exam Note: Richy Note: This note is a late entry for 10/12/2020 covers elements not covered in my initial note. Subjective: The patient was reviewed on telehealth rounds in the evening of 10/12/2020 with Cristi PERERA. [facility] has opened up the unit for admission and discharges following quarantine for Covid-19 exposure. Discussed with nursing staff, reviewed the chart. He slept 6-1/2 hours previous night. He got agitated with Heidi PERERA in the morning and then did better rest of the day. Review of Systems: Ambulation impaired in wheelchair. No CV, , pulmonary, eye, ENT system symptoms on review. Mental Status Exam: The patient is oriented to himself and situation. Speech is coherent, less pressured. Abstraction is fair. Computation is impaired. Language function intact. Attention span is somewhat short. Mood and affect lability is improved. Laboratory Data: Reviewed. Impression: Major neurocognitive disorder Alzheimer vascular with delusion, depression, behavioral disturbance. Anxiety disorder unspecified. Impulse control disorder unspecified. Plan: Continue psychotropics from initial note Assessment: Vital Signs/I&O: Vital Signs Date Time Temp Pulse Resp B/P (MAP) Pulse Ox O2 Delivery O2 Flow Rate FiO2 10/14/20 19:56 80 95/64 10/14/20 15:48 97.2 20 99 10/12/20 15:27 Room Air I & O 10/13/20 10/13/20 10/14/20 15:00 23:00 07:00 Intake Total 720 ml 360 ml Balance 720 ml 360 ml Labs: Laboratory Tests Test 10/14/20 07:46 10/14/20 12:03 10/14/20 17:07 10/14/20 19:21 Glucose (Fingerstick) 107 mg/dL (70-99) H 138 mg/dL (70-99) H 147 mg/dL (70-99) H 166 mg/dL (70-99) H Current Medications: I have reviewed the current psychotropics carefully including drug interactions. Risk benefit ratio favors no change other than as noted in my dictated progress note. Diagnosis: Problems: (1) Impulse control disorder, unspecified (2) Anxiety disorder, unspecified (3) Dementia, vascular, with depression (4) Dementia, vascular, with delusions (5) Dementia in Alzheimer's disease with depression (6) Dementia in Alzheimer's disease with delusions (7) Dementia of the Alzheimer's type with early onset with behavioral disturbance (8) Major neurocognitive disorder MAYURI ANDERSEN MD Oct 14, 2020 21:20
--- NOTE | 2020-10-14 21:59 | PDOC ---
Exam Note: Richy Note: Please also refer to the separate dictated note~for this date of service dictated separately.~Patient seen individually. Discussed the patient with Nursing staff reviewed the chart.~Reviewed interim history and current functioning. Reviewed vital signs,~Labs/ Radiology~and current medications noted below. Continue current treatment with the changes noted in the dictated addendum note Assessment: Vital Signs/I&O: Vital Signs Date Time Temp Pulse Resp B/P (MAP) Pulse Ox O2 Delivery O2 Flow Rate FiO2 10/14/20 19:56 80 95/64 10/14/20 15:48 97.2 20 99 10/12/20 15:27 Room Air I & O 10/13/20 10/13/20 10/14/20 15:00 23:00 07:00 Intake Total 720 ml 360 ml Balance 720 ml 360 ml Labs: Laboratory Tests Test 10/14/20 07:46 10/14/20 12:03 10/14/20 17:07 10/14/20 19:21 Glucose (Fingerstick) 107 mg/dL (70-99) H 138 mg/dL (70-99) H 147 mg/dL (70-99) H 166 mg/dL (70-99) H Current Medications: I have reviewed the current psychotropics carefully including drug interactions. Risk benefit ratio favors no change other than as noted in my dictated progress note. Diagnosis: Problems: (1) Impulse control disorder, unspecified (2) Anxiety disorder, unspecified (3) Dementia, vascular, with depression (4) Dementia, vascular, with delusions (5) Dementia in Alzheimer's disease with depression (6) Dementia in Alzheimer's disease with delusions (7) Dementia of the Alzheimer's type with early onset with behavioral disturbance (8) Major neurocognitive disorder MAYURI ANDERSEN MD Oct 14, 2020 21:59
[2020-10-15 06:06] VITALS: BP 117/74
[2020-10-15] MEDS: INSULIN LISPRO 300 UNITS/3 ML VIAL. SQ SCH ×3 (08:00→17:00)
--- NOTE | 2020-10-15 08:04 | PDOC ---
Exam Note: Richy Note: This note is a late entry for 10/13/2020 covers elements not covered in my initial note. Subjective: The patient was reviewed on telehealth rounds in the evening of 10/13/2020 with Jeniffer PERERA. The [facility] has opened up the unit for admission and discharges following quarantine for Covid-19 exposure. The [facility] Department has opened up the unit for admission and discharges following quarantine for Covid-19 exposure. Discussed with nursing staff, reviewed the chart. He slept 7 hours previous night. He has been talking about wanting to go home. He states he will hire help to assist him and he wants to be at home with his . I addressed pros and cons of this. Review of Systems: Ambulation impaired in wheelchair. No CV, , pulmonary, eye, ENT system symptoms on review. Mental Status Exam: The patient is oriented to himself and situation. He is pleasant, cooperative. We addressed some of his aggression, agitation, mood lability, prompting admission. He is able to verbalize how he is controlling it better. Speech is coherent, less pressured. Abstraction is fair. Computation is impaired. Language function intact. Attention span is somewhat short. Mood and affect lability is improved. Laboratory Data: Reviewed. Impression: Major neurocognitive disorder Alzheimer vascular with delusion, depression, behavioral disturbance. Anxiety disorder unspecified. Impulse control disorder unspecified. Plan: Continue psychotropics from initial note. Assessment: Vital Signs/I&O: Vital Signs Date Time Temp Pulse Resp B/P (MAP) Pulse Ox O2 Delivery O2 Flow Rate FiO2 10/15/20 06:06 97.7 82 18 117/74 (88) 97 Room Air I & O 10/14/20 10/14/20 10/15/20 15:00 23:00 07:00 Intake Total 200 ml 320 ml Balance 200 ml 320 ml Labs: Laboratory Tests Test 10/14/20 12:03 10/14/20 17:07 10/14/20 19:21 Glucose (Fingerstick) 138 mg/dL (70-99) H 147 mg/dL (70-99) H 166 mg/dL (70-99) H Current Medications: I have reviewed the current psychotropics carefully including drug interactions. Risk benefit ratio favors no change other than as noted in my dictated progress note. Diagnosis: Problems: (1) Impulse control disorder, unspecified (2) Anxiety disorder, unspecified (3) Dementia, vascular, with depression (4) Dementia, vascular, with delusions (5) Dementia in Alzheimer's disease with depression (6) Dementia in Alzheimer's disease with delusions (7) Dementia of the Alzheimer's type with early onset with behavioral disturbance (8) Major neurocognitive disorder MAYURI ANDERSEN MD Oct 15, 2020 08:04
[2020-10-15] MEDS: LACTOBACILLUS RHAMNOSUS GG 1 CAPSULE. PO SCH ×2 (08:17→20:29)
[2020-10-15] MEDS: FAMOTIDINE 20 MG TABLET PO SCH ×2 (08:18→20:31)
[2020-10-15] MEDS: TAMSULOSIN 0.4 MG CAP.ER.24H. PO SCH (08:18)
[2020-10-15] MEDS: POTASSIUM CHLORIDE 20 MEQ TABLET.ER. PO SCH (08:18)
[2020-10-15] MEDS: APIXABAN 5 MG TABLET. PO SCH ×2 (08:18→20:31)
[2020-10-15] MEDS: METOPROLOL TART IMMED RELEASE 25 MG TABLET. PO SCH ×2 (08:18→20:29)
--- NOTE | 2020-10-15 08:18 | PDOC ---
Exam Note: Richy Note: This note is a late entry for 10/14/2020 covers elements not covered in my initial note. Subjective: The patient was reviewed on telehealth rounds in the evening of 10/14/2020 with Jeniffer PERERA. The [facility] Department has opened up the unit for admission and discharges following quarantine for Covid-19 exposure. Discussed with nursing staff, reviewed the chart. He slept 5-1/2 hours previous night. Overall he is doing better, more interactive, less agitated with the other patient on the unit. Review of Systems: Ambulation impaired in wheelchair. No CV, , pulmonary, eye system symptoms on review. Mental Status Exam: The patient is oriented to himself and situation. He is pleasant, cooperative, verbal but again fixated on wanting to go home. We briefly discussed transition back to the retirement and he does not want to do that. Speech is coherent, less pressured. Abstraction is fair. Computation is impaired. Language function intact. Attention span is somewhat short. Mood and affect lability is improved. No suicidal or homicidal ideation. Laboratory Data: Reviewed. Impression: Major neurocognitive disorder Alzheimer vascular with delusion, depression, behavioral disturbance. Anxiety disorder unspecified. Impulse control disorder unspecified. Plan: Continue psychotropics from initial note and as noted above. Assessment: Vital Signs/I&O: Vital Signs Date Time Temp Pulse Resp B/P (MAP) Pulse Ox O2 Delivery O2 Flow Rate FiO2 10/15/20 06:06 97.7 82 18 117/74 (88) 97 Room Air I & O 10/14/20 10/14/20 10/15/20 15:00 23:00 07:00 Intake Total 200 ml 320 ml Balance 200 ml 320 ml Labs: Laboratory Tests Test 10/14/20 12:03 10/14/20 17:07 10/14/20 19:21 Glucose (Fingerstick) 138 mg/dL (70-99) H 147 mg/dL (70-99) H 166 mg/dL (70-99) H Current Medications: I have reviewed the current psychotropics carefully including drug interactions. Risk benefit ratio favors no change other than as noted in my dictated progress note. Diagnosis: Problems: (1) Impulse control disorder, unspecified (2) Anxiety disorder, unspecified (3) Dementia, vascular, with depression (4) Dementia, vascular, with delusions (5) Dementia in Alzheimer's disease with depression (6) Dementia in Alzheimer's disease with delusions (7) Dementia of the Alzheimer's type with early onset with behavioral disturbance (8) Major neurocognitive disorder MAYURI ANDERSEN MD Oct 15, 2020 08:18
[2020-10-15] MEDS: CHOLESTYRAMINE/ASPARTAME 4 GM PACKET PO SCH ×2 (08:19→20:31)
[2020-10-15] MEDS: CHOLECALCIFEROL (VITAMIN D3) 50,000 UNIT CAPSULE PO SCH (08:19)
[2020-10-15] MEDS: DIVALPROEX 125 MG CAP.SPRINK PO SCH ×2 (08:19→17:15)
[2020-10-15] MEDS: ASPIRIN CHEWABLE 81 MG TABLET. PO SCH (08:19)
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
[2020-10-15 15:50] VITALS: BP 122/73
[2020-10-15] MEDS: MIRTAZAPINE 7.5 MG TABLET. PO SCH (20:29)
[2020-10-15] MEDS: QUEtiapine 50 MG TABLET. PO SCH (20:31)
[2020-10-15] MEDS: OLANZapine 2.5 MG TABLET PO SCH (20:32)
--- NOTE | 2020-10-15 21:06 | PDOC ---
Exam Note: Richy Note: Please also refer to the separate dictated note~for this date of service dictated separately.~Patient seen individually. Discussed the patient with Nursing staff reviewed the chart.~Reviewed interim history and current functioning. Reviewed vital signs,~Labs/ Radiology~and current medications noted below. Continue current treatment with the changes noted in the dictated addendum note Assessment: Vital Signs/I&O: Vital Signs Date Time Temp Pulse Resp B/P (MAP) Pulse Ox O2 Delivery O2 Flow Rate FiO2 10/15/20 20:29 63 122/73 10/15/20 15:50 98.2 17 99 10/15/20 06:06 Room Air I & O 10/14/20 10/14/20 10/15/20 14:59 22:59 06:59 Intake Total 200 ml 320 ml Balance 200 ml 320 ml Labs: Laboratory Tests Test 10/15/20 08:14 10/15/20 11:51 10/15/20 16:44 10/15/20 19:38 Glucose (Fingerstick) 122 mg/dL (70-99) H 139 mg/dL (70-99) H 145 mg/dL (70-99) H 150 mg/dL (70-99) H Current Medications: I have reviewed the current psychotropics carefully including drug interactions. Risk benefit ratio favors no change other than as noted in my dictated progress note. Diagnosis: Problems: (1) Impulse control disorder, unspecified (2) Anxiety disorder, unspecified (3) Dementia, vascular, with depression (4) Dementia, vascular, with delusions (5) Dementia in Alzheimer's disease with depression (6) Dementia in Alzheimer's disease with delusions (7) Dementia of the Alzheimer's type with early onset with behavioral disturbance (8) Major neurocognitive disorder MAYURI ANDERSEN MD Oct 15, 2020 21:06
[2020-10-16 06:30] VITALS: BP 98/66
--- NOTE | 2020-10-16 07:36 | PDOC ---
Exam Note: Richy Note: This note is a late entry for 10/15/2020 covers elements not covered in my initial note. Subjective: The patient was reviewed on telehealth rounds in the morning of 10/15/2020 for treatment team meeting with Nasim (social worker delinquency prevention), Jennifer, activity therapy, and Heidi RN. The Health Department has opened up the unit for admission and discharges following quarantine for Covid-19 exposure. Discussed with nursing staff, reviewed the chart. He slept 7 hours previous night. The patient has been talking about wanting to go home but staff have addressed his transition to assisted and I did that as well. He is accepting of it. Review of Systems: Ambulation impaired in wheelchair. No CV, , pulmonary, eye system symptoms on review. Mental Status Exam: The patient is oriented to himself and situation. Speech is coherent, has some latency. Abstraction is fair. Computation is impaired. Language function intact. Attention span is somewhat short. Mood and affect is improved. No suicidal or homicidal ideation. Laboratory Data: Reviewed. Impression: Major neurocognitive disorder Alzheimer vascular with delusion, depression, behavioral disturbance. Anxiety disorder unspecified. Impulse control disorder unspecified. Plan: Continue psychotropics from initial note. Assessment: Vital Signs/I&O: Vital Signs Date Time Temp Pulse Resp B/P (MAP) Pulse Ox O2 Delivery O2 Flow Rate FiO2 10/16/20 06:30 97.8 72 18 98/66 (77) 97 10/15/20 06:06 Room Air I & O 0 10/15/20 10/15/20 10/16/20 15:00 23:00 07:00 Intake Total 1270 ml 480 ml Balance 1270 ml 480 ml Labs: Laboratory Tests Test 10/15/20 08:14 10/15/20 11:51 10/15/20 16:44 10/15/20 19:38 Glucose (Fingerstick) 122 mg/dL (70-99) H 139 mg/dL (70-99) H 145 mg/dL (70-99) H 150 mg/dL (70-99) H Current Medications: I have reviewed the current psychotropics carefully including drug interactions. Risk benefit ratio favors no change other than as noted in my dictated progress note. Diagnosis: Problems: (1) Impulse control disorder, unspecified (2) Anxiety disorder, unspecified (3) Dementia, vascular, with depression (4) Dementia, vascular, with delusions (5) Dementia in Alzheimer's disease with depression (6) Dementia in Alzheimer's disease with delusions (7) Dementia of the Alzheimer's type with early onset with behavioral disturbance (8) Major neurocognitive disorder MAYURI ANDERSEN MD Oct 16, 2020 07:36
[2020-10-16] MEDS: INSULIN LISPRO 300 UNITS/3 ML VIAL. SQ SCH ×3 (08:00→17:00)
[2020-10-16] MEDS: DIVALPROEX 125 MG CAP.SPRINK PO SCH ×2 (08:58→17:14)
[2020-10-16] MEDS: APIXABAN 5 MG TABLET. PO SCH ×2 (08:59→19:35)
[2020-10-16] MEDS: FAMOTIDINE 20 MG TABLET PO SCH ×2 (08:59→19:35)
[2020-10-16] MEDS: POTASSIUM CHLORIDE 20 MEQ TABLET.ER. PO SCH (08:59)
[2020-10-16] MEDS: METOPROLOL TART IMMED RELEASE 25 MG TABLET. PO SCH ×2 (08:59→19:35)
[2020-10-16] MEDS: LACTOBACILLUS RHAMNOSUS GG 1 CAPSULE. PO SCH ×2 (08:59→19:35)
[2020-10-16] MEDS: ASPIRIN CHEWABLE 81 MG TABLET. PO SCH (09:00)
[2020-10-16] MEDS: CHOLESTYRAMINE/ASPARTAME 4 GM PACKET PO SCH ×2 (09:00→19:37)
[2020-10-16] MEDS: TAMSULOSIN 0.4 MG CAP.ER.24H. PO SCH ×2 (09:00→19:35)
[2020-10-16] MEDS: ACETAMINOPHEN 325 MG TABLET PO PRN (09:53)
[2020-10-16 15:53] VITALS: BP 117/76
[2020-10-16] MEDS: MIRTAZAPINE 7.5 MG TABLET. PO SCH (19:33)
[2020-10-16] MEDS: OLANZapine 2.5 MG TABLET PO SCH (19:33)
[2020-10-16] MEDS: QUEtiapine 50 MG TABLET. PO SCH (19:36)
--- NOTE | 2020-10-16 20:52 | PDOC ---
Exam Note: Richy Note: Please also refer to the separate dictated note~for this date of service dictated separately.~Patient seen individually. Discussed the patient with Nursing staff reviewed the chart.~Reviewed interim history and current functioning. Reviewed vital signs,~Labs/ Radiology~and current medications noted below. Continue current treatment with the changes noted in the dictated addendum note Assessment: Vital Signs/I&O: Vital Signs Date Time Temp Pulse Resp B/P (MAP) Pulse Ox O2 Delivery O2 Flow Rate FiO2 10/16/20 19:35 91 117/76 10/16/20 15:53 98.3 18 98 Room Air I & O 10/15/20 10/15/20 10/16/20 15:00 23:00 07:00 Intake Total 1270 ml 480 ml Balance 1270 ml 480 ml Labs: Laboratory Tests Test 10/16/20 07:43 10/16/20 12:13 10/16/20 16:52 10/16/20 19:58 Glucose (Fingerstick) 104 mg/dL (70-99) H 92 mg/dL (70-99) 121 mg/dL (70-99) H 146 mg/dL (70-99) H Current Medications: I have reviewed the current psychotropics carefully including drug interactions. Risk benefit ratio favors no change other than as noted in my dictated progress note. Diagnosis: Problems: (1) Impulse control disorder, unspecified (2) Anxiety disorder, unspecified (3) Dementia, vascular, with depression (4) Dementia, vascular, with delusions (5) Dementia in Alzheimer's disease with depression (6) Dementia in Alzheimer's disease with delusions (7) Dementia of the Alzheimer's type with early onset with behavioral disturbance (8) Major neurocognitive disorder MAYURI ANDERSEN MD Oct 16, 2020 20:52
[2020-10-17 06:00] VITALS: BP 172/90
[2020-10-17] MEDS: METOPROLOL TART IMMED RELEASE 25 MG TABLET. PO SCH ×2 (06:20→20:29)
[2020-10-17] MEDS: INSULIN LISPRO 300 UNITS/3 ML VIAL. SQ SCH ×3 (08:00→17:00)
[2020-10-17] MEDS: FAMOTIDINE 20 MG TABLET PO SCH ×2 (08:55→20:28)
[2020-10-17] MEDS: APIXABAN 5 MG TABLET. PO SCH ×2 (08:55→20:28)
[2020-10-17] MEDS: ASPIRIN CHEWABLE 81 MG TABLET. PO SCH (08:55)
[2020-10-17] MEDS: DIVALPROEX 125 MG CAP.SPRINK PO SCH ×2 (08:55→17:50)
[2020-10-17] MEDS: CHOLESTYRAMINE/ASPARTAME 4 GM PACKET PO SCH ×2 (08:55→20:27)
[2020-10-17] MEDS: LACTOBACILLUS RHAMNOSUS GG 1 CAPSULE. PO SCH ×2 (08:55→20:28)
[2020-10-17] MEDS: POTASSIUM CHLORIDE 20 MEQ TABLET.ER. PO SCH (08:55)
--- NOTE | 2020-10-17 09:54 | PDOC ---
Exam Note: Richy Note: This note is a late entry for 10/16/2020 covers elements not covered in my initial note. Subjective: The patient was reviewed on telehealth rounds in the evening of 10/16/2020 with Natalie PERERA. Discussed with nursing staff, reviewed the chart. He slept 8-1/2 hours previous night. The patient had telephone conversation with his and is accepting of discharge back to longterm on . He is compliant with his medications. Review of Systems: Ambulation impaired in wheelchair. He complains of feeling cold in his fingertips. No CV, , pulmonary, eye system symptoms on review. Mental Status Exam: The patient is oriented to himself and situation. He is quite pleasant, verbal, interactive accepting of transition later this week. Speech is coherent, has some latency. Abstraction is fair. Computation is impaired. Language function intact. Attention span is somewhat short. Mood and affect is improved. No suicidal or homicidal ideation. Laboratory Data: Reviewed. Impression: Major neurocognitive disorder Alzheimer vascular with delusion, dep ression, behavioral disturbance. Anxiety disorder unspecified. Impulse control disorder unspecified. Plan: Continue psychotropics from initial note. Assessment: Vital Signs/I&O: Vital Signs Date Time Temp Pulse Resp B/P (MAP) Pulse Ox O2 Delivery O2 Flow Rate FiO2 10/17/20 06:20 81 172/90 10/17/20 06:00 98.0 16 97 Room Air I & O 10/16/20 10/16/20 10/17/20 15:00 23:00 07:00 Intake Total 480 ml 600 ml Balance 480 ml 600 ml Labs: Laboratory Tests Test 10/16/20 12:13 10/16/20 16:52 10/16/20 19:58 10/17/20 07:20 Glucose (Fingerstick) 92 mg/dL (70-99) 121 mg/dL (70-99) H 146 mg/dL (70-99) H 112 mg/dL (70-99) H Current Medications: I have reviewed the current psychotropics carefully including drug interactions. Risk benefit ratio favors no change other than as noted in my dictated progress note. Diagnosis: Problems: (1) Anxiety disorder, unspecified (2) Dementia, vascular, with depression (3) Dementia, vascular, with delusions (4) Dementia in Alzheimer's disease with depression (5) Dementia in Alzheimer's disease with delusions (6) Dementia of the Alzheimer's type with early onset with behavioral disturbance (7) Major neurocognitive disorder (8) Impulse control disorder, unspecified MAYURI ANDERSEN MD Oct 17, 2020 09:54
[2020-10-17 15:47] VITALS: BP 110/67
[2020-10-17] MEDS: QUEtiapine 50 MG TABLET. PO SCH (20:27)
[2020-10-17] MEDS: OLANZapine 2.5 MG TABLET PO SCH (20:28)
[2020-10-17] MEDS: MIRTAZAPINE 7.5 MG TABLET. PO SCH (20:28)
[2020-10-17] MEDS: MELATONIN 3 MG TABLET PO PRN (21:14)
[2020-10-18 05:59] VITALS: BP 100/60
[2020-10-18] MEDS: INSULIN LISPRO 300 UNITS/3 ML VIAL. SQ SCH (08:00)
[2020-10-18] MEDS: DIVALPROEX 125 MG CAP.SPRINK PO SCH (08:25)
[2020-10-18] MEDS: APIXABAN 5 MG TABLET. PO SCH (08:25)
[2020-10-18 08:26] VITALS: BP 100/60
[2020-10-18] MEDS: LACTOBACILLUS RHAMNOSUS GG 1 CAPSULE. PO SCH (08:26)
[2020-10-18] MEDS: TAMSULOSIN 0.4 MG CAP.ER.24H. PO SCH (08:26)
[2020-10-18] MEDS: CHOLESTYRAMINE/ASPARTAME 4 GM PACKET PO SCH (08:26)
[2020-10-18] MEDS: ASPIRIN CHEWABLE 81 MG TABLET. PO SCH (08:26)
[2020-10-18] MEDS: METOPROLOL TART IMMED RELEASE 25 MG TABLET. PO SCH (08:26)
[2020-10-18] MEDS: FAMOTIDINE 20 MG TABLET PO SCH (08:26)
[2020-10-18] MEDS: POTASSIUM CHLORIDE 20 MEQ TABLET.ER. PO SCH (08:26)
--- NOTE | 2020-10-18 22:32 | PDOC ---
Exam Note: Richy Note: This is a late entry for 10/17/2020. Please also refer to the separate dictated note~for this date of service dictated separately.~Patient seen individually. Discussed the patient with Nursing staff reviewed the chart.~Reviewed interim history and current functioning. Reviewed vital signs,~Labs/ Radiology~and cur rent medications noted below. Continue current treatment with the changes noted in the dictated addendum note Assessment: Vital Signs/I&O: Vital Signs Date Time Temp Pulse Resp B/P (MAP) Pulse Ox O2 Delivery O2 Flow Rate FiO2 10/18/20 08:26 88 100/60 10/18/20 05:59 98.5 20 98 Room Air I & O 10/17/20 10/17/20 10/18/20 15:00 23:00 07:00 Intake Total 600 ml 480 ml Balance 600 ml 480 ml Labs: Laboratory Tests Test 10/18/20 07:47 Glucose (Fingerstick) 116 mg/dL (70-99) H Current Medications: I have reviewed the current psychotropics carefully including drug interactions. Risk benefit ratio favors no change other than as noted in my dictated progress note. Diagnosis: Problems: (1) Anxiety disorder, unspecified (2) Dementia, vascular, with depression (3) Dementia, vascular, with delusions (4) Dementia in Alzheimer's disease with depression (5) Dementia in Alzheimer's disease with delusions (6) Dementia of the Alzheimer's type with early onset with behavioral disturbance (7) Major neurocognitive disorder (8) Impulse control disorder, unspecified MAYURI ANDERSEN MD Oct 18, 2020 22:32
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
--- NOTE | 2020-10-19 07:52 | PDOC ---
Exam Note: Richy Note: This note is a late entry for 10/17/2020 covers elements not covered in my initial note. Subjective: The patient was reviewed on telehealth rounds in the evening of 10/17/2020 with Erich PERERA. Discussed with nursing staff, reviewed the chart. He slept 7-3/4 hours previous night. Overall the patient has been calm, pleasant, and cooperative. He had a lengthy telephone conversation with his and is wanting his niece to bring certain clothing and other objects to him to [facility] when he transitions there. [facility] He has not been agitated with one of the other patients. Review of Systems: Ambulation impaired in wheelchair. No CV, , pulmonary, eye system symptoms on review. Mental Status Exam: The patient is oriented to himself and situation. He is quite verbal, interactive, appropriate, pleasant. We discussed discharge plans coming up back to the correction and he was accepting of this and going back to [facility]. Speech is coherent, has some latency. Abstraction is fair. Computation is impaired. Language function intact. Attention span is somewhat short. Mood and affect is improved. No suicidal or homicidal ideation. Laboratory Data: Reviewed. Impression: Major neurocognitive disorder Alzheimer vascular with delusion, depression, behavioral disturbance. Anxiety disorder unspecified. Impulse control disorder unspecified. Plan: Continue psychotropics from initial note. Assessment: Vital Signs/I&O: Vital Signs Date Time Temp Pulse Resp B/P (MAP) Pulse Ox O2 Delivery O2 Flow Rate FiO2 10/18/20 08:26 88 100/60 10/18/20 05:59 98.5 20 98 Room Air I & O 10/18/20 10/18/20 10/19/20 15:00 23:00 07:00 Intake Total 240 ml Balance 240 ml Current Medications: I have reviewed the current psychotropics carefully including drug interactions. Risk benefit ratio favors no change other than as noted in my dictated progress note. Diagnosis: Problems: (1) Anxiety disorder, unspecified (2) Dementia, vascular, with depression (3) Dementia, vascular, with delusions (4) Dementia in Alzheimer's disease with depression (5) Dementia in Alzheimer's disease with delusions (6) Dementia of the Alzheimer's type with early onset with behavioral disturbance (7) Major neurocognitive disorder (8) Impulse control disorder, unspecified NATHALY,MAN M MD Oct 19, 2020 07:52
--- NOTE | 2020-10-19 07:53 | PDOC ---
Exam Note: Richy Note: This is a late entry for 10/18/2020. Please also refer to the separate dictated note~for this date of service dictated separately.~Patient seen individually. Discussed the patient with Nursing staff reviewed the chart.~Reviewed interim history and current functioning. Reviewed vital signs,~Labs/ Radiology~and cur rent medications noted below. Continue current treatment with the changes noted in the dictated addendum note Assessment: Vital Signs/I&O: Vital Signs Date Time Temp Pulse Resp B/P (MAP) Pulse Ox O2 Delivery O2 Flow Rate FiO2 10/18/20 08:26 88 100/60 10/18/20 05:59 98.5 20 98 Room Air I & O 10/18/20 10/18/20 10/19/20 15:00 23:00 07:00 Intake Total 240 ml Balance 240 ml Current Medications: I have reviewed the current psychotropics carefully including drug interactions. Risk benefit ratio favors no change other than as noted in my dictated progress note. Diagnosis: Problems: (1) Anxiety disorder, unspecified (2) Dementia, vascular, with depression (3) Dementia, vascular, with delusions (4) Dementia in Alzheimer's disease with depression (5) Dementia in Alzheimer's disease with delusions (6) Dementia of the Alzheimer's type with early onset with behavioral disturbance (7) Major neurocognitive disorder (8) Impulse control disorder, unspecified MAYURI ANDERSEN MD Oct 19, 2020 07:53
== END 2020-10-18 10:15 | DRG 885 ==
LOC: GEROPSY 12:57
PROVIDERS: ADMIT Psychiatry & Neurology Psychiatry; ATTEND Psychiatry & Neurology Psychiatry
DX: F32.3 Major depressive disorder, single episode, severe with psychotic features (principal); F01.51 Vascular dementia, unspecified severity, with behavioral disturbance; E43 Unspecified severe protein-calorie malnutrition; I11.0 Hypertensive heart disease with heart failure; F02.81 Dementia in other diseases classified elsewhere, unspecified severity, with behavioral disturbance; N39.0 Urinary tract infection, site not specified; F63.9 Impulse disorder, unspecified; E11.9 Type 2 diabetes mellitus without complications; F17.200 Nicotine dependence, unspecified, uncomplicated; F41.9 Anxiety disorder, unspecified; G30.9 Alzheimer's disease, unspecified; I25.10 Atherosclerotic heart disease of native coronary artery without angina pectoris; I50.9 Heart failure, unspecified; J44.9 Chronic obstructive pulmonary disease, unspecified; Z96.641 Presence of right artificial hip joint; N40.0 Benign prostatic hyperplasia without lower urinary tract symptoms; Z66 Do not resuscitate; Z20.828 Contact with and (suspected) exposure to other viral communicable diseases; Z88.8 Allergy status to other drugs, medicaments and biological substances; Z79.899 Other long term (current) drug therapy; Z98.42 Cataract extraction status, left eye; Z98.41 Cataract extraction status, right eye; Z95.1 Presence of aortocoronary bypass graft; Z87.01 Personal history of pneumonia (recurrent); Z90.49 Acquired absence of other specified parts of digestive tract; Z68.24 Body mass index [BMI] 24.0-24.9, adult
CPT/HCPCS: 36415; 70450; 80053; 80164; 82140; 82947; 83540; 83550; 83735; 84436; 84480; 85025; 85379; 87086; J1815; U0003